=== PATIENT | male | born 1960 | race Caucasian/White ===

== ENCOUNTER 2021-11-28 16:04 | Emergency (ER) | payer OTHER ==
--- NOTE | 2021-11-28 17:36 | RAD REPORT ---
EXAM DESCRIPTION: RAD - Foot Right 3 View - 11/28/2021 5:24 pm CLINICAL HISTORY: Right foot pain status post injury FINDINGS: No fracture or dislocation is seen
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
[2021-11-28 18:17] VITALS: O2SAT 95
[2021-11-28 18:19] VITALS: BP 142/83; TEMP 98.3
== END 2021-11-28 18:12 | disposition home or self-care (01) ==
LOC: ER 16:04
DX: M79.674 Pain in right toe(s) (principal); Z88.8 Allergy status to other drugs, medicaments and biological substances

== ENCOUNTER 2022-02-07 21:06 | Emergency (ER) | payer OTHER ==
--- OUTSIDE RECORDS SUMMARY | 2022-02-07 21:10 | XMS REPORT | Continuity of Care Document ---
:1960 Author Organization [facility] t Address [address] [place] [address] Care Team Providers Name Role Phone Asked, No Pcp Primary Care Physician Unavailable Lux RN, Su Attending Clinician Unavailable Tonia Irby MD Attending Clinician TONIA IRBY Admitting Clinician Unavailable Payers Payer Name Policy Type Policy Number Effective Date Expiration Date S ource Problems Condition Condition Condition Status Onset Resolution Last Treating Co mments Source Name Details Category Date Date Treatment Clinician Date Neuropathy Neuropathy Disease Active 0 [facility] Hosp[facility] 00 l Gastroesop Gastroesop Disease Active M ethodi hageal hageal [address] [facility] reflux reflux 00:00: Hospita disease disease 00 l without without esophagiti esophagiti s s Chest pain Chest pain Disease Active 0 [facility] 00:00: Hospita 00 l PTSD PTSD Disease Active [facility] (post-trau (post-trau 3-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 matic 00:00: Hospita stress stress 00 l disorder) disorder) Allergies, Adverse Reactions, Alerts Allergy Allergy Status Severity Reaction(s) Onset Inactive Treating Comm ents Source Name Type Date Date Clinician Hydromor Propensi Active Anaphylaxis M ethodi phone ty to [address] adverse 00:00: Hospita reaction 00 l s to drug Social History Social Habit Start Date Stop Date Quantity Comments Source Sex Assigned At [birth year] [facility] 00:00:00 00:00:00 Smoking Status Start Date Stop Date Source Tobacco smoking consumption unknown [facility] Medications Ordered Filled Start Stop Current Ordering Indication Dosage Frequency Signature Comments Components Source Medication Medication Date Date Medication? Clinician (SIG) Name Name gabapentin Yes 800mg [id number] Take 800 [facility] (NEURONTIN) 08-08 [id number] mg by s t 800 mg 09:10: 3D mouth 3 Hospita tablet 05 (three) l times a day. omeprazole Yes 20mg Q.5D Take 20 mg M ethodi (PriLOSEC) 08-[address] 20 MG 09:10: (two) Hospita capsule 05 times a l day. FLUoxetine Yes 40mg QD Take 40 mg M ethodi (PROzac) 40 08-[address] MG capsule 09:10: daily. Hospi ta 05 l aspirin Yes 81mg QD Take 81 mg Meth elle (ECOTRIN) 08-[address] 81 MG 09:10: daily. Hospita enteric 05 l coated tablet nitroglycer 2021- No .4mg Place 1 Me thodi in 08-[address] (NITROSTAT) 00:00: 04:59 (0.4 mg Ho spita 0.4 MG SL 00 :00 total) l tablet under the tongue every 5 (five) minutes as needed for chest pain for up to 30 days. ranolazine 2021- No 500mg Q.5D Take 1 Met hodi (RANEXA) 08-[address] 500 MG 12 00:00: 04:59 (500 mg Hosp anshul hr ER 00 :00 total) by l tablet mouth in the morning and 1 tablet (500 mg total) before bedtime. Do all this for 30 days. atorvastati 2021- No 40mg QD Take 1 Met hodi n (Lipitor) 08-06 tablet (40 s t 40 mg 00:00: 04:59 mg total) Hospit a tablet 00 :00 by mouth l in the morning for 30 days. Vital Signs Vital Name Observation Time Observation Value Comments Source Systolic blood 2021-08-07 13:30:31 153 mm[Hg] [facility] Hospital pressure Diastolic blood 2021-08-07 13:30:31 78 mm[Hg] [facility] pressure Heart rate 2021-08-07 13:30:31 60 /min [facility] Body temperature 2021-08-07 13:30:31 36.33 [facility] Respiratory rate 2021-08-07 13:30:31 17 /min [facility] Oxygen saturation in 2021-08-07 13:30:31 96 /min [facility] Arterial blood by Pulse oximetry Body weight 2021-08-07 09:57:07 145.968 kg [facility] BMI 2021-08-07 09:57:07 42.46 kg/m2 [facility] Body height 2021-08-05 15:30:00 185.4 cm [facility] Procedures Procedure Date / Time Performed Performing Clinician Sour e HC COMPLETE BLD COUNT 2021-08-07 11:29:00 [facility] W/AUTO DIFF BASIC METABOLIC PANEL 2021-08-07 11:29:00 [facility] ESTIMATED GFR 2021-08-07 11:29:00 [facility] HC COMPLETE BLD COUNT 2021-08-06 11:33:00 [facility] W/AUTO DIFF BASIC METABOLIC PANEL 2021-08-06 11:33:00 [facility] ESTIMATED GFR 2021-08-06 11:33:00 [facility] NM MYOCARDIAL PERFUSION 2021-08-05 21:36:26 [facility] STRESS REST 1 DAY CV STRESS TEST NUCLEAR 2021-08-05 17:50:49 [facility] CARDIO CV SPECT CA SC TECH ONLY 2021-08-05 16:48:00 [facility] ORDER TTE COMPLETE, W 2021-08-05 16:00:00 [facility] CONTRAST, W DOPPLER ([id number]) TROPONIN T 2021-08-05 15:45:00 [facility] BASIC METABOLIC PANEL 2021-08-05 10:35:00 [facility] LIPID PANEL 2021-08-05 10:35:00 [facility] ESTIMATED GFR 2021-08-05 10:35:00 [facility] HC COMPLETE BLD COUNT 2021-08-05 10:35:00 [facility] W/AUTO DIFF ECG 12-LEAD 2021-08-05 08:44:31 [facility] COVID-19 ANTI-SPIKE IGG 2021-08-05 05:37:00 [facility] ANTIBODY TITER COVID-19 SEROLOGY 2021-08-05 05:37:00 [facility] PATIENT SURVEILLANCE HEMOGLOBIN A1C 2021-08-05 05:37:00 [facility] THYROID STIMULATING 2021-08-05 05:37:00 [facility] HORMONE T4, FREE 2021-08-05 05:37:00 [facility] TROPONIN T 2021-08-05 05:37:00 [facility] Plan of Care Planned Activity Planned Date Details Comments Source Future Scheduled 2022-02-03 HEPATITIS B VACCINES [facility] Test 06:47:48 (1 of 3 - 3-dose series) [code = HEPATITIS B VACCINES (1 of 3 - 3-dose series)] Future Scheduled 2022-02-03 COVID-19 VACCINE (#1) [facility] Test 06:47:48 [code = COVID-19 VACCINE (#1)] Future Scheduled 2022-02-03 Hepatitis C screening [facility] Test 06:47:48 (procedure) [code = 810362040] Future Scheduled 2022-02-[address] [facility] Test 06:47:48 [code = COLONOSCOPY SCREENING] Future Scheduled 2022-02-03 SHINGLES VACCINES (1 [facility] Test 06:47:48 of 2) [code = SHINGLES VACCINES (1 of 2)] Future Scheduled 2022-02-03 INFLUENZA VACCINE Method [facility] Test 06:47:48 [code = INFLUENZA VACCINE] Encounters Start End Encounter Admission Attending Care Care Encounter Source Date/Time Date/Time Type Type Clinicians Facility Department ID 2021-08-09 2021-08-09 [facility], [id number] [facility] 00:00:00 00:00:[place] [id number] [id number] Hospit a .[id number] l .8 2021-08-04 2021-08-07 [facility], 1.2.840.1 [id number] Methodi 21:39:00 09:10:00 Encounter Tonia Martinez [id number] [id number] Hospit [id number] .[id number] l .8 2021-08-04 2021-08-07 [place] [id number] 51 [place] 00:00:00 00:00:[address] TONIA [address] 2021-08-05 2021-08-05 [facility], 1.2.840.1 [id number] Methodi 14:40:10 23:59:00 Encounter Tonia Martinez [id number] [id number] Hospit a .[id number] l .8 2021-08-05 2021-08-05 [facility] 61 [place] 00:00:00 00:00:00 TONIA [address] Results Test Description Test Time Test Comments Results Result Comments Source Cv stress test 2021-08-06 11:09:55 Test Item Value Reference Range Interpretation Comme nts Resting HR (test code = 9919508947) Resting BP (test code = 2311306975) Peak MET Achieved (test code = 4642882765) Protocol Name (test code = 3758222034) REGADENO Time in Exercise Phase (test code = 00:01:00 3059530994) Max Systolic BP (test code = 2907450719) Max Diastolic BP (test code = 9222371481) Max Heart Rate (test code = 5725904049) Max Predicted Heart Rate (test code = 2409088794) Target HR Formula (test code = (220 - Age)*100% 2146837137) Test Indication (test code = chest pain 0699156260) Arrhy During Ex (test code = 9330269973) ECG Interp Before EX (test code = 3813625644) ECG Interp During Ex (test code = 9922686384) Ex Summary Comment (test code = 0217959285) Overall HR Response to Exercise (test code = 7417925046) Overall BP Response To Exercise (test code = 4090646523) Reason for Termination (test code = Protocol Complete 6709671771) Stress Test Impression (test code = Waveform interpreted in report associated 0122523636) with image study. No interpretation is provided as part of this Stress ECG report.--Electronically Signed By Wiley AVALOS, Doug ([id number]), editorial specialist Annie Casiano ([id number]) on 08/06/2021 5:09:51 [facility] [id number] 17:58:43 Test Item Value Reference Range Interpretation Comments Ventricular rate (test code = 253) Atrial rate (test code = 255) WI interval (test code = 266) QRSD interval (test code = 260) QT interval (test code = 264) QTC interval (test code = 265) P axis 1 (test code = 267) QRS axis 1 (test code = 268) T wave axis (test code = 270) EKG impression (test Sinus code = 273) bradycardia-Incomplet e right bundle branch block-Nonspecific T wave abnormality-Abnormal ECG-No previous ECGs available-Electronica lly Signed By Min Dove MD ([id number]) on 08/05/2021 11:58:42 AM [facility]
[2022-02-07 21:41] LABS: Urine Blood Negative (Negative); Urine Glucose Negative (Negative); Urine Protein Trace (Negative); Urine Specific Gravity >=1.030 (1.005-1.030); Urine pH 5.5 (5.0-7.0)
[2022-02-07] MEDS ORDERED: HYDROCODONE/APAP 10/325 TAB ONE (21:43)
[2022-02-07] MEDS ORDERED: KETOROLAC 30 MG/ML INJ ONE (21:43)
--- NOTE | 2022-02-07 22:24 | RAD REPORT ---
EXAM DESCRIPTION: CT - Stone Protocol - 02/07/2022 9:52 pm CLINICAL HISTORY: flank pain COMPARISON: No comparisons TECHNIQUE: Axial 3 mm thick images were obtained without oral or IV contrast. The [id number] span s the entirety of the system including uppermost abdomen and lung bases. All CT scans are performed using dose optimization technique as appropriate and may include automated exposure control or mA/KV adjustment according to patient size. FINDINGS: No hydronephrosis is present and no obstructing ureteral calculi. No nonobstructing calcul i seen. In the lateral mid left kidney there is a 3.3 centimeter round low-attenuation mass with flui d attenuation value. A 4.5 centimeter fluid attenuation mass is present in the lower pole of the left kidney. These are not fully characterized but almost certainly incidental cysts. No suspicious renal masses. Isodense masses and pyelonephritis are not excluded on a stone protocol CT scan. No signific ant adrenal finding. No urinary bladder suspicious finding. Prostate gland is enlarged. Imaged portions of the liver, spleen and pancreas show no suspicious findings on non-contrast imaging . Liver attenuation is borderline fatty infiltrated. Cholecystectomy clips are present. No biliary tr ee dilatation seen. No suspicious bowel findings. Appendix is normal. No mass or bulky lymphadenopathy. 3 centimeter fat only umbilical hernia is present. No free air, sherin e fluid or inflammatory stranding. No significant bony abnormality. L5-S1 degenerative disc disease is present with prominent facet dege nerative change at this level. IMPRESSION: No hydronephrosis, obstructing calculus or other acute finding. Isodense masses and pyelonephritis are not excluded on stone protocol technique.Two round low-density masses of the left kidney is almost certainly incidental cysts.
--- NOTE | 2022-02-07 22:40 | ER ---
Nurse's Notes [facility] Name: Aravind Tyler Age: 61 yrs Sex: Male : 1960 Arrival Date: 02/07/2022 Time: 21:12 Bed 15 Private MD: Diagnosis: Low back pain Presentation: 02/07 21:14 Chief complaint: Patient states: "I either have a kidney stone or threw my back out". as6 Coronavirus screen: At this time, the client does not indicate any symptoms associated with coronavirus-19. Ebola Screen: No symptoms or risks identified at this time. Initial Sepsis Screen: Does the patient meet any 2 criteria? No. Patient's initial sepsis screen is negative. Does the patient have a suspected source of infection? No. Patient's initial sepsis screen is negative. Risk Assessment: Do you want to hurt yourself or someone else? Patient reports no desire to harm self or others. Onset of symptoms was February 03, 2022. 21:14 Method Of Arrival: Wheelchair as6 21:14 Acuity: TED 3 as6 Triage Assessment: 21:25 General: Appears uncomfortable, Behavior is calm, cooperative. Pain: Complains of pain as6 in right flank. Historical: - Allergies: 21:20 Dilaudid; as6 - Home Meds: 21:20 gabapentin 800 mg oral tab 1 tab 3 times per day [Active]; omeprazole 20 mg Oral cpDR 1 as6 cap once daily [Active]; aspirin 81 mg Oral cap 1 cap once daily [Active]; atorvastatin oral [Active]; - PMHx: 21:20 back injury; Kidney stone; Hypertensive disorder; Hypercholesterolemia; as6 - PSHx: 21:20 knee; back; shoulder; Cholecystectomy; hernia; as6 - Immunization history:: Client reports receiving the 2nd dose of the Covid vaccine, moderna . - Social history:: Smoking status: Patient denies any tobacco usage or history of. Screenin:44 Abuse screen: Denies threats or abuse. Nutritional screening: No deficits noted. ja4 Tuberculosis screening: No symptoms or risk factors identified. Fall Risk Ambulatory Aid- None/Bed Rest/Nurse Assist (0 pts). Assessment: 21:44 General: Appears uncomfortable, obese, Behavior is calm, cooperative, appropriate for ja4 age. Pain: Complains of pain in back. : Reports pain. Vital Signs: 21:14 BP 145 / 91; Pulse 76; Resp 18 S; Temp 98.0(O); Pulse Ox 96% on R/A; Weight 136.08 kg as6 (R); Height 6 ft. 1 in. (185.42 cm) (R); Pain 7/10; 22:49 BP 145 / 91; Pulse 76; Resp 16; Pulse Ox 96% on R/A; ja4 21:14 Body Mass Index 39.58 (136.08 kg, 185.42 cm) as6 ED Course: 21:12 Patient arrived in ED. bp1 21:15 [facility] kb 21:15 Hood Batista MD is Attending Physician. kb 21:20 Triage completed. as6 21:25 Arm band placed on. as6 21:35 Slava Mcintosh, RN is Primary Nurse. ja4 21:44 No provider procedures requiring assistance completed. ja4 21:54 Stone Protocol In Process Unspecified. EDMS Administered Medications: 21:40 Drug: Ketorolac 30 mg Route: IM; Site: right deltoid; ja4 21:40 Drug: [place] (HYDROcodone-acetaminophen) 10 mg-325 mg 1 tabs Route: PO; ja4 Medication: 21:44 VIS not applicable for this client. ja4 Outcome: 22:39 Discharge ordered by . kb 22:49 Discharged to home ambulatory. ja4 22:49 Condition: stable 22:49 Discharge instructions given to patient, Instructed on discharge instructions, follow up and referral plans. medication usage, Prescriptions given X 2. 22:50 Patient left the ED. ja4 Signatures: Dispatcher [employer] EDMS Fanny Lara FNP-C FNP-Ckb [place], Brittany bp1 Slawson, Ashby, RN RN as6 Slava Mcintosh, CHAIM RN ja4
--- NOTE | 2022-02-07 22:40 | EDPHYS ---
Physician Documentation [facility] Name: Aravind Tyler Age: 61 yrs Sex: Male : 1960 Arrival Date: 02/07/2022 Time: 21:12 Bed 15 Private MD: ED Physician Hood Batista HPI: 02/07 22:32 This 61 yrs old Male presents to ER via Wheelchair with complaints of Back Pain, kb Possible Kidney Stone. 22:32 The patient presents with pain that is acute, with no known mechanism of injury. The kb symptoms are located in the right mid back and right low back. Onset: The symptoms/episode began/occurred today. The pain radiates to the abdomen and right leg. Associated signs and symptoms: The patient has no apparent associated signs or symptoms. The problem was sustained from unknown cause. Modifying factors: The patient symptoms are alleviated by nothing, the patient symptoms are aggravated by any movement. Severity of symptoms: At their worst the symptoms were moderate, in the emergency department the symptoms are unchanged. The patient has not experienced similar symptoms in the past. The patient has not recently seen a physician. Pt reports right flank/low back pain that radiates around to abd and down leg. States he has chronic back pain that gives him trouble every once in a while and also has a history of kidney stones so he isn't sure which is causing the pain today. Historical: - Allergies: 21:20 Dilaudid; as6 - Home Meds: 21:20 gabapentin 800 mg oral tab 1 tab 3 times per day [Active]; omeprazole 20 mg Oral cpDR 1 as6 cap once daily [Active]; aspirin 81 mg Oral cap 1 cap once daily [Active]; atorvastatin oral [Active]; - PMHx: 21:20 back injury; Kidney stone; Hypertensive disorder; Hypercholesterolemia; as6 - PSHx: 21:20 knee; back; shoulder; Cholecystectomy; hernia; as6 - Immunization history:: Client reports receiving the 2nd dose of the Covid vaccine, moderna . - Social history:: Smoking status: Patient denies any tobacco usage or history of. ROS: 22:30 Constitutional: Negative for fever, chills, and weight loss. kb 22:30 Back: Positive for flank pain, on the right. 22:30 All other systems are negative. Exam: 22:32 Constitutional: This is a well developed, well nourished patient who is awake, alert, kb and in no acute distress. Head/Face: Normocephalic, atraumatic. ENT: Moist Mucous membranes Cardiovascular: Regular rate and rhythm with a normal S1 and S2. No gallops, murmurs, or rubs. No pulse deficits. Respiratory: Respirations even and unlabored. No increased work of breathing. Talking in full sentences Abdomen/GI: Soft, non-tender. No distention Skin: Warm, dry with normal turgor. Normal color. MS/ Extremity: Pulses equal, no cyanosis. Neurovascular intact. Full, normal range of motion. Neuro: Awake and alert, GCS 15, oriented to person, place, time, and situation. Moves all extremities. Normal gait. Psych: Awake, alert, with orientation to person, place and time. Behavior, mood, and affect are within normal limits. 22:32 Back: pain, that is moderate, of the right mid back and right low back, ROM is painful, normal spinal alignment noted, CVA tenderness, that is mild, is noted on the right, vertebral tenderness, is not appreciated. Vital Signs: 21:14 BP 145 / 91; Pulse 76; Resp 18 S; Temp 98.0(O); Pulse Ox 96% on R/A; Weight 136.08 kg as6 (R); Height 6 ft. 1 in. (185.42 cm) (R); Pain 7/10; 22:49 BP 145 / 91; Pulse 76; Resp 16; Pulse Ox 96% on R/A; ja4 21:14 Body Mass Index 39.58 (136.08 kg, 185.42 cm) as6 MDM: 21:19 Patient medically screened. kb 22:30 Data reviewed: vital signs, nurses notes. Data interpreted: Pulse oximetry: on room air kb is 96 %. Interpretation: normal. Counseling: I had a detailed discussion with the patient and/or guardian regarding: the historical points, exam findings, and any diagnostic results supporting the discharge/admit diagnosis, lab results, radiology results, the need for outpatient follow up, a family practitioner, to return to the emergency department if symptoms worsen or persist or if there are any questions or concerns that arise at home. 02/07 21:42 Order name: Urine Dipstick-Ancillary; Complete Time: 21:44 EDMS 02/07 21:20 Order name: CT Stone Protocol kb 02/07 21:20 Order name: Urine Dipstick-Ancillary (obtain specimen); Complete Time: 21:40 kb 02/07 21:24 Order name: Stone Protocol; Complete Time: 22:26 EDMS Administered Medications: 21:40 Drug: Ketorolac 30 mg Route: IM; Site: right deltoid; ja4 21:40 Drug: Maybell (HYDROcodone-acetaminophen) 10 mg-325 mg 1 tabs Route: PO; ja4 Disposition: 02/08 00:02 Co-signature as Attending Physician, Hood Batista MD. rn Disposition Summary: 02/07/22 22:39 Discharge Ordered Location: Home kb Condition: Stable kb Diagnosis - Low back pain kb Followup: kb - With: Emergency Department - When: As needed - Reason: Worsening of condition Followup: kb - With: Private Physician - When: 2 - 3 days - Reason: Recheck today's complaints, Continuance of care, Re-evaluation by your physician Discharge Instructions: - Discharge Summary Sheet kb - Musculoskeletal Pain kb - Chronic Back Pain, [id number] kb Forms: - Medication Reconciliation Form kb - Thank You Letter kb - Antibiotic Education kb - Prescription Opioid Use kb Prescriptions: - Cyclobenzaprine 10 mg Oral Tablet - take 1 tablet by ORAL route every 8 hours As needed; 15 tablet; Refills: 0, kb Product Selection Permitted - Diclofenac Sodium 75 mg Oral tablet,delayed release (DR/EC) - take 1 tablet by ORAL route 2 times per day As needed; 30 tablet; Refills: 0, kb Product Selection Permitted Signatures: Dispatcher [employer] EDAR Fanny Lara, [employer] MANAGEMENT DEVELOPER-Hood Soliz MD MD rn Slawson, Ashby, RN RN as6 Slava Mcintosh RN RN ja4
[2022-02-08 01:35] VITALS: BP 145/91; TEMP 98; O2SAT 96
== END 2022-02-07 22:50 | disposition home or self-care (01) ==
LOC: ER 21:06
DX: M54.50 Low back pain, unspecified (principal); I10 Essential (primary) hypertension; Z87.442 Personal history of urinary calculi; Z79.82 Long term (current) use of aspirin; Z88.8 Allergy status to other drugs, medicaments and biological substances
CPT/HCPCS: 74176; 76377; 81003; 96372; 99283

== ENCOUNTER 2023-03-18 14:12 | Emergency (ER) | payer OTHER ==
--- OUTSIDE RECORDS SUMMARY | 2023-03-18 15:36 | XMS REPORT | Continuity of Care Document ---
:1960 Author Organization [facility] t Address [address] [place] [address] [address] [place] [address] Care Team Providers Name Role Phone Missy Fernandez Primary Care Physician Missy Fernandez Attending Clinician Unavailable Clifford Mckeon Attending Clinician Unavailable Doctor Unassigned, Hyrum Attending Clinician Unavailable MAURICIO MIGUEL Attending Clinician Unavailable Elinor Irby DO Attending Clinician Mauricio Miguel MD Attending Clinician Su Wasserman RN Attending Clinician Unavailable Tonia Irby MD Attending Clinician Missy Fernandez Admitting Clinician Unavailable ELINOR IRBY Admitting Clinician Unavailable TONIA IRBY Admitting Clinician Unavailable Payers Payer Name Policy Type Policy Number Effective Date Expiration Date Amee LUKE [id number] 2022 00:00:00 Problems Condition Condition Condition Status Onset Resolution Last Treating Co mments Source Name Details Category Date Date Treatment Clinician Date Gastroesop Gastroesop Disease Active 2022-0 M ethodi hageal hageal 3-05 st reflux reflux 00:00: Hospita disease disease 00 l without without esophagiti esophagiti s s Chest pain Chest pain Disease Active M ethodi [facility] 00:00: Hospita 00 l PTSD PTSD Disease Active Methodi (post-trau (post-trau 3 st matic matic 00:00: Hospita stress stress 00 l disorder) disorder) Neuropathy Neuropathy Disease Active M ethodi [facility] 00:00: Hospita 00 l [id number] Derangemen Problem C ommon [id number] t of right Spiri t knee - [facility] [id number] [place] [address] osteoarthr Spirit itis of - CHI right knee [facility] [id number] [place], [place] [id number] joint, Spirit knee, - [facility] right [facility] [id number] Other tear Problem Co mmon of medial Spirit meniscus - CHI of right St knee as [facility] current Medical injury, Center initial encounter [id number] Coronary Problem Commo n artery Spirit disease of - [facility] [place] [facility] artery of [facility] [place] Medical heart with Center stable angina pectoris [id number] Gastric Problem Commo n ulcer, Spirit unspecifie - CHI d as acute or [facility] chronic, Medical without Center hemorrhage or perforatio n [id number] Current Problem Common moderate Spirit episode of - CHI major St depressive [facility] disorder Medical without Center prior episode [id number] Pure Problem Common hyperchole Spirit sterolemia - [facility] [id number] Anxiety Problem Common Spirit - [facility] [id number] YEIMI Problem Common (obstructi Spirit ve sleep - CHI apnea) [facility] [id number] Gastroesop Problem Co mmon hageal Spirit reflux - CHI disease St with [facility] esophagiti Medica l s without Center hemorrhage Allergies, Adverse Reactions, Alerts Allergy Allergy Status Severity Reaction(s) Onset Inactive Treating Comm ents Source Name Type Date Date Clinician clindamy DA Active SV Hives 2022-06 [facility] ann 0-16 00:00: 00 hydromor DA Active SV Difficulty 2022-06 [facility] m phone Breathing 0-12 00:00: 00 Hydromor Propensi Active Other - See U nivers phone ty to comments 07-03 ity of (Pf) adverse 00:00: [place] reaction 00 Medical s Branch HYDROMOR DRUG Active Other-Cmnt Univ ers PHONE 07-03 ity of (PF) 00:00: [place] 00 Medical Branch Hydromor Propensi Active Anaphylaxis M ethodi phone ty to 08-04 st adverse 00:00: Hospita reaction 00 l s to drug 13644 Drug Active Unknown Common allergy [facility] hydromor hydromor Active Unknown Commo n phone phone [facility] NO KNOWN Drug Active Univers ALLERGIE Class ity of [facility] Social History Social Habit Start Date Stop Date Quantity Comments Source History of Tobacco Common [facility] Use [facility] Sexual orientation [facility] Exposure to 2022-06-23 2022-07-03 Not sure [facility] SARS-CoV-2 (event) 00:00:00 14:17:00 Medica Branch History of Social 2021-08-06 2021-08-06 [facility] 00:00:00 Sex Ass[birth year] At [birth year] Met [facility] 00:00:00 00:00:00 Smoking Status Start Date Stop Date Source Tobacco smoking consumption [facility] unknown Never Smoker [facility] Medications Ordered Filled Start Stop Current Ordering Indication Dosage Frequency Signature Comments Components Source Medication Medication Date Date Medication? Clinician (SIG) Name Name iopamidol 2022- No [id number] 79mL 79 mL, Univers (ISOVUE 07-03 Intravenou ity o f 370-500 mL) 23:15: 23:15 s, ONCE, 1 [place] injection 00 :00 dose, On Medica l 79 mL 07/03/22 Branch at 1715, Routine ketorolac 2022- No 30mg 30 mg, Unive rs (TORADOL) 07-03 Slow IV ity of injection 23:00: 22:01 Push, [place] 30 mg 00 :00 ONCE, 1 Medical dose, On Branch 07/03/22 at 1700, Routine NaCl 0.9% 2022- No 1000mL at 999 Uni vers (NS) bolus 07-03 mL/hr, ity of infusion 21:45: 01:57 1,000 mL, Dami as 1,000 mL 00 :00 IV Medical Infusion, Branch ONCE, 1 dose, On Fri07/03/22 at 1545, NICK dexamethaso 0 2022- No 10mg 10 mg, Uni vers ne sod phos 07-03 Slow IV ity of PF 21:00: 21:55 Push, [place] injection 00 :00 ONCE, 1 Medical 10 mg dose, On Branch Fri07/03/22 at 1500, 1 mL diphenhydrA 2022- No 50mg 50 mg, Uni vers MINE 07-03 Slow IV ity of (BENADRYL) 21:00: 21:57 Push, [place] injection 00 :00 ONCE, 1 Medical 50 mg dose, On Branch Fri07/03/22 at 1500, STAT metoclopram 0 2022- No 10mg 10 mg, Uni vers gabrielle HCl 07-03 Slow IV ity of (REGLAN) 21:00: 21:52 Push, [place] injection 00 :00 ONCE, 1 Medical 10 mg dose, On Branch Fri07/03/22 at 1500, NICK butalbital- 2022-0 Yes [id number] 1{tbl} Take 1 Univers acetaminoph 2-01 tablet by ity of en-caff 00:00: mouth [place] 50-325-40 00 every 6 Medical mg tablet (six) Branch hours as needed (Headache) . butalbital- 2022-0 Yes [id number] 1{tbl} Take 1 Univers acetaminoph 2-01 tablet by ity of en-caff 00:00: mouth [place] 50-325-40 00 every 6 Medical mg tablet (six) Branch hours as needed (Headache) . Lidocaine Lidocaine 2022-0 No 10mg Com 06-13 Spirit 00:00: - [facility] Kenalog Kenalog 2022-0 No 40mg Common (Triamcinol (Triamcinol 1-12 S pirit one) one) 00:00: - [facility] Lidocaine Lidocaine 2022-0 No 10mg Com 06-13 Spirit 00:00: - [facility] Kenalog Kenalog 2023-0 No 40mg Common (Triamcinol (Triamcinol 1-12 S pirit one) one) 00:00: - CHI 00 [facility] Lidocaine Lidocaine 2022-0 No 10mg Com mon - Spirit 00:00: - CHI 00 [facility] Kenalog Kenalog 2022-0 No 40mg Common (Triamcinol (Triamcinol 1-12 S pirit one) one) 00:00: - CHI 00 [facility] Meloxicam Meloxicam 2022-0 3- No 1{table QD Meloxicam 7.5 MG 7.5 MG 06-13 t} 7.5 MG 00:00: 00:00 00 :00 Meloxicam Meloxicam 2022-0 2022- No 1{table QD Meloxicam 7.5 MG 7.5 MG 06-13 t} 7.5 MG 00:00: 00:00 00 :00 Meloxicam Meloxicam 2022-0 2022- No 1{table QD Meloxicam 7.5 MG 7.5 MG 06-13 t} 7.5 MG 00:00: 00:00 00 :00 gabapentin 2021-0 Yes 800mg Q.[id number] Take 800 Methodi (NEURONTIN) 3-09 [id number] mg by s t 800 mg 09:10: 3D mouth 3 Hospita tablet 05 (three) l times a day. omeprazole 2021-0 Yes 20mg Q.5D Take 20 mg M ethodi (PriLOSEC) 3- by mouth 2 st 20 MG 09:10: (two) Hospita capsule 05 times a l day. FLUoxetine 2021-0 Yes 40mg QD Take 40 mg M ethodi (PROzac) 40 3-[address] MG capsule 09:10: daily. Hospi ta 05 l aspirin 2-0 Yes 81mg QD Take 81 mg Meth elle (ECOTRIN) 3-[address] 81 MG 09:10: daily. Hospita enteric 05 l coated tablet gabapentin 2-0 Yes 800mg Q.28018308 Take 800 Methodi (NEURONTIN) 3-09 [id number] mg by s t 800 mg 09:10: 3D mouth 3 Hospita tablet 05 (three) l times a day. omeprazole 2022-0 Yes 20mg Q.5D Take 20 mg M ethodi (PriLOSEC) 3-[address] 20 MG 09:10: (two) Hospita capsule 05 times a l day. FLUoxetine 2022-0 Yes 40mg QD Take 40 mg M ethodi (PROzac) 40 3-[address] MG capsule 09:10: daily. Hospi ta 05 l aspirin 2022-0 Yes 81mg QD Take 81 mg Meth elle (ECOTRIN) 3-[address] 81 MG 09:10: daily. Hospita enteric 05 l coated tablet gabapentin 2-0 Yes 800mg Q.[id number] Take 800 Methodi (NEURONTIN) - [id number] mg by s t 800 mg 09:10: 3D mouth 3 Hospita tablet 05 (three) l times a day. omeprazole 2-0 Yes 20mg Q.5D Take 20 mg M ethodi (PriLOSEC) 3-[address] 20 MG 09:10: (two) Hospita capsule 05 times a l day. FLUoxetine 2-0 Yes 40mg QD Take 40 mg M ethodi (PROzac) 40 3-[address] MG capsule 09:10: daily. Hospi ta 05 l aspirin 2-0 Yes 81mg QD Take 81 mg Meth elle (ECOTRIN) - by mouth st 81 MG 09:10: daily. Hospita enteric 05 l coated tablet nitroglycer 2021- No .4mg Place 1 Me thodi in 08-[address] (NITROSTAT) 00:00: 04:59 (0.4 mg Ho spita 0.4 MG SL 00 :00 total) l tablet under the tongue every 5 (five) minutes as needed for chest pain for up to 30 days. ranolazine 2021-2021- No 500mg Q.5D Take 1 Met hodi (RANEXA) 08-[address] 500 MG 12 00:00: 04:59 (500 mg Hosp anshul hr ER 00 :00 total) by l tablet mouth in the morning and 1 tablet (500 mg total) before bedtime. Do all this for 30 days. atorvastati 2021-2021- No 40mg QD Take 1 Met hodi n (Lipitor) 08-06 tablet (40 s t 40 mg 00:00: 04:59 mg total) Hospit a tablet 00 :00 by mouth l in the morning for 30 days. Cetirizine Cetirizine No 1{table QD Cetirizine HCl 10 MG HCl 10 MG t} HCl 10 MG Nitroglycer Nitroglycer No Nitroglyce in 0.4 MG in 0.4 MG rin 0.4 MG Fluticasone Fluticasone No 1{spray QD Fluticason Propionate Propionate _in_eac e 50 MCG/ACT 50 MCG/ACT h_nostr Propionate il} 50 MCG/ACT prednisoLON prednisoLON No 1{drop_ BID prednisoLO E Acetate 1 E Acetate 1 into_af NE Acetate % % fected_ 1 % eye} Atorvastati Atorvastati No 1{table QD Atorvastat n Calcium n Calcium t} in Calcium 80 MG 80 MG 80 MG Cetirizine Cetirizine No 1{table QD Cetirizine HCl 10 MG HCl 10 MG t} HCl 10 MG FLUoxetine FLUoxetine No 1{capsu QID FLUoxetine HCl 20 MG HCl 20 MG le} HCl 20 MG Gabapentin Gabapentin No 1{capsu TID Gabapentin 400 MG 400 MG le} 400 MG Ranolazine Ranolazine No 1{table BID Ranolazine ER 500 MG ER 500 MG t} ER 500 MG Omeprazole Omeprazole No QD Omeprazole 20 MG 20 MG 20 MG hydrOXYzine hydrOXYzine No 1{table QD hydrOXYzin HCl 25 MG HCl 25 MG t_at_be e HCl 25 dtime_a MG s_neede d} Aspirin 81 Aspirin 81 No 1{table QD Aspirin 81 MG MG t} MG amLODIPine amLODIPine No 1{table QD amLODIPine Besylate 5 Besylate 5 t} Besylate 5 MG MG MG Aspirin 81 Aspirin 81 No 1{table QD Aspirin 81 MG MG t} MG hydrOXYzine hydrOXYzine No 1{table QD hydrOXYzin HCl 25 MG HCl 25 MG t_at_be e HCl 25 dtime_a MG s_neede d} Ranolazine Ranolazine No 1{table BID Ranolazine ER 500 MG ER 500 MG t} ER 500 MG FLUoxetine FLUoxetine No 1{capsu QID FLUoxetine HCl 20 MG HCl 20 MG le} HCl 20 MG Atorvastati Atorvastati No 1{table QD Atorvastat n Calcium n Calcium t} in Calcium 80 MG 80 MG 80 MG Omeprazole Omeprazole No QD Omeprazole 20 MG 20 MG 20 MG prednisoLON prednisoLON No 1{drop_ BID prednisoLO E Acetate 1 E Acetate 1 into_af NE Acetate % % fected_ 1 % eye} Gabapentin Gabapentin No 1{capsu TID Gabapentin 400 MG 400 MG le} 400 MG Fluticasone Fluticasone No 1{spray QD Fluticason Propionate Propionate _in_eac e 50 MCG/ACT 50 MCG/ACT h_nostr Propionate il} 50 MCG/ACT Nitroglycer Nitroglycer No Nitroglyce in 0.4 MG in 0.4 MG rin 0.4 MG amLODIPine amLODIPine No 1{table QD amLODIPine Besylate 5 Besylate 5 t} Besylate 5 MG MG MG Cetirizine Cetirizine No 1{table QD Cetirizine HCl 10 MG HCl 10 MG t} HCl 10 MG Aspirin 81 Aspirin 81 No 1{table QD Aspirin 81 MG MG t} MG hydrOXYzine hydrOXYzine No 1{table QD hydrOXYzin HCl 25 MG HCl 25 MG t_at_be e HCl 25 dtime_a MG s_neede d} Ranolazine Ranolazine No 1{table BID Ranolazine ER 500 MG ER 500 MG t} ER 500 MG FLUoxetine FLUoxetine No 1{capsu QID FLUoxetine HCl 20 MG HCl 20 MG le} HCl 20 MG Atorvastati Atorvastati No 1{table QD Atorvastat n Calcium n Calcium t} in Calcium 80 MG 80 MG 80 MG Omeprazole Omeprazole No QD Omeprazole 20 MG 20 MG 20 MG prednisoLON prednisoLON No 1{drop_ BID prednisoLO E Acetate 1 E Acetate 1 into_af NE Acetate % % fected_ 1 % eye} Gabapentin Gabapentin No 1{capsu TID Gabapentin 400 MG 400 MG le} 400 MG Fluticasone Fluticasone No 1{spray QD Fluticason Propionate Propionate _in_eac e 50 MCG/ACT 50 MCG/ACT h_nostr Propionate il} 50 MCG/ACT Nitroglycer Nitroglycer No Nitroglyce in 0.4 MG in 0.4 MG rin 0.4 MG amLODIPine amLODIPine No 1{table QD amLODIPine Besylate 5 Besylate 5 t} Besylate 5 MG MG MG Cetirizine Cetirizine No 1{table QD Cetirizine HCl 10 MG HCl 10 MG t} HCl 10 MG Aspirin 81 Aspirin 81 No 1{table QD Aspirin 81 MG MG t} MG hydrOXYzine hydrOXYzine No 1{table QD hydrOXYzin HCl 25 MG HCl 25 MG t_at_be e HCl 25 dtime_a MG s_neede d} Ranolazine Ranolazine No 1{table BID Ranolazine ER 500 MG ER 500 MG t} ER 500 MG FLUoxetine FLUoxetine No 1{capsu QID FLUoxetine HCl 20 MG HCl 20 MG le} HCl 20 MG Atorvastati Atorvastati No 1{table QD Atorvastat n Calcium n Calcium t} in Calcium 80 MG 80 MG 80 MG Omeprazole Omeprazole No QD Omeprazole 20 MG 20 MG 20 MG prednisoLON prednisoLON No 1{drop_ BID prednisoLO E Acetate 1 E Acetate 1 into_af NE Acetate % % fected_ 1 % eye} Gabapentin Gabapentin No 1{capsu TID Gabapentin 400 MG 400 MG le} 400 MG Fluticasone Fluticasone No 1{spray QD Fluticason Propionate Propionate _in_eac e 50 MCG/ACT 50 MCG/ACT h_nostr Propionate il} 50 MCG/ACT Nitroglycer Nitroglycer No Nitroglyce in 0.4 MG in 0.4 MG rin 0.4 MG amLODIPine amLODIPine No 1{table QD amLODIPine Besylate 5 Besylate 5 t} Besylate 5 MG MG MG Vital Signs Vital Name Observation Time Observation Value Comments Source Systolic blood 2022-07-04 00:30:00 147 mm[Hg] [facility] Diastolic blood 2022-07-04 00:30:00 89 mm[Hg] [facility] Heart rate 2022-07-04 00:30:00 54 /min [facility] Respiratory rate 2022-07-04 00:30:00 10 /min [facility] Oxygen saturation in 2022-07-04 00:30:00 95 /min [facility] Arterial blood by [facility] Pulse oximetry Branch Body temperature 2022-07-03 20:19:00 37.28 Chanel [facility] Body height 2022-07-03 20:19:00 185.4 cm [facility] Body weight 2022-07-03 20:19:00 131.543 kg [facility] BMI 2022-07-03 20:19:00 38.26 kg/m2 [facility] height 2022-06-13 09:30:00 70 [in_i] Common [facility] weight 2022-06-13 09:30:00 301 [lb_av] Common [facility] temperature 2022-06-13 09:30:00 97.3 [degF] Common [facility] bmi 2022-06-13 09:30:00 43.18 kg/m2 Common [facility] blood pressure 2022-06-13 09:30:00 137 mm[Hg] Common [facility] - systolic [facility] blood pressure 2022-06-13 09:30:00 89 mm[Hg] Common [facility] - diastolic [facility] height 2022-05-15 09:00:00 70 [in_i] [facility] weight 2022-05-15 09:00:00 301.2 [lb_av] Common [facility] temperature 2022-05-15 09:00:00 97.6 [degF] [facility] bmi 2022-05-15 09:00:00 43.21 kg/m2 [facility] oximetry 2022-05-15 09:00:00 97 % [facility] respiratory rate 2022-05-15 09:00:00 17 /min Comm on Spirit - [facility] blood pressure 2022-05-15 09:00:00 132 mm[Hg] Common [facility] - systolic [facility] blood pressure 2022-05-15 09:00:00 80 mm[Hg] Common [facility] - diastolic [facility] Systolic blood 2021-08-07 13:30:31 153 mm[Hg] [facility] pressure Diastolic blood 2021-08-07 13:30:31 78 mm[Hg] [facility] pressure Heart rate 2021-08-07 13:30:31 60 /min [facility] Body temperature 2021-08-07 13:30:31 36.33 Chanel [facility] Respiratory rate 2021-08-07 13:30:31 17 /min [facility] Oxygen saturation in 2021-08-07 13:30:31 96 /min [facility] Arterial blood by Pulse oximetry Body weight 2021-08-07 09:57:07 145.968 kg [facility] BMI 2021-08-07 09:57:07 42.46 kg/m2 [facility] Body height 2021-08-05 15:30:00 185.4 cm [facility] Procedures Procedure Date / Time Performing Clinician Source Performed AUTHORIZATION FOR 2023-02-04 05:01:00 Doctor Unassigned, No [facility] CT HEAD WO CONTRAST 2022-07-03 22:17:04 Elinor Irby [facility] COMP. METABOLIC PANEL 2022-07-03 21:49:00 Elinor Irby [facility] ([id number]) [facility] CBC WITH DIFF 2022-07-03 21:49:00 Elinor Irby [facility] CONSENT/REFUSAL FOR 2022-07-03 20:11:43 [facility] NOTICE OF PRIVACY 2022-07-03 20:09:24 [facility] 2021-08-07 11:29:00 [facility] W/AUTO DIFF BASIC METABOLIC PANEL 2021-08-07 11:29:00 [facility] ESTIMATED GFR 2021-08-07 11:29:00 [facility] HC COMPLETE BLD COUNT 2021-08-06 11:33:00 [facility] W/AUTO DIFF BASIC METABOLIC PANEL 2021-08-06 11:33:00 [facility] ESTIMATED GFR 2021-08-06 11:33:00 [facility] NM MYOCARDIAL PERFUSION 2021-08-05 21:36:26 Tonia Irby [facility] STRESS REST 1 DAY CV STRESS TEST NUCLEAR 2021-08-05 17:50:49 [place] [facility] CARDIO CV SPECT CA SC TECH ONLY 2021-08-05 16:48:00 [facility] ORDER TTE COMPLETE, W 2021-08-05 16:00:00 [facility] CONTRAST, W DOPPLER ([id number]) TROPONIN T 2021-08-05 15:45:00 [facility] HC COMPLETE BLD COUNT 2021-08-05 10:35:00 [facility] W/AUTO DIFF BASIC METABOLIC PANEL 2021-08-05 10:35:00 [facility] LIPID PANEL 2021-08-05 10:35:00 [facility] ESTIMATED GFR 2021-08-05 10:35:00 [facility] ECG 12-LEAD 2021-08-05 08:44:31 [facility] COVID-19 ANTI-SPIKE IGG 2021-08-05 05:37:00 [facility] ANTIBODY TITER COVID-19 SEROLOGY 2021-08-05 05:37:00 [facility] PATIENT SURVEILLANCE HEMOGLOBIN A1C 2021-08-05 05:37:00 [facility] THYROID STIMULATING 2021-08-05 05:37:00 [facility] HORMONE T4, FREE 2021-08-05 05:37:00 [facility] TROPONIN T 2021-08-05 05:37:00 [facility] Plan of Care Planned Activity Planned Date Details Comments Source Future Scheduled 2023-03-18 Screening for [facility] Test 15:03:08 malignant neoplasm of colon (procedure) [code = 560968596] Future Scheduled 2023-03-18 Screening for [facility] Test 15:03:08 malignant neoplasm of colon (procedure) [code = 815607460] Future Scheduled 2023-03-18 Screening for [facility] Test 15:03:08 malignant neoplasm of colon (procedure) [code = 806844749] Future Scheduled 2023-03-18 COVID[facility] 15:03:08 [code = COVID-19 VACCINE (#1)] Future Scheduled 2023-03-18 [facility] Test 15:03:08 (procedure) [code = 389521018] Future Scheduled 2023-03-18 Scre[facility] for [facility] Test 15:03:08 malignant neoplasm of colon (procedure) [code = 387502797] Future Scheduled 2023-03-18 Scre[facility] for [facility] Test 15:03:08 malignant neoplasm of colon (procedure) [code = 717848087] Future Scheduled 2023-03-18 SHINGLES VACCINES (1 [facility] Test 15:03:08 of 2) [code = SHINGLES VACCINES (1 of 2)] Future Scheduled 2023-03-18 RSV VACCINES > 60 YR [facility] Test 15:03:08 (1 - 1-dose 60+ series) [code = RSV VACCINES > 60 YR (1 - 1-dose 60+ series)] Future Scheduled 2023-03-18 INFLUENZA VACCINE Method t Hospital Test 15:03:08 (#1) [code = INFLUENZA VACCINE (#1)] Future Scheduled 2023-02-07 Scre[facility] for [facility] Test 07:40:14 malignant neoplasm of colon (procedure) [code = 997602578] Future Scheduled 2023-02-07 Scre[facility] for [facility] Test 07:40:14 malignant neoplasm of colon (procedure) [code = 883027341] Future Scheduled 2023-02-07 [facility] Test 07:40:14 malignant neoplasm of colon (procedure) [code = 154840212] Future Scheduled 2023-02-07 COVID-19 VACCINE (#1) [facility] Test 07:40:14 [code = COVID-19 VACCINE (#1)] Future Scheduled 2023-02-07 [facility] Test 07:40:14 (procedure) [code = 146848112] Future Scheduled 2023-02-07 Scre[facility] Test 07:40:14 malignant neoplasm of colon (procedure) [code = 103130167] Future Scheduled 2023-02-07 [facility] Test 07:40:14 malignant neoplasm of colon (procedure) [code = 173148372] Future Scheduled 2023-02-07 SHINGLES VACCINES (1 [facility] Test 07:40:14 of 2) [code = SHINGLES VACCINES (1 of 2)] Future Scheduled 2023-02-07 INFLUENZA VACCINE [facility] Test 07:40:14 (#1) [code = INFLUENZA VACCINE (#1)] Future Scheduled 2022-02-03 HEPATITIS B VACCINES [facility] Test 06:47:48 (1 of 3 - 3-dose series) [code = HEPATITIS B VACCINES (1 of 3 - 3-dose series)] Future Scheduled 2022-02-03 COVID-19 VACCINE (#1) [facility] Test 06:47:48 [code = COVID-19 VACCINE (#1)] Future Scheduled 2022-02-03 Hepatitis C screening [facility] Test 06:47:48 (procedure) [code = 593919172] Future Scheduled 2022-02-03 COLONOSCOPY SCREENING [facility] Test 06:47:48 [code = COLONOSCOPY SCREENING] Future Scheduled 2022-02-03 SHINGLES VACCINES (1 [facility] Test 06:47:48 of 2) [code = SHINGLES VACCINES (1 of 2)] Future Scheduled 2022-02-03 INFLUENZA VACCINE [facility] Test 06:47:48 [code = INFLUENZA VACCINE] Encounters Start End Encounter Admission Attending Care Care Encounter Source Date/Time Date/Time Type Type Clinicians Facility Department ID 2022-07-12 Outpatient [place], [facility] [id number] Common 12:11:00 Missy [id number] [facility] 2022-07-10 Outpatient Wells, [facility] [id number] Common 13:19:02 Missy [id number] [facility] 2022-06-17 Outpatient Wells, [facility] [id number] Common 11:51:01 Missy [id number] [facility] 2022-06-13 Outpatient Wells, [facility] [id number] Common 11:15:03 Missy [id number] [facility] 2022-05-16 Outpatient Wells, [facility] [id number] Common 09:31:04 Missy [id number] [facility] 2022-05-15 Outpatient Rebecca STANDI STLMLC [id number] Common 08:32:04 Missy [id number] [facility] 2023-03-17 2023-03-17 Outpatient Urgent Clifford Mckeon [facility] [id number] [facility] 16:10:00 22:00:00 57 2023-03-17 2023-03-[address] [facility] [id number] [facility] [place] 16:10:00 16:10:00 57 2023-03-13 2023-03-13 Outpatient Urgent Clifford Mckeon [facility] JM0 [id number] [facility] 18:25:00 23:05:00 69 2023-02-04 2023-02-04 Orders Doctor PAULETTE [id number] Univers 00:00:00 00:00:00 Only Unassigned, MICHEAL 350.1.13.10 ity [facility] 4.2.7.2.686 [facility] [id number] [facility] [address] 2022-07-03 2022-07-03 Emergency X LAMONT [facility] ERT [id number] Univers 14:23:00 20:20:00 MAURICIO lehman [facility] 2022-07-03 2022-07-03 Emergency Elinor Irby [facility] 1.2.8 40.114 [id number] Univers 14:23:00 20:20:00 Mauricio Miguel [place] 350.1.13.10 ity [facility] 4.2.7.2.686 [facility] [id number] [facility] [address] 2022-06-13 2022-06-13 OFFICE STLMLC STLMLC [id number] Co mmon 00:00:00 00:00:00 VISIT NEW Spir it PT LEVEL 3 - [facility] 2022-06-13 2022-06-13 (TEL) STLMLC STLMLC [id number] Co mmon 00:00:00 00:00:00 [facility] 2022-05-16 2022-05-16 (TEL) STLMLC STLMLC [id number] Co mmon 00:00:00 00:00:00 Spirit - [facility] 2022-05-15 2022-05-15 OFFICE [facility] [id number] Co mmon 00:00:00 00:00:00 VISIT LINDSEY Fulton PT LEVEL 4 - [facility] 2021-08-09 2021-08-09 Patient Lux, 1.2.840.1 [id number] Methodi 00:00:00 00:00:00 Outreach Su [address]27.1.[address] 3.430.2.7 Hospit a .3.523372 l .8 2021-08-04 2021-08-07 [facility] [place], 1.2.840.1 [id number] Methodi 21:39:00 09:10:00 Encounter Tonia Martinez 13754.1.[address] 3.430.2.7 Hospit a .3.757516 l .8 2021-08-05 2021-08-05 [facility], 1.2.840.1 [id number] Methodi 14:40:10 23:59:00 Encounter Tonia Martinez 36330.1.[address] 3.430.2.7 Hospit a .3.725606 l .8 Results Test Description Test Time Test Comments Results Result Comments Source Glucose Fingerstick 2023-03-17 20:23:00 Test Item Value Reference Range Interpretation Comme nts Glucose Fingerstick (test code = WGLUC) 103 mg/dL 70-115 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 METABOLIC PANEL ([id number])2022-07-03 22:16:20 Test Item Value Reference Range Interpretation Comments NA (test code = 134 mmol/L 135-145 L [id number]) K (test code = 5.0 mmol/L 3.5-5.0 0154656097) CL (test code = 99 mmol/L 98-108 4205492255) CO2 TOTAL (test code = 30 mmol/L 23-31 5502493886) AGAP (test code = 5 2-16 9784420552) BUN (test code = 23 mg/dL 7-23 7513825530) GLUCOSE (test code = 73 mg/dL 70-110 2176463348) CREATININE (test code = 0.97 mg/dL 0.60-1.25 8436551248) TOTAL BILI (test code = 0.8 mg/dL 0.1-1.2 2942542822) CALCIUM (test code = 9.0 mg/dL 8.6-10.6 7635658782) T PROTEIN (test code = 7.6 g/dL 6.3-8.2 5483916615) ALBUMIN (test code = 4.7 g/dL 3.5-5.0 2261567780) ALK PHOS (test code = 110 U/L 34-122 8242764632) ALTv (test code = 37 U/L 5-50 1742-6) AST(SGOT) (test code = 31 U/L 13-40 5688449515) eGFR (test code = 78.7 mL/min/1.73m2 6910957964) BRIJESH (test code = BRIJESH) Association of Glomerular Filtration Rate (GFR) and Staging of Kidney Disease* + --+ --+ ------+| GFR (mL/min/1.73 m2) ?| With Kidney Damage ?| ?Without Kidney Damage+ --------+ --------+ +| ?>90 ?| ?Stage one ?| ? Normal ?+ ---+ ---+ -------+| ?60-89 ?| ?Stage two ?| ? Decreased GFR ? + --+ --+ ------+| ?30-59 ?| ?Stage three ?| ? Stage three ? + --+ --+ ------+| ?15-29 ?| ?Stage four ? | ? Stage four ?+ ---+ ---+ -------+| ?<15 (or dialysis) ? ?| ?Stage five ? | ? Stage five ?+ ---+ ---+ -------+ *Each stage assumes the associated GFR level has been in effect for at least three months. ?Stages 1 to 5, with or without kidney disease, indicate chronic kidney disease. Notes: Determination of stages one and two (with eGFR >59mL/min/1.73 m2) requires estimation of kidney damage for at least three months as defined by structural or functional abnormalities of the kidney, manifested by either:Pathological abnormalities or Markers of kidney damage (including abnormalities in the composition of the blood or urine or abnormalities in imaging tests). Lab Interpretation Abnormal (test code = 96587-5) [facility] WITH [id number] 22:01:02 Test Item Value Reference Range Interpretation Comments WBC (test code = 7.58 See_Comment [Automated message] 9490-2) The system [employer] generated this result transmitted ref erence range: 4.20 - 1 0.70 10*3/?L. The re ference range was not u sed to interpret this result as normal/abnor mal. RBC (test code = 4.85 See_Comment [Automated message] 879-8) The system [employer] generated this result transmitted ref erence range: 4.26 - 5 .52 10*6/?L. The re ference range was not u sed to interpret this result as normal/abnor mal. HGB (test code = 14.9 g/dL 12.2-16.4 718-7) HCT (test code = 43.1 % 38.4-49.3 4544-3) MCV (test code = 88.9 fL 81.7-95.6 787-2) MCH (test code = 30.7 pg 26.1-32.7 785-6) MCHC (test code = 34.6 g/dL 31.2-35.0 786-4) RDW-SD (test code 45.1 fL 38.5-51.6 = 92016-2) RDW-CV (test code 13.9 % 12.1-15.4 = 788-0) PLT (test code = 180 See_Comment [Automated message] 567-3) The system [employer] generated this result transmitted ref erence range: 150 - 32 8 10*3/?L. The re ference range was not u sed to interpret this result as normal/abnor mal. MPV (test code = 9.8 fL 9.8-13.0 97543-8) NRBC/100 WBC (test 0.0 See_Comment [Automat ed message] code = 4812332803) The [employer] which generated this result transmitted ref erence range: 0.0 - 10 .0 /100 WBCs. The refer ence range was not u sed to interpret this result as normal/abnor mal. NRBC x10^3 (test See_Comment [Automated message] code = 9056179179) The syste m which generated this result transmitted ref erence range: 10*3/?L. The reference range was not used to interpr et this result as normal/abnormal . GRAN MAT (NEUT) % 74.1 % (test code = 770-8) IMM GRAN % (test 0.30 % code = 6520405973) LYMPH % (test code 14.6 % = 736-9) MONO % (test code 8.0 % = 5905-5) EOS % (test code = 2.5 % 713-8) BASO % (test code 0.5 % = 706-2) GRAN MAT 5.61 10*3/uL 1.99-6.95 x10^3(ANC) (test code = 9735454615) IMM GRAN x10^3 0.00-0.06 (test code = 1252861118) LYMPH x10^3 (test 1.11 10*3/uL 1.09-3.23 code = 731-0) MONO x10^3 (test 0.61 10*3/uL 0.36-1.02 code = 742-7) EOS x10^3 (test 0.19 10*3/uL 0.06-0.53 code = 711-2) BASO x10^3 (test 0.04 10*3/uL 0.01-0.09 code = 704-7) [id number] 11:09:55 Test Item Value Reference Range Interpretation Comments Resting HR (test code = 9013504650) Resting BP (test code = 1760199883) Peak MET Achieved (test code = 6270556064) Protocol Name (test REGADENO code = 2508274239) Time in Exercise 00:01:00 Phase (test code = 6979125770) Max Systolic BP (test code = 5220019569) Max Diastolic BP (test code = 2404315813) Max Heart Rate (test code = 2298359839) Max Predicted Heart Rate (test code = 8099575457) Target HR Formula (220 - Age)*100% (test code = 4726660632) Test Indication (test chest pain code = 5216782350) Arrhy During Ex (test code = 4419386795) ECG Interp Before EX (test code = 4476963348) ECG Interp During Ex (test code = 4923168284) Ex Summary Comment (test code = 8234230906) Overall HR Response to Exercise (test code = 8491672928) Overall BP Response To Exercise (test code = 9375501296) Reason for Protocol Complete Termination (test code = 7285822828) Stress Test Waveform interpreted in Impression (test code report associated with = 1911459610) image study. No interpretation is provided as part of this Stress ECG report.--Electronically Signed By Wiley AVALOS, Doug ([id number]), associate editor Annie Casiano ([id number]) on 08/06/2021 5:09:[address] [facility] 12 [id number] 17:58:43 Test Item Value Reference Range Interpretation Comments Ventricular rate (test code = 253) Atrial rate (test code = 255) RI interval (test code = 266) QRSD interval [...] Dove MD ([id number]) on 08/05/2021 11:58:42 AM [facility] K[facility] Right Wo Cont"
[2023-03-18 15:44] LABS: Specific Gravity 1.021 (1.005-1.030); Urine Bacteria None Seen /HPF (<20); Urine Bilirubin NEGATIVE (Negative); Urine Blood Negative (Negative); Urine Clarity Clear (Clear); Urine Color Yellow (Yellow); Urine Crystals Unidentified Few /HPF (None Seen); Urine Glucose NEGATIVE (Negative); Urine Mucus Slight /HPF (None Seen); Urine Protein TRACE (Negative); Urine Urobilinogen Normal (Normal); Urine pH 5.5 (5.0-7.0)
[2023-03-18 15:50] LABS: Absolute Lymphocytes (CBC) 0.9 K/uL (0.7-4.9); Hematocrit 38.1 % (39.6-49.0); Lymphocytes % 8.9 % (15.3-44.8); MCV 88.6 fL (80-100); MPV 9.1 fL (7.6-11.3); Platelets 212 thou/uL (152-406)
--- NOTE | 2023-03-18 16:24 | RAD REPORT ---
EXAM DESCRIPTION: CT - Stone Protocol - 03/18/2023 2:51 pm CLINICAL HISTORY: difficulty urinating COMPARISON: Stone Protocol dated 02/07/2022 TECHNIQUE: Thin cut axial CT imaging of the abdomen and pelvis was performed without IV contrast. Mu ltiplanar reformats were generated and reviewed. All CT scans are performed using dose optimization technique as appropriate and may include automated exposure control or mA/KV adjustment according to patient size. FINDINGS: No suspicious findings in the lung bases. The liver, spleen, adrenal glands, and pancreas show no suspicious findings. Gallbladder was surgical ly removed. Stable left renal hypoattenuating cortical lesions, largest at the lower pole measuring 4.3 cm, not w ell characterized, suggestive of cysts. Symmetric renal contour, without other suspicious parenchyma l findings within limits of noncontrast technique. No evidence of radiopaque calculi. No hydrouretero nephrosis, although there is mild fat stranding along the mid segment of the left ureter. No dilated bowel loops or bowel wall thickening. No free air, free fluid or inflammatory stranding. S mall umbilical hernia containing fat. No Mass or bulky lymphadenopathy. The urinary bladder is marked ly distended, without significant finding. Mild prostatomegaly. No suspicious bony findings. IMPRESSION: Mild fat stranding along the mid aspect of the left ureter, nonspecific, and could relat e to a recently passed stone or sequelae of ongoing infection. Markedly distended urinary bladder. No hydroureteronephrosis or radiopaque calculi.
--- NOTE | 2023-03-18 16:51 | ER ---
Nurse's Notes [facility] Name: Aravind Tyler Age: 62 yrs Sex: Male : 1960 Arrival Date: 03/18/2023 Time: 14:12 Bed 17 Private MD: Diagnosis: Retention of urine, unspecified;Rash and other nonspecific skin eruption Presentation: 03/18 14:29 Chief complaint: Patient states: he had recent surgeries on his right hand, and since ap3 the sx he has had difficulty urinating. Coronavirus screen: At this time, the client does not indicate any symptoms associated with coronavirus-19. Ebola Screen: No symptoms or risks identified at this time. Onset: The symptoms/episode began/occurred gradually. Anaphylaxis evaluation, no signs or symptoms of anaphylaxis were noted. Initial Sepsis Screen: Does the patient meet any 2 criteria? No. Patient's initial sepsis screen is negative. Does the patient have a suspected source of infection? No. Patient's initial sepsis screen is negative. Risk Assessment: Do you want to hurt yourself or someone else? Patient reports no desire to harm self or others. Onset of symptoms was March 15, 2023. 14:29 Method Of Arrival: Ambulatory ap3 14:29 Acuity: TED 3 ap3 Triage Assessment: 14:31 General: Appears in no apparent distress. Behavior is calm, cooperative, appropriate ap3 for age. Pain: Complains of pain in suprapubic area and right hand Pain currently is 7 out of 10 on a pain scale. Neuro: Level of Consciousness is awake, alert, obeys commands, Oriented to person, place, time, situation. Respiratory: Airway is patent Respiratory effort is even, unlabored, Respiratory pattern is regular, symmetrical. : Reports inability to void. Derm: Rash noted that is on face. Historical: - Allergies: 14:31 Dilaudid; ap3 - PMHx: 14:31 Back injury; Hypercholesterolemia; Hypertensive disorder; Kidney stone; ap3 - PSHx: 14:31 back; Cholecystectomy; Cholecystectomy; hernia; knee; Shoulder; ap3 - Immunization history:: Client reports receiving the 2nd dose of the Covid vaccine. - Social history:: Smoking status: Patient denies any tobacco usage or history of. Screenin:32 Abuse screen: Denies threats or abuse. Nutritional screening: No deficits noted. ap3 Tuberculosis screening: No symptoms or risk factors identified. 14:45 [facility] ED Fall Risk Assessment (Adult) Score/Fall Risk Level 0 - 2 = Low Risk nj1 Oriented to surroundings, Maintained a safe environment, Hourly rounding (assess needs \T\ fall precautionary measures) done. Assessment: 14:45 Reassessment: See triage assessment. nj1 16:05 Reassessment: Patient appears in no apparent distress at this time. Patient and/or nj1 family updated on plan of care and expected duration. Pain level reassessed. Patient is alert, oriented x 3, equal unlabored respirations, skin warm/dry/pink. Patient states feeling better. Patient states symptoms have improved. Vital Signs: 14:29 Pulse 78; Resp 19; Pulse Ox 97% ; Weight 136.08 kg; Pain 7/10; ap3 14:32 BP 180 / 95; ap3 15:35 BP 147 / 72; Pulse 72; Resp 18; Pulse Ox 96% on R/A; nj1 16:30 BP 145 / 69; Pulse 69; Resp 18; Pulse Ox 100% on R/A; nj1 17:30 BP 148 / 48; Pulse 73; Resp 16; Pulse Ox 100% on R/A; nj1 14:29 Pain Scale: Adult ap3 ED Course: 14:15 Patient arrived in ED. mg5 14:20 Fanny Lara FNP-C is PHCP. kb 14:20 Hood Batista MD is Attending Physician. kb 14:31 Triage completed. ap3 14:33 Arm band placed on left wrist. ap3 14:37 Leora Smith, CHAIM is Primary Nurse. nj1 14:45 Patient has correct armband on for positive identification. Bed in low position. Call nj1 light in reach. Provided Education on: call light, fall precautions. 14:51 CT Stone Protocol In Process Unspecified. EDMS 15:25 Cervantes cath inserted, using sterile technique, 16 Fr., by sc, balloon inflated, to nj1 gravity drainage, urine specimen collected. 15:30 Clamped. nj1 15:34 No provider procedures requiring assistance completed. nj1 16:06 Unclamped, see I\T\O documentation. nj1 18:00 Bag changed to leg bag. nj1 18:00 Patient did not have IV access during this emergency room visit. nj1 Administered Medications: No medications were administered Medication: 16:07 VIS not applicable for this client. nj1 Output: 16:06 Urine: 1100ml (Cervantes); Total: 1100ml. nj1 18:00 Urine: 850ml (Cervantes); Total: 1950ml. nj1 Outcome: 16:50 Discharge ordered by . hortensia 18:00 Discharged to home ambulatory, nj1 18:00 Condition: stable 18:00 Discharge instructions given to patient, Instructed on discharge instructions, follow up and referral plans. medication usage, Demonstrated understanding of instructions, follow-up care, medications, Prescriptions given X 1, 18:13 Patient left the ED. nj1 Signatures: Dispatcher [employer] EDMS Fanny Lara, IRENE SHINP-Mishel Casey RN RN ap3 Leora Smith RN RN nj1 Serena Thorpe 5
--- NOTE | 2023-03-18 16:51 | EDPHYS ---
Physician Documentation [facility] Name: Aravind Tyler Age: 62 yrs Sex: Male : 1960 Arrival Date: 03/18/2023 Time: 14:12 Bed 17 Private MD: ED Physician Hood Batista HPI: 03/18 16:53 This 62 yrs old Male presents to ER via Ambulatory with complaints of Urinary Problem, kb Allergic Reaction. 16:53 The patient presents with urinary symptoms, retention. Onset: The symptoms/episode kb began/occurred 3 day(s) ago, and became worse. Modifying factors: The symptoms are alleviated by nothing, the symptoms are aggravated by nothing. Associated signs and symptoms: The patient has no apparent associated signs or symptoms. Severity of symptoms: At their worst the symptoms were moderate, in the emergency department the symptoms are unchanged. The patient has not experienced similar symptoms in the past. The patient has been recently seen by a physician:. Pt reports he had surgery on and has been having increasing difficulty urinating since then. STates he is only able to get about 5mls out each time he has tried to urinate today. Reports pain and pressure to bladder at this time. Also reports rash to face that he believes is due to one of the antibiotics he is on, but not sure which one. . Historical: - Allergies: 14:31 Dilaudid; ap3 - PMHx: 14:31 Back injury; Hypercholesterolemia; Hypertensive disorder; Kidney stone; ap3 - PSHx: 14:31 back; Cholecystectomy; Cholecystectomy; hernia; knee; Shoulder; ap3 - Immunization history:: Client reports receiving the 2nd dose of the Covid vaccine. - Social history:: Smoking status: Patient denies any tobacco usage or history of. ROS: 16:42 Constitutional: Negative for fever, chills, and weight loss, kb 16:42 : Positive for difficulty urinating, 16:42 Skin: Positive for rash, of the face, 16:42 All other systems are negative, Exam: 16:42 Constitutional: This is a well developed, well nourished patient who is awake, alert, kb and in no acute distress. Head/Face: Normocephalic, atraumatic. ENT: Moist Mucous membranes Cardiovascular: Regular rate Respiratory: Respirations even and unlabored. No increased work of breathing. Talking in full sentences MS/ Extremity: Pulses equal, no cyanosis. Neurovascular intact. Full, normal range of motion. Neuro: Awake and alert, GCS 15, oriented to person, place, time, and situation. Moves all extremities. Normal gait. 16:42 Abdomen/GI: Inspection: abdomen appears normal, Bowel sounds: normal, Palpation: soft, in all quadrants, mild abdominal tenderness, moderate abdominal tenderness, in the suprapubic area, 16:42 Skin: rash a mild rash is noted, rash can be described as erythematous, on the face, Vital Signs: 14:29 Pulse 78; Resp 19; Pulse Ox 97% ; Weight 136.08 kg; Pain 7/10; ap3 14:32 BP 180 / 95; ap3 15:35 BP 147 / 72; Pulse 72; Resp 18; Pulse Ox 96% on R/A; nj1 16:30 BP 145 / 69; Pulse 69; Resp 18; Pulse Ox 100% on R/A; nj1 17:30 BP 148 / 48; Pulse 73; Resp 16; Pulse Ox 100% on R/A; nj1 14:29 Pain Scale: Adult ap3 MDM: 14:20 Patient medically screened. kb 16:41 Differential diagnosis: uti, prostatomegaly, urinary retention, kidney stone. Data kb reviewed: vital signs, nurses notes. Counseling: I had a detailed discussion with the patient and/or guardian regarding the historical points, exam findings, and any diagnostic results supporting the discharge/admit diagnosis, lab results, radiology results, the need for outpatient follow up, a urologist, to return to the emergency department if symptoms worsen or persist or if there are any questions or concerns that arise at home. ED course: Pt is feeling much better. Ready to go home. Educated on home catheter care and need for follow up with urology. Verbal understanding received. Pt is on 2 antibiotics. . 03/18 14:32 Order name: CBC with Diff; Complete Time: 15:53 kb 03/18 14:32 Order name: Basic Metabolic Panel; Complete Time: 15:57 kb 03/18 14:32 Order name: Urinalysis w/ reflexes; Complete Time: 15:44 kb 03/18 14:32 Order name: CT Stone Protocol; Complete Time: 16:26 kb 03/18 14:32 Order name: Cervantes; Complete Time: 15:32 kb Administered Medications: No medications were administered Disposition Summary: 03/18/23 16:50 Discharge Ordered Notes: Location: Home kb Condition: Stable kb Diagnosis - Retention of urine, unspecified kb - Rash and other nonspecific skin eruption kb Followup: kb - With: Emergency Department - When: As needed - Reason: Worsening of condition Followup: kb - With: Private Physician - When: 2 - 3 days - Reason: Recheck today's complaints, Continuance of care, Re-evaluation by your physician Discharge Instructions: - Discharge Summary Sheet kb - Acute Urinary Retention, Male, Ykkl-[id number]-Dlms kb - Rash, Adult, [id number]-vg-[id number] kb - Indwelling Urinary Catheter Insertion at Home, Male kb Forms: - Medication Reconciliation Form kb - Thank You Letter kb - Antibiotic Education kb - Prescription Opioid Use kb - Patient Portal Instructions kb - Leadership Thank You Letter kb Prescriptions: - Pepcid 20 mg Oral Tablet - take 1 tablet ORAL route every 12 hours for 5 days; 10 tablet; Refills: 0, kb Product Selection Permitted Signatures: Dispatcher [employer] Fanny Lewis, Mishel Swanson, RN RN ap3
[2023-03-18 18:47] VITALS: O2SAT 100
[2023-03-18 18:48] VITALS: BP 148/48
== END 2023-03-18 18:13 | disposition home or self-care (01) ==
LOC: ER 14:12
DX: R33.9 Retention of urine, unspecified (principal); R21 Rash and other nonspecific skin eruption; Z88.5 Allergy status to narcotic agent
CPT/HCPCS: 36415; 51702; 74176; 76377; 80048; 81001; 85025; 99284

== ENCOUNTER 2023-03-25 19:09 | Emergency (ER) | payer OTHER ==
--- OUTSIDE RECORDS SUMMARY | 2023-03-25 19:12 | XMS REPORT | Continuity of Care Document ---
:1960 Author Organization [facility] t Address [address] [place] [address] [address] [place] [address] Care Team Providers Name Role Phone Missy Fernandez Primary Care Physician Missy Fernandez Attending Clinician Unavailable Clifford Mckeon Attending Clinician Unavailable Doctor Unassigned, [place] Attending Clinician Unavailable MAURICIO MIGUEL Attending Clinician Unavailable Elinor Irby DO Attending Clinician Mauricio Miguel MD Attending Clinician Su Wasserman RN Attending Clinician Unavailable Tonia Irby MD Attending Clinician Missy Fernandez Admitting Clinician Unavailable ELINOR IRBY Admitting Clinician Unavailable TONIA IRBY Admitting Clinician Unavailable Payers Payer Name Policy Type Policy Number Effective Date Expiration Date Amee LUKE [id number] 2022 00:00:00 Problems Condition Condition Condition Status Onset Resolution Last Treating Co mments Source Name Details Category Date Date Treatment Clinician Date Gastroesop Gastroesop Disease Active 2022-0 M ethodi hageal hageal 3 st reflux reflux 00:00: Hospita disease disease 00 l without without esophagiti esophagiti s s Chest pain Chest pain Disease Active M ethodi [facility] st 00:00: Hospita 00 l PTSD PTSD Disease Active Methodi (post-trau (post-trau 08-04 st matic matic 00:00: Hospita stress stress 00 l disorder) disorder) Neuropathy Neuropathy Disease Active M ethodi [address] st 00:00: Hospita 00 l [id number] Derangemen Problem C ommon [id number] t of right Spiri t knee - [facility] [id number] History of Problem C ommon Helicobact Spirit er - CH[facility] infection [facility] [id number] Body mass Problem Com mon index Spirit [BMI] - CH[facility] 40.0-44.9, [facility] [id number] Morbid Problem Commo n 9104 (severe) Spirit obesity - [facility] due to [facility] Continuous CPAP Problem Commo n positive (continuou Spir it airway s positive - CHI pressure airway St ventilatio pressure) Alexa es n dependence Medica l [facility] [id number] Nausea Problem Common Spirit [facility] [id number] Memory Problem Common changes [facility] [id number] Primary Problem Comm on osteoarthr Spirit itis of - CHI right knee [facility] [id number] [place], [place] [address] joint, Spirit knee, - [facility] right [facility] [id number] Other tear Problem Co mmon of medial Spirit meniscus - CHI of right St knee as [facility] current Medical injury, Center initial encounter [id number] Coronary Problem Commo n artery Spirit disease - [facility] involving [facility] coronary Medical artery of Center [employer] [place] heart without angina pectoris [id number] Gastric Problem Commo n ulcer, Spirit unspecifie - CHI d as acute or [facility] chronic, Medical without Center hemorrhage or perforatio n [id number] Current Problem Common moderate Spirit episode of - CHI major depressive [facility] disorder Medical without Center prior episode [id number] Pure Problem Common hyperchole Spirit sterolemia - [facility] [id number] Anxiety Problem Common Spirit - [facility] [id number] YEIMI Problem Common (obstructi Spirit ve sleep - CHI apnea) [facility] [id number] Gastroesop Problem Co mmon hageal Spirit reflux - CHI disease [facility] esophagiti Medica l s without Center hemorrhage Allergies, Adverse Reactions, Alerts Allergy Allergy Status Severity Reaction(s) Onset Inactive Treating Comm ents Source Name Type Date Date Clinician clindamy DA Active [facility]: 00 hydromor DA Active SV Difficulty 2022-06 [facility] m phone Breathing 0-19 00:00: 00 clindamy DA Active SV Hives 2022-06 [facility] ann 0-16 00:00: 00 hydromor DA Active SV Difficulty 2022-06 [facility] m phone Breathing 0-12 00:00: 00 Hydromor Propensi Active Other - See U nivers phone ty to comments 2- ity of (Pf) adverse 00:00: [place] reaction 00 [facility] HYDROMOR DRUG Active Other-Cmnt Univ ers PHONE 2-01 ity of (PF) 00:00: [place] 00 [facility] Branch Hydromor Propensi Active Anaphylaxis M ethodi phone ty to 3-05 st adverse 00:00: Hospita reaction 00 l s to drug NO KNOWN Drug Active Univers ALLERGIE Class ity of [facility] [address] Drug Active Unknown Common allergy [facility] hydromor hydromor Active Unknown Commo n phone phone [facility] Social History Social Habit Start Date Stop Date Quantity Comments Source History of Tobacco Common Spirit - CHI Use [facility] Sexual orientation Method [facility] Exposure to 2022-06-23 2022-07-03 Not sure [facility] SARS-CoV-2 (event) 00:00:00 14:17:00 Medica l Branch History of Social 2021-08-06 2021-08-[facility] 00:[facility] 00:00:00 Sex Assigned At [address] [facility] 00:00:00 00:00:00 Smoking Status Start Date Stop Date Source Tobacco smoking consumption Meth [facility] unknown Never Smoker Common [facility] Medications Ordered Filled Start Stop Current Ordering Indication Dosage Frequency Signature Comments Components Source Medication Medication Date Date Medication? Clinician (SIG) Name Name iopamidol 2022- No [id number] 79mL 79 mL, Univers (ISOVUE 07-03 Intravenou ity o f 370-500 mL) 23:15: 23:15 s, ONCE, 1 [place] injection 00 :00 dose, On Medica l 79 mL 07/03/22 Branch at 1715, Routine ketorolac 2022- No 30mg 30 mg, Unive rs (TORADOL) 07-03 Slow IV ity of injection 23:00: 22:01 Push, [place] 30 mg 00 :00 ONCE, 1 Medical dose, On Branch Fri07/03/22 at 1700, Routine NaCl 0.9% 2022- No 1000mL at 999 Uni vers (NS) bolus 07-03 mL/hr, ity of infusion 21:45: 01:57 1,000 mL, Dami as 1,000 mL 00 :00 IV Medical Infusion, Branch ONCE, 1 dose, On Fri07/03/22 at 1545, NICK dexamethaso 2022- No 10mg 10 mg, Uni vers ne sod phos 07-03 Slow IV ity of PF 21:00: 21:55 Push, [place] injection 00 :00 ONCE, 1 Medical 10 mg dose, On Branch 07/03/22 at 1500, 1 mL diphenhydrA 2022- No 50mg 50 mg, Uni vers MINE 07-03 Slow IV ity of (BENADRYL) 21:00: 21:57 Push, [place] injection 00 :00 ONCE, 1 Medical 50 mg dose, On Branch Fri07/03/22 at 1500, STAT metoclopram 2022- No 10mg 10 mg, Uni vers gabrielle HCl 07-03 Slow IV ity of (REGLAN) 21:00: 21:52 Push, [place] injection 00 :00 ONCE, 1 Medical 10 mg dose, On Branch Fri07/03/22 at 1500, NICK butalbital- 2022-0 Yes [id number] 1{tbl} Take 1 Univers acetaminoph 07-03 tablet by ity of en-caff 00:00: mouth [place] 50-325-40 00 every 6 Medical mg tablet (six) Branch hours as needed (Headache) . butalbital- 3-0 Yes [id number] 1{tbl} Take 1 Univers acetaminoph 2-01 tablet by ity of en-caff 00:00: mouth [place] 50-325-40 00 every 6 Medical mg tablet (six) Branch hours as needed (Headache) . Lidocaine Lidocaine 3-0 No 10mg Com 06-13 Spirit 00:00: - [facility] Kenalog Kenalog 3-0 No 40mg Common (Triamcinol (Triamcinol 1-12 S pirit one) one) 00:00: - [facility] Lidocaine Lidocaine 3-0 No 10mg Com 06-13 Spirit 00:00: - CHI 00 [facility] Kenalog Kenalog 3-0 No 40mg Common (Triamcinol (Triamcinol 1-12 S pirit one) one) 00:00: - [facility] Lidocaine Lidocaine 3-0 No 10mg Com 06-13 Spirit 00:00: - CHI 00 [facility] Kenalog Kenalog 3-0 No 40mg Common (Triamcinol (Triamcinol 1-12 S pirit one) one) 00:00: - CHI 00 [facility] Lidocaine Lidocaine 3-0 No 10mg Com 06-13 Spirit 00:00: - [facility] Kenalog Kenalog 3-0 No 40mg Common (Triamcinol (Triamcinol 1-12 S pirit one) one) 00:00: - [facility] Lidocaine Lidocaine 3-0 No 10mg Com 06-13 Spirit 00:00: - [facility] Kenalog Kenalog 3-0 No 40mg Common (Triamcinol (Triamcinol 1-12 S pirit one) one) 00:00: - [facility] Meloxicam Meloxicam 2023-0 2023- No 1{table QD Meloxicam 7.5 MG 7.5 MG 06-13 t} 7.5 MG 00:00: 00:00 00 :00 Meloxicam Meloxicam 2023-0 2023- No 1{table QD Meloxicam 7.5 MG 7.5 MG 06-13 t} 7.5 MG 00:00: 00:00 00 :00 Meloxicam Meloxicam 3-0 3- No 1{table QD Meloxicam 7.5 MG 7.5 MG 06-13 t} 7.5 MG 00:00: 00:00 00 :00 gabapentin 2022-0 Yes 800mg Q.[id number] Take 800 Methodi (NEURONTIN) 3-09 [id number] mg by s t 800 mg 09:10: [...] Hospita enteric 05 l coated tablet gabapentin 2022-0 Yes 800mg Q.[id number] Take 800 Methodi (NEURONTIN) 3-09 [id number] mg by s t 800 mg 09:10: [...] Hospita enteric 05 l coated tablet gabapentin 2022-0 Yes 800mg Q.[id number] Take 800 Methodi (NEURONTIN) 3-09 [id number] mg by s t 800 mg 09:10: [...] l coated tablet gabapentin 2-0 Yes 800mg Q.[id number] Take 800 Methodi (NEURONTIN) - [id number] mg by s t 800 mg 09:10: 3D mouth 3 Hospita tablet 05 (three) l times a day. omeprazole 2-0 Yes 20mg Q.5D Take 20 mg M ethodi (PriLOSEC) 3-[address] 20 MG 09:10: (two) Hospita capsule 05 times a l day. FLUoxetine 2-0 Yes 40mg QD Take 40 mg M ethodi (PROzac) 40 -[address] MG capsule 09:10: daily. [...] Acetate % % fected_ 1 % eye} FLUoxetine FLUoxetine No 1{capsu QID FLUoxetine HCl 20 MG HCl 20 MG le} HCl 20 MG Omeprazole Omeprazole No QD Omeprazole 20 MG 20 MG 20 MG Cetirizine Cetirizine No 1{table QD Cetirizine HCl 10 MG HCl 10 MG t} HCl 10 MG amLODIPine amLODIPine No 1{table QD amLODIPine Besylate 5 Besylate 5 t} Besylate 5 MG MG MG Aspirin 81 Aspirin 81 No 1{table QD Aspirin 81 MG MG t} MG lamoTRIgine lamoTRIgine No 1{table lamoTRIgin 25 MG 25 MG t} e 25 MG Gabapentin Gabapentin No 1{capsu TID Gabapentin 400 MG 400 MG le} 400 MG Ranolazine Ranolazine No 1{table BID Ranolazine ER 500 MG ER 500 MG t} ER 500 MG Atorvastati Atorvastati No 1{table QD Atorvastat n Calcium n Calcium t} in Calcium 80 MG 80 MG 80 MG prednisoLON prednisoLON No 1{drop_ BID prednisoLO E Acetate 1 E Acetate 1 into_af NE Acetate % % fected_ 1 % eye} hydrOXYzine hydrOXYzine No 1{table QD hydrOXYzin HCl 25 MG HCl 25 MG t_at_be e HCl 25 dtime_a MG s_neede d} Atorvastati Atorvastati No 1{table QD Atorvastat n Calcium n Calcium t} in Calcium 80 MG 80 MG 80 MG Nitroglycer Nitroglycer No Nitroglyce in 0.4 MG in 0.4 MG rin 0.4 MG Cetirizine Cetirizine No 1{table QD Cetirizine HCl 10 MG HCl 10 MG t} HCl 10 MG FLUoxetine FLUoxetine No 1{capsu QID FLUoxetine HCl 20 MG HCl 20 MG le} HCl 20 MG Omeprazole Omeprazole No QD Omeprazole 20 MG 20 MG 20 MG Cetirizine Cetirizine No 1{table QD Cetirizine HCl 10 MG HCl 10 MG t} HCl 10 MG amLODIPine amLODIPine No 1{table QD amLODIPine Besylate 5 Besylate 5 t} Besylate 5 MG MG MG Aspirin 81 Aspirin 81 No 1{table QD Aspirin 81 MG MG t} MG FLUoxetine FLUoxetine No 1{capsu QID FLUoxetine HCl 20 MG HCl 20 MG le} HCl 20 MG lamoTRIgine lamoTRIgine No 1{table lamoTRIgin 25 MG 25 MG t} e 25 MG Gabapentin Gabapentin No 1{capsu TID Gabapentin 400 MG 400 MG le} 400 MG Ranolazine Ranolazine No 1{table BID Ranolazine ER 500 MG ER 500 MG t} ER 500 MG prednisoLON prednisoLON No 1{drop_ BID prednisoLO E Acetate 1 E Acetate 1 into_af NE Acetate % % fected_ 1 % eye} hydrOXYzine hydrOXYzine No 1{table QD hydrOXYzin HCl 25 MG HCl 25 MG t_at_be e HCl 25 dtime_a MG s_neede d} Atorvastati Atorvastati No 1{table QD Atorvastat n Calcium n Calcium t} in Calcium 80 MG 80 MG 80 MG Nitroglycer Nitroglycer No Nitroglyce in 0.4 MG in 0.4 MG rin 0.4 MG Gabapentin Gabapentin No 1{capsu TID Gabapentin [...] Name Observation Time Observation Value Comments Source height 2022-07-15 08:20:00 70 [in_i] Common [facility] weight 2022-07-15 08:20:00 299.6 [lb_av] Common [facility] temperature 2022-07-15 08:20:00 98.6 [degF] Common [facility] bmi 2022-07-15 08:20:00 42.98 kg/m2 Common S [facility] blood pressure 2022-07-15 08:20:00 138 mm[Hg] Common [facility] - systolic [facility] blood pressure 2022-07-15 08:20:00 84 mm[Hg] Common [facility] - diastolic [facility] height 2022-07-15 08:00:00 70 [in_i] [facility] weight 2022-07-15 08:00:00 299.6 [lb_av] [facility] temperature 2022-07-15 08:00:00 98.6 [degF] [facility] bmi 2022-07-15 08:00:00 42.98 kg/m2 [facility] oximetry 2022-07-15 08:00:00 96 % [facility] respiratory rate 2022-07-15 08:00:00 18 /min Comm on [facility] blood pressure 2022-07-15 08:00:00 138 mm[Hg] [facility] - systolic [facility] blood pressure 2022-07-15 08:00:00 84 mm[Hg] Common [facility] diastolic [facility] Systolic blood 2022-07-04 00:30:00 147 mm[Hg] [facility] Diastolic blood 2022-07-04 00:30:00 89 mm[Hg] Unive [facility] Heart rate 2022-07-04 00:30:00 54 /[facility] Respiratory rate 2022-07-04 00:30:00 10 /min [facility] Oxygen saturation in 2022-07-04 00:30:00 95 /min [facility] Arterial blood by [facility] Pulse oximetry Branch Body temperature 2022-07-03 20:19:00 37.28 Chanel [facility] Body height 2022-07-03 20:19:00 185.4 cm [facility] Body weight 2022-07-03 20:19:00 131.543 kg [facility] BMI 2022-07-03 20:19:00 38.26 kg/m2 [facility] height 2022-06-13 09:30:00 70 [in_i] Common [facility] weight 2022-06-13 09:30:00 301 [lb_av] Common S [facility] temperature 2022-06-13 09:30:00 97.3 [degF] Common [facility] bmi 2022-06-13 09:30:00 43.18 kg/m2 [facility] blood pressure 2022-06-13 09:30:00 137 mm[Hg] Common [facility] - systolic [facility] blood pressure 2022-06-13 09:30:00 89 mm[Hg] Common Spirit - diastolic [facility] height 2022-05-15 09:00:00 70 [in_i] Common [facility] weight 2022-05-15 09:00:00 301.2 [lb_av] [facility] temperature 2022-05-15 09:00:00 97.6 [degF] Common [facility] bmi 2022-05-15 09:00:00 43.21 kg/m2 [facility] oximetry 2022-05-15 09:00:00 97 % [facility] respiratory rate 2022-05-15 09:00:00 17 /min Comm on [facility] blood pressure 2022-05-15 09:00:00 132 mm[Hg] Common Spirit - systolic [facility] blood pressure 2022-05-15 09:00:00 80 mm[Hg] Common [facility] - diastolic [facility] Systolic blood 2021-08-07 13:30:31 153 mm[Hg] [facility] pressure Diastolic blood 2021-08-07 13:30:31 78 mm[Hg] [facility] pressure Heart rate 2021-08-07 13:30:31 60 /min [facility] Body temperature 2021-08-07 13:30:31 36.33 Chanel [facility] Respiratory rate 2021-08-07 13:30:31 17 /min [facility] Oxygen saturation in 2021-08-07 13:30:31 96 /min [facility] Arterial blood by Pulse oximetry Body weight 2021-08-07 09:57:[address] [facility] BMI 2021-08-07 09:57:07 42.46 kg/m2 [facility] Body height 2021-08-05 15:30:[address] [facility] Procedures Procedure Date / Time Performing Clinician Source Performed AUTHORIZATION FOR 2023-02-04 05:01:00 Doctor Unassigned, No [facility] HEAD WO CONTRAST 2022-07-03 22:17:04 Elinor Irby [facility] COMP. METABOLIC PANEL 2022-07-03 21:49:00 Elinor Irby [facility] ([id number]) [facility] CBC WITH DIFF 2022-07-03 21:49:00 Elinor Irby [facility] CONSENT/REFUSAL FOR 2022-07-03 20:11:43 [facility]igned, [facility] NOTICE OF PRIVACY 2022-07-03 20:09:24 [facility] HC COMPLETE BLD COUNT 2021-08-07 11:29:00 [place] [facility] W/AUTO DIFF BASIC METABOLIC PANEL 2021-08-07 11:29:00 [facility] ESTIMATED GFR 2021-08-07 11:29:00 [facility] HC COMPLETE BLD COUNT 2021-08-06 11:33:00 [facility] W/AUTO DIFF BASIC METABOLIC PANEL 2021-08-06 11:33:00 [facility] ESTIMATED GFR 2021-08-06 11:33:00 [facility] NM MYOCARDIAL PERFUSION 2021-08-05 21:36:26 [facility] STRESS REST 1 DAY CV STRESS TEST NUCLEAR 2021-08-05 17:50:[address] [facility] CARDIO CV SPECT CA SC TECH ONLY 2021-08-05 16:48:00 [facility] ORDER TTE COMPLETE, W 2021-08-05 16:00:00 [facility] CONTRAST, W DOPPLER ([id number]) TROPONIN T 2021-08-05 15:45:00 [facility] HC COMPLETE BLD COUNT 2021-08-05 10:35:00 [facility] W/AUTO DIFF BASIC METABOLIC PANEL 2021-08-05 10:35:00 [facility] LIPID PANEL 2021-08-05 10:35:00 [facility] ESTIMATED GFR 2021-08-05 10:35:00 [facility] ECG 12-LEAD 2021-08-05 08:44:31 [facility] COVID-19 ANTI-SPIKE IGG 2021-08-05 05:37:00 [facility] ANTIBODY TITER COVID-19 SEROLOGY 2021-08-05 05:37:00 [facility] PATIENT SURVEILLANCE HEMOGLOBIN A1C 2021-08-05 05:37:00 [facility] THYROID STIMULATING 2021-08-05 05:37:00 [facility] HORMONE T4, FREE 2021-08-05 05:37:00 [facility] TROPONIN T 2021-08-05 05:37:00 [facility] Plan of Care Planned Activity Planned Date Details Comments Source Future Scheduled 2023-03-19 Screening for [facility] Test 14:30:41 malignant neoplasm of colon (procedure) [code = 458131404] Future Scheduled 2023-03-19 Screening for [facility] [place] [facility] Test 14:30:41 malignant neoplasm of colon (procedure) [code = 795883701] Future Scheduled 2023-03-19 Screening for [facility] [place] [facility] Test 14:30:41 malignant neoplasm of colon (procedure) [code = 734394204] Future Scheduled 2023-03-19 COVID-19 VACCINE (#1) [facility] Test 14:30:41 [code = COVID-19 VACCINE (#1)] Future Scheduled 2023-03-19 Hepatitis C screening [facility] Test 14:30:41 (procedure) [code = 744087305] Future Scheduled 2023-03-19 [facility] Test 14:30:41 malignant neoplasm of colon (procedure) [code = 754117173] Future Scheduled 2023-03-19 [facility] Test 14:30:41 malignant neoplasm of colon (procedure) [code = 550954313] Future Scheduled 2023-03-19 SHINGLES VACCINES ([address] [facility] Test 14:30:41 of 2) [code = SHINGLES VACCINES (1 of 2)] Future Scheduled 2023-03-19 RSV VACCINES > [address] [facility] Test 14:30:41 (1 - 1-dose 60+ series) [code = RSV VACCINES > 60 YR (1 - 1-dose 60+ series)] Future Scheduled 2023-03-19 INFLUENZA VACCINE Method t Hospital Test 14:30:41 (#1) [code = INFLUENZA VACCINE (#1)] Future Scheduled 2023-03-18 [facility] Test 15:03:08 malignant neoplasm of colon (procedure) [code = 539110302] Future Scheduled 2023-03-18 [facility] Test 15:03:08 malignant neoplasm of colon (procedure) [code = 450111153] Future Scheduled 2023-03-18 [facility] Test 15:03:08 malignant neoplasm of colon (procedure) [code = 645571294] Future Scheduled 2023-03-18 COVID-19 VACCINE (#1) [facility] Test 15:03:08 [code = COVID-19 VACCINE (#1)] Future Scheduled 2023-03-18 Hepatitis C screening [facility] Test 15:03:08 (procedure) [code = 279103833] Future Scheduled 2023-03-18 [facility] Test 15:03:08 malignant neoplasm of colon (procedure) [code = 655613854] Future Scheduled 2023-03-18 [facility] Test 15:03:08 malignant neoplasm of colon (procedure) [code = 410483207] Future Scheduled 2023-03-18 SHINGLES VACCINES (1 Met [facility] Test 15:03:08 of 2) [code = SHINGLES VACCINES (1 of 2)] Future Scheduled 2023-03-18 RSV VACCINES > 60 YR [facility] Test 15:03:08 (1 - 1-dose 60+ series) [code = RSV VACCINES > 60 YR (1 - 1-dose 60+ series)] Future Scheduled 2023-03-18 INFLUENZA VACCINE Method [facility] Test 15:03:08 (#1) [code = INFLUENZA VACCINE (#1)] Future Scheduled 2023-02-07 Screening for [facility] Test 07:40:14 malignant neoplasm of colon (procedure) [code = 354967144] Future Scheduled 2023-02-07 Screening for [facility] [place] [facility] Test 07:40:14 malignant neoplasm of colon (procedure) [code = 973475488] Future Scheduled 2023-02-07 Screening for [facility] Test 07:40:14 malignant neoplasm of colon (procedure) [code = 383506360] Future Scheduled 2023-02-07 COVID-19 VACCINE (#1) [facility] Hospital Test 07:40:14 [code = COVID-19 VACCINE (#1)] Future Scheduled 2023-02-07 Hepatitis C screening [facility] Test 07:40:14 (procedure) [code = 531441647] Future Scheduled 2023-02-07 Screening for [facility] [place] [facility] Test 07:40:14 malignant neoplasm of colon (procedure) [code = 115790839] Future Scheduled 2023-02-07 Screening for [facility] Test 07:40:14 malignant neoplasm of colon (procedure) [code = 210647286] Future Scheduled 2023-02-07 SHINGLES VACCINES ([address] [facility] Test 07:40:14 of 2) [code = SHINGLES VACCINES (1 of 2)] Future Scheduled 2023-02-07 INFLUENZA VACCINE Method [facility] Test 07:40:14 (#1) [code = INFLUENZA VACCINE (#1)] Future Scheduled 2022-02-03 HEPATITIS B VACCINES [facility] Test 06:47:48 (1 of 3 - 3-dose series) [code = HEPATITIS B VACCINES (1 of 3 - 3-dose series)] Future Scheduled 2022-02-03 COVID-19 VACCINE (#1) [facility] Test 06:47:48 [code = COVID-19 VACCINE (#1)] Future Scheduled 2022-02-03 Hepatitis C screening [facility] Test 06:47:48 (procedure) [code = 501160747] Future Scheduled 2022-02-03 COLONOSCOPY SCREENING [facility] Test 06:47:48 [code = COLONOSCOPY SCREENING] Future Scheduled 2022-02-03 SHINGLES VACCINES ([address] [facility] Test 06:47:48 of 2) [code = SHINGLES VACCINES (1 of 2)] Future Scheduled 2022-02-03 INFLUENZA VACCINE Method is Hospital Test 06:47:48 [code = INFLUENZA VACCINE] Encounters Start End Encounter Admission Attending Care Care Encounter Source Date/Time Date/Time Type Type Clinicians Facility Department ID 2023-03-19 Outpatient [place], [facility] [id number] Common 14:19:00 Missy [id number] [facility] 2022-07-12 Outpatient [place], [facility] [id number] Common 12:11:00 Missy [id number] [facility] 2022-07-10 Outpatient [place], [facility] [id number] Common 13:19:02 Missy [id number] [facility] 2022-06-17 Outpatient [place], [facility] [id number] Common 11:51:01 Missy [id number] [facility] 2022-06-13 Outpatient [place], [facility] [id number] Common 11:15:03 Missy [id number] [facility] 2022-05-16 Out[place], [facility] [id number] Common 09:31:04 Missy [facility] 2022-05-15 Outpatient [place], [facility] [id number] Common 08:32:04 Missy [id number] [facility] 2023-03-20 2023-03-20 Outpatient Elective Clifford Mckeon [facility] [id number] [facility] 14:57:00 20:30:00 53 2023-03-20 2023-03-20 Outpatient [facility] [id number] [facility] 14:57:00 14:57:00 53 2023-03-17 2023-03-17 Outpatient Urgent Clifford Mckeon [facility] JM0 [id number] [facility] 16:10:00 22:00:00 57 2023-03-17 2023-03-17 Outpatient [facility] [id number] [facility] 16:10:00 16:10:00 57 2023-03-13 2023-03-13 Outpatient Urgent Clifford Mckeon [facility] JM0 [id number] [facility] 18:25:00 23:05:00 69 2023-02-04 2023-02-04 Orders Doctor PAULETTE [id number] Univers 00:00:00 00:00:00 Only Unassigned, MICHEAL 350.1.13.10 ity of [facility] 4.2.7.2.686 [facility] [id number] [facility] [address] 2022-07-15 2022-07-15 OFFICE STLMLC STLMLC [id number] Co mmon 00:00:00 00:00:00 VISIT Spirit ESTAB PT - CHI LEVEL 4 [facility] 2022-07-15 2022-07-15 SUB ANNUAL [facility] [id number] Common 00:00:00 00:00:00 MCR Spirit WELLNESS - CHI VISIT [facility] 2022-07-03 2022-07-03 Emergency X LAMONT WYQUYNH ERT [id number] Univers 14:23:00 20:20:00 MAURICIO lehman of [facility] 2022-07-03 2022-07-03 Emergency Elinor Irby [facility] 1.2.8 40.114 [id number] Univers 14:23:00 20:20:00 Mauricio Miguel [address]1.13.[address] [facility] 4.2.7.2.686 [facility] [id number] [facility] [address] 2022-06-13 2022-06-13 OFFICE STLMLC STLMLC [id number] Co mmon 00:00:00 00:00:00 VISIT NEW Spir it PT LEVEL 3 - [facility] 2022-06-13 2022-06-13 (TEL) STLMLC STLMLC [id number] Co mmon 00:00:00 00:00:00 [facility] 2022-05-16 2022-05-16 (TEL) STLMLC STLMLC [id number] Co mmon 00:00:00 00:00:00 [facility] 2022-05-15 2022-05-15 OFFICE STLMLC STLMLC [id number] Co mmon 00:00:00 00:00:00 VISIT NEW Spir it PT LEVEL 4 - [facility] 2021-08-09 2021-08-09 Patient Lux, 1.2.840.1 [id number] Methodi 00:00:00 00:00:00 [place]reach [place] [id number] 3.430.2.7 Hospit a .[id number] l .8 2021-08-04 2021-08-07 [facility] 1.2.840.1 [id number] Methodi 21:39:00 09:10:00 Encounter Tonia Martinez [id number] 3.430.2.7 Hospit a .[id number] l .8 2021-08-05 2021-08-05 [facility] 1.2.840.1 [id number] Methodi 14:40:10 23:59:00 Encounter Tonia Martinez [id number] 3.430.2.7 Hospit a .[id number] l .8 Results Test Description Test Time Test Comments Results Result Comments Source OR MICRO Specimen 2023-03-20 17:35:00 Test Item Value Reference Range Interpretation Comme nts Gram Stain Result (test code = Gram Rare WBC'S seen Stain Result) Gram Stain Result (test code = Gram No organisms seen Stain Result1.1.2) OR CONI Spec Culture (test code = 03/22/23 NO GROWTH AFTER 24 HOURS ORMICCULT) Anaerobic Culture (test code = ANC) 03/22/23 No anaerobes isolated to date. Anaerobic Culture (test code = ANC3.1) 03/25/23 No anaerobes isolat ed. OR CONI Spec Culture (test code = Noris parapsilosis ORMICCULT2.2) Quantity of Growth: (test code = Rare growth Quantity of Growth:) OR CONI Spec Culture (test code = Staphylococcus sp coag neg ORMICCULT2.3) OR CONI Spec Culture (test code = for susceptibility testing. ORMICCULT2.1) Gram Positive [id number] 17:35:00 Test Item Value Reference Range Interpretation Comments Ciprofloxacin (test code = CIP) <=0.5 S Ciprofloxacin (test code = CIP) <=0.5 S Clindamycin (test code = CC) 0.25 S Doxycycline (test code = DX) 2 S Erythromycin (test code = E) >=8 R Gentamicin (test code = GM) <=0.5 S Levofloxacin (test code = LEV) <=0.12 S Linezolid (test code = LNZ) 1 S Moxifloxacin (test code = MFX) <=0.25 S Oxacillin Coni (test code = OX) >=4 R Tetracycline (test code = TET) >=16 R Trimethoprim/Sulfamethoxazole (test 160 R code = SXT) Vancomycin (test code = VA) 1 S Cefoxitin Screen (test code = OXS) Oxacillin Coni (test code = OX) >=4 R Tetracycline (test code = TET) >=16 R Trimethoprim/Sulfamethoxazole (test 160 R code = SXT) Vancomycin (test code = VA) 1 S Glucose [id number] 20:23:00 Test Item Value Reference Range Interpretation Comments Glucose Fingerstick 103 mg/dL 70-115 SHIPPING SUPERVISOR Zenaida (test code = WGLUC) Nilda COMP. METABOLIC PANEL ([id number])2022-07-03 22:16:20 Test Item Value Reference Range Interpretation Comments NA (test code = 134 mmol/L 135-145 L 4938689453) K (test code = 5.0 mmol/L 3.5-5.0 5789849480) CL (test code = 99 mmol/L 98-108 2397017867) CO2 TOTAL (test code = 30 mmol/L 23-31 8411586485) AGAP (test code = 5 2-16 6827068818) BUN (test code = 23 mg/dL 7-23 2599956480) GLUCOSE (test code = 73 mg/dL 70-110 8068058032) CREATININE (test code = 0.97 mg/dL 0.60-1.25 3827425281) TOTAL BILI (test code = 0.8 mg/dL 0.1-1.4 2742479353) CALCIUM (test code = 9.0 mg/dL 8.6-10.6 8309801884) T PROTEIN (test code = 7.6 g/dL 6.3-8.2 9995293977) ALBUMIN (test code = 4.7 g/dL 3.5-5.0 0422947786) ALK PHOS (test code = 110 U/L 34-122 7388052651) ALTv (test code = 37 U/L 5-50 1741-6) AST(SGOT) (test code = 31 U/L 13-40 9279504604) eGFR (test code = 78.7 mL/min/1.73m2 5075933780) BRIJESH (test code = BRIJESH) Association of [...] tests). Lab Interpretation Abnormal (test code = 21158-3) [facility] WITH [id number] 22:01:02 Test Item Value Reference Range Interpretation Comments WBC (test code = 7.58 See_Comment [Automated message] 3490-2) The system [employer] generated this result transmitted ref erence range: 4.20 - 1 0.70 10*3/?L. The re ference range was not u sed to interpret this result as normal/abnor mal. RBC (test code = 4.85 See_Comment [Automated message] 039-8) The system [employer] generated this result transmitted ref erence range: [...] RDW-SD (test code 45.1 fL 38.5-51.6 = 40057-1) RDW-CV (test code 13.9 % 12.1-15.4 = 788-0) PLT (test code = 180 See_Comment [Automated message] 497-3) The system [employer] generated this result transmitted ref erence range: 150 - 32 8 10*3/?L. The re ference range was not u sed to interpret this result as normal/abnor mal. MPV (test code = 9.8 fL 9.8-13.0 48212-1) NRBC/100 WBC (test 0.0 See_Comment [Automat ed message] code = 0585216956) The syste m which generated this result transmitted ref erence range: 0.0 - 10 .0 /100 WBCs. The refer ence range was not u sed to interpret this result as normal/abnor mal. NRBC x10^3 (test See_Comment [Automated message] code = 3729886059) The syste m which generated this result transmitted ref erence range: 10*3/?L. The reference range was not used to interpr et this result as normal/abnormal . GRAN MAT (NEUT) % 74.1 % (test code = 770-8) IMM GRAN % (test 0.30 % code = 8482259418) LYMPH % (test code 14.6 % = 736-9) MONO % (test code 8.0 % = 5905-5) EOS % (test code = 2.5 % 713-8) BASO % (test code 0.5 % = 706-2) GRAN MAT 5.61 10*3/uL 1.99-6.95 x10^3(ANC) (test code = 3168122812) IMM GRAN x10^3 0.00-0.06 (test code = 2251297943) LYMPH x10^3 (test 1.11 10*3/uL 1.09-3.23 code = 731-0) MONO x10^3 (test 0.61 10*3/uL 0.36-1.02 code = 742-7) EOS x10^3 (test 0.19 10*3/uL 0.06-0.53 code = 711-2) BASO x10^3 (test 0.04 10*3/uL 0.01-0.09 code = 704-7) [facility] [id number] 11:09:55 Test Item Value Reference Range Interpretation Comments Resting HR (test code = 0390823537) Resting BP (test code = 4115522353) Peak MET Achieved (test code = 5146995541) Protocol Name (test REGADENO code = 4834197178) Time in Exercise 00:01:00 Phase (test code = 5970090879) Max Systolic BP (test code = 4852801091) Max Diastolic BP (test code = 2237922952) Max Heart Rate (test code = 4703201290) Max Predicted Heart Rate (test code = 3319544164) Target HR Formula (220 - Age)*100% (test code = 1532395716) Test Indication (test chest pain code = 4934369693) Arrhy During Ex (test code = 8470891701) ECG Interp Before EX (test code = 1879434984) ECG Interp During Ex (test code = 7640666531) Ex Summary Comment (test code = 1272084720) Overall HR Response to Exercise (test code = 8411312049) Overall BP Response To Exercise (test code = 1909261626) Reason for Protocol Complete Termination (test code = 0745520361) Stress Test Waveform interpreted in Impression (test code report associated with = 6595395454) image study. No interpretation is provided as part of this Stress ECG report.--Electronically Signed By Doug Jama MD ([id number]), medical transcription editor Annie Casiano ([id number]) on 08/06/2021 5:09:51 AM [facility] 12 [id number] 17:58:43 Test Item Value Reference Range Interpretation Comments Ventricular rate (test code = 253) Atrial rate (test code = 255) CA interval (test code = 266) QRSD interval [...] available-Electronica lly Signed By Min Dove MD ([id number]) on 08/05/2021 11:58:42 AM [facility] ContMRI Knee Right Wo Cont"
[2023-03-25 20:07] LABS: Specific Gravity 1.015 (1.005-1.030); Urine Bacteria None Seen /HPF (<20); Urine Bilirubin NEGATIVE (Negative); Urine Blood 3+ (OVER) (Negative); Urine Clarity Extremely Turbid (Clear); Urine Color Colorless (Yellow); Urine Crystals Unidentified Few /HPF (None Seen); Urine Glucose NEGATIVE (Negative); Urine Mucus Slight /HPF (None Seen); Urine Protein 1+ (Negative); Urine RBC >50 /HPF (None Seen); Urine Urobilinogen Normal (Normal); Urine pH 5.5 (5.0-7.0)
[2023-03-25 20:22] LABS: Absolute Lymphocytes (CBC) 1.7 K/uL (0.7-4.9); Hematocrit 38.3 % (39.6-49.0); Lymphocytes % 15.9 % (15.3-44.8); MPV 7.5 fL (7.6-11.3); Platelets 278 thou/uL (152-406); RBC Red Blood Cell Count 4.35 M/uL (4.33-5.43)
[2023-03-25 21:01] LABS: Potassium 4.4 mEq/L (3.5-5.1)
--- NOTE | 2023-03-25 21:03 | ER ---
Nurse's Notes [facility] Name: Aravind Tyler Age: 62 yrs Sex: Male : 1960 Arrival Date: 03/25/2023 Time: 19:09 Bed 13 Private MD: Diagnosis: Hematuria, unspecified Presentation: 03/25 19:14 Chief complaint: Patient states: "I had a catheter put in last Friday here and now my cm10 family thinks there is blood in it. It's draining like normal and have no problems with it but they told me to get it checked out". Coronavirus screen: At this time, the client does not indicate any symptoms associated with coronavirus-19. Ebola Screen: No symptoms or risks identified at this time. Initial Sepsis Screen: Does the patient meet any 2 criteria? No. Patient's initial sepsis screen is negative. Does the patient have a suspected source of infection? No. Patient's initial sepsis screen is negative. Risk Assessment: Do you want to hurt yourself or someone else? Patient reports no desire to harm self or others. Onset of symptoms was March 25, 2023. 19:14 Method Of Arrival: Ambulatory 10 19:14 Acuity: TED 3 mb9 Triage Assessment: 19:16 General: Appears in no apparent distress. Behavior is calm, cooperative. Pain: Denies cm10 pain. Neuro: Ortiz Agitation-Sedation Scale (RASS): 0 - Alert and Calm Level of Consciousness is awake, alert, obeys commands, Oriented to person, place, time, situation, Appropriate for age. Cardiovascular: Patient's skin is warm and dry. Respiratory: Airway is patent Respiratory effort is even, unlabored, Respiratory pattern is regular, symmetrical. GI: No signs and/or symptoms were reported involving the gastrointestinal system. : Cervantes in place Urine is blood tinged, Denies burning with urination. Derm: Skin is pink, warm \\T\\ dry. Historical: - Allergies: 19:16 Dilaudid; cm10 19:16 Amoxicillin; cm10 - PMHx: 19:16 Back injury; Hypercholesterolemia; Hypertensive disorder; Kidney stone; cm10 - PSHx: 19:16 back; Cholecystectomy; hernia; knee; Shoulder; cm10 - Immunization history:: Adult Immunizations up to date. - Social history:: Smoking status: Patient denies any tobacco usage or history of. Screenin:50 [facility] ED Fall Risk Assessment (Adult) History of falling in the last 3 months, jw7 including since admission No falls in past 3 months (0 pts) Score/Fall Risk Level 0 - 2 = Low Risk. Abuse screen: Denies threats or abuse. Denies injuries from another. Nutritional screening: No deficits noted. Tuberculosis screening: No symptoms or risk factors identified. Assessment: 19:20 General: see triage assessment. jw7 20:16 Reassessment: Patient appears in no apparent distress at this time. No changes from [facility] previously documented assessment. Patient and/or family updated on plan of care and expected duration. Pain level reassessed. Patient is alert, oriented x 3, equal unlabored respirations, skin warm/dry/pink. 21:00 Reassessment: Patient appears in no apparent distress at this time. No changes from [facility] previously documented assessment. Patient and/or family updated on plan of care and expected duration. Pain level reassessed. Patient is alert, oriented x 3, equal unlabored respirations, skin warm/dry/pink. Vital Signs: 19:14 BP 164 / 87; Pulse 88; Resp 18; Temp 98.5; Pulse Ox 98% on R/A; Weight 133.81 kg; mb9 Height 6 ft. 2 in. ; Pain 0/10; 20:00 BP 140 / 82; Pulse 80; Resp 18 S; Pulse Ox 96% on R/A; jw7 21:00 BP 125 / 63; Pulse 76; Resp 16 S; Pulse Ox 97% on R/A; jw7 19:14 Body Mass Index 37.88 (133.81 kg, 187.96 cm) mb9 19:14 Pain Scale: Adult mb9 ED Course: 19:10 Patient arrived in ED. jj6 19:16 Triage completed. cm10 19:16 Maurilio Garcia MD is Attending Physician. ec2 19:16 Arm band placed on. cm10 19:49 Frances Huitron RN is Primary Nurse. jw7 19:50 Patient has correct armband on for positive identification. Bed in low position. Call [facility] light in reach. 20:05 Urinalysis w/ reflexes Sent. oe 20:14 Initial lab(s) drawn, by me, sent to lab. Inserted saline lock: 22 gauge in left jw7 forearm, using aseptic technique. Blood collected. 20:15 BMP Sent. jw7 20:15 CBC with Diff Sent. jw7 21:16 Provided Education on: discharge instructions. jw7 21:16 No provider procedures requiring assistance completed. IV discontinued, intact, jw7 bleeding controlled, No redness/swelling at site. Pressure dressing applied. Administered Medications: No medications were administered Medication: 19:20 VIS not applicable for this client. mb9 Outcome: 21:03 Discharge ordered by . ec2 21:16 Discharged to home ambulatory, jw7 21:16 Condition: stable 21:16 Discharge instructions given to patient, Instructed on discharge instructions, follow up and referral plans. Demonstrated understanding of instructions, follow-up care, 21:16 Patient left the ED. jw7 Signatures: Les Swain Jennifer jj6 Frances Huitron, RN RN jw7 Senait Edmond RN RN mb9 Camille Charles RN RN cm10 Maurilio Garcia MD MD ec2 Corrections: (The following items were deleted from the chart) 19:20 19:14 BP 164 / 87; Pulse 90bpm; Resp 18bpm; Pulse Ox 98% RA; Temp 98.5F; 133.81 kg; mb9 Height 6 ft. 2 in.; BMI: 37.8; Pain 0/10, Adult; cm10 19:21 19:14 Acuity: TED 4 cm10 mb9 20:16 20:15 General: see triage assessment. jw7 jw7
--- NOTE | 2023-03-25 21:03 | EDPHYS ---
Physician Documentation [facility] Name: Aravind Tyler Age: 62 yrs Sex: Male : 1960 Arrival Date: 03/25/2023 Time: 19:09 Bed 13 Private MD: ED Physician Maurilio Garcia HPI: 03/25 19:23 This 62 yrs old Male presents to ER via Ambulatory with complaints of Problem ec2 With Urinary Catheter, Hematuria. 19:23 Patient arrives today due to concern for dark appearing urine. Patient reports that he ec2 has an indwelling Cervantes catheter, states that he has no fevers or chills, no nausea or vomiting. States that he has not had any penile or urethral trauma, has not felt that the catheter has moved. Patient reports that it is flowing appropriately.. Historical: - Allergies: 19:16 Dilaudid; cm10 19:16 Amoxicillin; cm10 - PMHx: 19:16 Back injury; Hypercholesterolemia; Hypertensive disorder; Kidney stone; cm10 - PSHx: 19:16 back; Cholecystectomy; hernia; knee; Shoulder; cm10 - Immunization history:: Adult Immunizations up to date. - Social history:: Smoking status: Patient denies any tobacco usage or history of. ROS: 19:23 Constitutional: as per hpi ec2 Exam: 19:23 Constitutional: GEN: NAD Head: atraumatic Eyes: EOMI Ears: External ears are ec2 normal. CV: regular rate LUNGS: no respiratory distress ABD: non-distended, soft, nontender, no guarding, not rigid : Indwelling Cervantes catheter with cola colored appearing urine. SKIN: no evidence of rashes MSK: no evidence of trauma NEURO: moves all extremities equally Vital Signs: 19:14 BP 164 / 87; Pulse 88; Resp 18; Temp 98.5; Pulse Ox 98% on R/A; Weight 133.81 kg; mb9 Height 6 ft. 2 in. ; Pain 0/10; 20:00 BP 140 / 82; Pulse 80; Resp 18 S; Pulse Ox 96% on R/A; jw7 21:00 BP 125 / 63; Pulse 76; Resp 16 S; Pulse Ox 97% on R/A; jw7 19:14 Body Mass Index 37.88 (133.81 kg, 187.96 cm) mb9 19:14 Pain Scale: Adult mb9 MDM: 19:17 Patient medically screened. ec2 19:23 ED course: Patient arrives today due to concern for dark-colored appearing urine. ec2 Examination remarkable for well-appearing nontoxic dividual otherwise in no acute distress. Will obtain blood work and urinalysis and ensure patency of the catheter. Currently considering UTI, urinary obstruction, renal dysfunction.. 20:14 ED course: Urine with blood present, Cervantes continues to drain appropriately, no ec2 evidence of urinary tract infection on urinalysis.. 21:02 Data reviewed: vital signs. ED course: Metabolic profile with appropriate electrolytes, ec2 minimal renal dysfunction with a GFR 54. On reassessment patient remains well-appearing in no acute distress, will discharge home, return precautions given. Patient has urology appointment in 1 week . 03/25 19:25 Order name: CBC with Diff; Complete Time: 20:34 ec2 03/25 19:25 Order name: BMP; Complete Time: 21:02 ec2 03/25 19:25 Order name: Urinalysis w/ reflexes; Complete Time: 20:14 ec2 03/25 19:30 Order name: IV Saline Lock; Complete Time: 20:15 eh3 Administered Medications: No medications were administered Disposition Summary: 03/25/23 21:03 Discharge Ordered Notes: Location: Home ec2 Condition: Stable ec2 Diagnosis - Hematuria, unspecified ec2 Discharge Instructions: - Discharge Summary Sheet ec2 - Hematuria, Adult ec2 Forms: - Medication Reconciliation Form ec2 - Thank You Letter ec2 - Antibiotic Education ec2 - Prescription Opioid Use ec2 - Patient Portal Instructions ec2 - Leadership Thank You Letter ec2 Signatures: Dispatcher [employer] Lu Greco RN RN 3 Camille Charles RN RN cm10 Maurilio Garcia MD MD ec2
[2023-03-27 15:20] VITALS: BP 125/63; TEMP 98.5; O2SAT 97
== END 2023-03-25 21:16 | disposition home or self-care (01) ==
LOC: ER 19:09
DX: R31.9 Hematuria, unspecified (principal); I10 Essential (primary) hypertension; Z88.1 Allergy status to other antibiotic agents; Z88.6 Allergy status to analgesic agent; Z87.442 Personal history of urinary calculi
CPT/HCPCS: 36415; 80048; 81001; 85025; 99284

== ENCOUNTER 2023-06-18 13:01 | Observation (INO) | payer OTHER ==
[2023-06-18 13:41] LABS: Absolute Lymphocytes (CBC) 0.7 K/uL (0.7-4.9); Hematocrit 36.7 % (39.6-49.0); Lymphocytes % 13.6 % (15.3-44.8); MCV 87.2 fL (80-100); MPV 8.1 fL (7.6-11.3); Platelets 166 thou/uL (152-406)
[2023-06-18 13:50] LABS: Protime INR 1.09
[2023-06-18 14:05] LABS: Albumin 3.6 g/dL (3.4-5.0); Bilirubin Direct 0.1 mg/dL (0-0.2); Bilirubin Indirect, Calculated 0.5 mg/dL (0.2-0.8); Bilirubin Total 0.6 mg/dL (0.2-1.0); Magnesium 1.9 mg/dL (1.6-2.4); Potassium 3.8 mEq/L (3.5-5.1); Protein, Total 6.9 g/dL (6.4-8.2); Troponin High Sensitivity 6.7 pg/mL (<58.9)
--- NOTE | 2023-06-18 14:17 | RAD REPORT ---
EXAM DESCRIPTION: RAD - Chest Single View - 06/18/2023 2:05 pm CLINICAL HISTORY: DYSPNEA Chest pain. COMPARISON: <Comparisons> FINDINGS: Portable technique limits examination quality. The lungs are grossly clear. The heart is normal in size. No displaced fractures. IMPRESSION: No acute intrathoracic process suspected.
--- NOTE | 2023-06-18 16:50 | ER ---
Nurse's Notes [facility] Name: Aravind Tyler Age: 62 yrs Sex: Male : 1960 Arrival Date: 06/18/2023 Time: 13:01 Bed 8 Private MD: Diagnosis: Dizziness and giddiness;Syncope;Weakness Presentation: 06/18 13:10 Chief complaint: EMS states: he started feeling dizzy this morning at approx 11am, when ap3 he checked his sugar it was in the 40's so he ate a reeses peanut butter cup. EMS states the patients BGL was 73 when they arrived. EMS started a 20g IV in the left hand and started NS. EMS also reports they assessed the patients orthostatic blood pressures, which were positive during their assessment. Patient states that he currently "feels drunk". Coronavirus screen: At this time, the client does not indicate any symptoms associated with coronavirus-19. Ebola Screen: No symptoms or risks identified at this time. Initial Sepsis Screen: Does the patient meet any 2 criteria? No. Patient's initial sepsis screen is negative. Does the patient have a suspected source of infection? No. Patient's initial sepsis screen is negative. Risk Assessment: Do you want to hurt yourself or someone else? Patient reports no desire to harm self or others. Onset of symptoms was June 18, 2023 at 11:00. 13:10 Method Of Arrival: EMS: [facility] ap3 13:10 Acuity: TED 3 ap3 13:19 Care prior to arrival: Medication(s) given: Normal saline infusion, 500 mL, IV ap3 initiated. 20 GA, in the right hand. Triage Assessment: 13:14 General: Appears in no apparent distress. Behavior is calm, cooperative, appropriate ap3 for age. Pain:. Neuro: Level of Consciousness is awake, alert, obeys commands, Oriented to person, place, time, situation, Speech is normal. Neuro: Reports weakness. Cardiovascular: Patient's skin is warm and dry. Respiratory: Airway is patent Respiratory effort is even, unlabored, Respiratory pattern is regular, symmetrical. Historical: - Allergies: 13:14 Amoxicillin; ap3 13:14 Dilaudid; ap3 - PMHx: 13:14 Back injury; coronary atherosclerosis; Hypercholesterolemia; Hypertensive disorder; ap3 Kidney stone; - PSHx: 13:14 back; Cholecystectomy; hernia; knee; Shoulder; ap3 - Immunization history:: Client reports receiving the 2nd dose of the Covid vaccine, Flu vaccine is up to date. - Social history:: Smoking status: Patient denies any tobacco usage or history of. Screenin:15 Abuse screen: Denies threats or abuse. Nutritional screening: No deficits noted. ap3 Tuberculosis screening: No symptoms or risk factors identified. Assessment: 16:23 General: Appears in no apparent distress. Neuro: Level of Consciousness is awake, ap3 alert, obeys commands, Oriented to person, place, time, situation, Appropriate for age. Cardiovascular: Patient's skin is warm and dry. Respiratory: Airway is patent Respiratory effort is even, unlabored, Respiratory pattern is regular, symmetrical. 19:58 General: attempted to call report. nurse not avaliable. lg3 Vital Signs: 13:10 BP 120 / 70; Pulse 68; Resp 17; Temp 97.9; Pulse Ox 94% ; Weight 136.08 kg; Height 6 ap3 ft. 2 in. ; 15:48 BP 147 / 79; Pulse 60; Pulse Ox 95% on R/A; ap3 16:31 BP 129 / 70; Pulse 62; ap3 19:55 BP 144 / 76; Pulse 56; Resp 16 S; Pulse Ox 96% on R/A; lg3 13:10 Body Mass Index 38.52 (136.08 kg, 187.96 cm) ap3 ED Course: 13:10 Patient arrived in ED. ap3 13:11 Fanny Lara FNP-C is [facility]. kb 13:11 Hood Batista MD is Attending Physician. kb 13:14 Triage completed. ap3 13:15 Patient has correct armband on for positive identification. Placed in gown. Bed in low ap3 position. Call light in reach. Side rails up X 1. child monitor on. Pulse ox on. NIBP on. 13:19 Maintain EMS IV. Site clean \\T\\ dry. Gauge \\T\\ site: 20g right hand. ap 3 13:34 Mishel Sherman RN is Primary Nurse. ap3 13:34 Basic Metabolic Panel Sent. ap3 13:34 CBC with Diff Sent. ap3 13:34 Hepatic Function Sent. ap3 13:34 Magnesium Sent. ap3 13:34 Protime (+inr) Sent. ap3 13:34 Ptt, Activated Sent. ap3 14:07 Chest Single View XRAY In Process Unspecified. EDMS 16:49 Jhonatan Batista MD is Hospitalizing Provider. kb 21:25 No provider procedures requiring assistance completed. Patient admitted, IV remains in lg3 place. No redness/swelling at site. Administered Medications: No medications were administered Medication: 21:25 VIS not applicable for this client. lg3 Outcome: 16:49 Decision to Hospitalize by Provider. kb 21:25 Admitted to Med/surg accompanied by tech, via wheelchair, Report called to Veronique lg3 21:25 Condition: stable 21:25 Instructed on the need for admit, Demonstrated understanding of instructions, 21:25 Patient left the ED. lg3 Signatures: Dispatcher [employer] Fanny Lewis, [employer]-C [employer]-Mishel Casey, RN RN ap3 Reyna Velasco RN RN lg3
--- NOTE | 2023-06-18 16:50 | EDPHYS ---
Physician Documentation [facility] Name: Aravind Tyler Age: 62 yrs Sex: Male : 1960 Arrival Date: 06/18/2023 Time: 13:01 Bed 8 Private MD: ED Physician Hood Batista HPI: 06/18 13:45 This 62 yrs old Male presents to ER via EMS with complaints of Dizziness. kb 13:45 Patient is a 62-year-old male who presents for dizziness which led to the syncopal kb episode just prior to arrival. States he was cleaning a kitchen when he became dizzy and lightheaded. States he checked his blood sugar and it was in the 40s so he drank some orange juice and called the PA. He was told to eat some chocolate so he ate 1 reeses, started walking to the living room when he became more dizzy so he sat down and reports that he passed out for a couple of minutes. States he woke up, ate another reeses and called EMS. States he had similar episodes of dizziness when his sugar has dropped in the past. Denies any chest pain or palpitations. States the dizziness is worse whenever he stands up. States he feels weak. Historical: - Allergies: 13:14 Amoxicillin; ap3 13:14 Dilaudid; ap3 - PMHx: 13:14 Back injury; coronary atherosclerosis; Hypercholesterolemia; Hypertensive disorder; ap3 Kidney stone; - PSHx: 13:14 back; Cholecystectomy; hernia; knee; Shoulder; ap3 - Immunization history:: Client reports receiving the 2nd dose of the Covid vaccine, Flu vaccine is up to date. - Social history:: Smoking status: Patient denies any tobacco usage or history of. ROS: 13:45 Constitutional: Negative for fever, chills, and weight loss, kb 13:45 Neuro: Positive for dizziness, syncope, weakness, 13:45 All other systems are negative, Exam: 13:45 Constitutional: This is a well developed, well nourished patient who is awake, alert, kb and in no acute distress. Head/Face: Normocephalic, atraumatic. Eyes: Pupils equal round and reactive to light, extra-ocular motions intact. Lids and lashes normal. Conjunctiva and sclera are non-icteric and not injected. Cornea within normal limits. Periorbital areas with no swelling, redness, or edema. ENT: Moist Mucous membranes Cardiovascular: Regular rate Respiratory: Respirations even and unlabored. No increased work of breathing. Talking in full sentences Abdomen/GI: Soft, non-tender. No distention Skin: Warm, dry with normal turgor. Normal color. MS/ Extremity: Pulses equal, no cyanosis. Neurovascular intact. Full, normal range of motion. Neuro: Awake and alert, GCS 15, oriented to person, place, time, and situation. Moves all extremities. Normal gait. 16:02 ECG was reviewed by the Attending Physician. kb Vital Signs: 13:10 BP 120 / 70; Pulse 68; Resp 17; Temp 97.9; Pulse Ox 94% ; Weight 136.08 kg; Height 6 ap3 ft. 2 in. ; 15:48 BP 147 / 79; Pulse 60; Pulse Ox 95% on R/A; ap3 16:31 BP 129 / 70; Pulse 62; ap3 19:55 BP 144 / 76; Pulse 56; Resp 16 S; Pulse Ox 96% on R/A; lg3 13:10 Body Mass Index 38.52 (136.08 kg, 187.96 cm) ap3 MDM: 13:11 Patient medically screened. kb 13:48 Differential diagnosis: cardiac arrhythmia, generalized weakness, hypovolemia, kb idiopathic dizziness, syncope, Hypoglycemia. Data reviewed: vital signs, nurses notes. 13:48 Historians other than the Patient: EMS: [facility]. kb 15:59 ED course: Patient sitting up in bed, just ate a sandwich and a bag of chips. Will wait kb for fluids to finish, recheck sugar and ambulate patient to see if symptoms have resolved. Patient reports improvement of symptoms since arrival at this time. Patient states he is not diabetic and does not take anything for diabetes but has these hypoglycemic episodes at times. States they have been coming on more frequently recently, last episode was 4 days ago. Will reevaluate after completion of treatment.. 16:47 Consideration of Admission/Observation Patient was admitted/placed on observation. kb Escalation of care including admission/observation considered. Management of patient was discussed with the following: Hospitalist: Hospitalist team, pt accepted for admission under Dr Batista. Counseling: I had a detailed discussion with the patient and/or guardian regarding the historical points, exam findings, and any diagnostic results supporting the discharge/admit diagnosis, lab results, radiology results, the need for further work-up and treatment in the hospital. ED course: Pt states his symptoms have started increasing again. Reports dizziness and lightheadedness. Will admit pt . 06/18 13:17 Order name: Basic Metabolic Panel; Complete Time: 14:06 kb 06/18 13:17 Order name: CBC with Diff; Complete Time: 13:44 kb 06/18 13:17 Order name: Hepatic Function; Complete Time: 14:06 kb 06/18 13:17 Order name: Magnesium; Complete Time: 14:06 kb 06/18 13:17 Order name: Protime (+inr); Complete Time: 14:00 kb 06/18 13:17 Order name: Ptt, Activated; Complete Time: 14:00 kb 06/18 13:17 Order name: Troponin High Sensitivity; Complete Time: 14:06 kb 06/18 13:17 Order name: Urinalysis w/ reflexes kb 06/18 13:30 Order name: Glucose, Ancillary Testing; Complete Time: 13:33 EDMS 06/18 14:49 Order name: Glucose, Ancillary Testing; Complete Time: 14:55 EDMS 06/18 18:26 Order name: Glucose, Ancillary Testing; Complete Time: 18:35 EDMS 06/18 20:32 Order name: Glucose, Ancillary Testing; Complete Time: 20:32 EDMS 06/18 13:17 Order name: Chest Single View XRAY; Complete Time: 14:18 kb 06/18 17:37 Order name: Head Brain Wo Cont CT la1 06/18 18:37 Order name: CT; Complete Time: 18:37 EDMS 06/18 13:17 Order name: EKG; Complete Time: 13:18 kb 06/18 13:17 Order name: Cardiac monitoring; Complete Time: 13:19 kb 06/18 13:17 Order name: EKG - Nurse/Tech; Complete Time: 13:45 kb 06/18 13:17 Order name: IV Saline Lock; Complete Time: 13:19 kb 06/18 13:17 Order name: Labs collected and sent; Complete Time: 13:19 kb 06/18 13:17 Order name: NPO; Complete Time: 13:19 kb 06/18 13:17 Order name: O2 Per Protocol; Complete Time: 13:19 kb 06/18 13:17 Order name: O2 Sat Monitoring; Complete Time: 13:19 kb EC:02 Rate is 55 beats/min. Rhythm is regular. QRS [place] is Normal. MS interval is normal at kb 198 msec. QRS interval is normal at 116 msec. QT interval is normal at 417 msec. Administered Medications: No medications were administered Disposition Summary: 06/18/23 16:49 Hospitalization Ordered Notes: Hospitalization Status: Observation kb Provider: Jhonatan Batista Location: Telemetry/MedSurg (observation) kb Condition: Stable kb Problem: new kb Symptoms: are unchanged kb Bed/Room Type: Standard Room Assignment: 208(06/18/23 18:26) mv Diagnosis - Dizziness and giddiness kb - Syncope kb - Weakness kb Forms: - Medication Reconciliation Form kb - SBAR form kb - Leadership Thank You Letter kb Addendum: 06/20/2023 08:45 Co-signature as Attending Physician, Hood Batista MD I reviewed the patient's care r n provided by the Advanced Practice Provider and agree with the diagnosis and treatment plan. Signatures: Dispatcher [employer] Fanny Lewis, CORPORATE COUNSEL-C CORPORATE COUNSEL-Ckb Hood Batista MD MD rn Prokisch, Amanda, RN RN ap3 Nora Cleveland Corrections: (The following items were deleted from the chart) 06/18 18:26 16:49 kb mv
--- NOTE | 2023-06-18 17:41 | P.HP ---
Certification for Inpatient Patient admitted to: Observation With expected LOS: <2 Midnights Patient will require the following post-hospital care: None Practitioner: I am a practitioner with admitting privileges, knowledge of patient current condition, hospital course, and medical plan of care. Services: Services provided to patient in accordance with Admission requirements found in Title 42 Section 412.3 of the Code of Federal Regulations Patient History Date of Service: 06/18/23 Reason for admission: Hypoglycemia, syncope History of Present Illness: 62-year-old male with history of CAD, hypertension, hyperlipidemia, hypoglycemia presents to the emergency department chief complaint of syncope, hypoglycemia. He reports she has had intermittent episodes of hypoglycemia since the , he does not take any antidiabetic agents, has been having 2-3 episodes per month for the past few months but typically does not have a syncopal episode. Today he made breakfast eating pancakes around 7 AM and sometime between 9 and 10 AM he felt dizzy, lightheaded like his blood sugar was low, he drank some orange juice and then had a syncopal event. Upon waking up from his syncopal event he checked his blood glucose level and found to be 48, subsequently increased to the 50s. He called the [place] nurses hotline who recommended calling EMS who came out and transported to the hospital for further evaluation. He was evaluated in the emergency department, his blood sugars after eating maintained 80s to 90s although patient was still feeling dizzy/lightheaded. NIH score is 0, no other focal neurological deficits were noted. Given he still feeling unwell ED provider wishes to admit under observation for syncope, hypoglycemia. Allergies amoxicillin Allergy (Verified 05/15/23 20:37) Itching hydromorphone [From Dilaudid] Allergy (Verified 05/15/23 20:37) Itching Home Medications: Finasteride 5 mg PO DAILY 05/15/23 Gabapentin [Neurontin] 800 mg PO TID 05/15/23 Nitrofurantoin Monohyd/M-Cryst [Nitrofurantoin Mccone-Mcr 100 mg] 100 mg PO DAILY 05/15/23 Tamsulosin [Flomax] 0.4 mg PO DAILY 05/15/23 - Past Medical/Surgical History Diabetic: No -: Hypertension -: Hyperlipidemia -: CAD -: Hypoglycemia -: Cholecystectomy -: Hernia repair -: Knee surgery, shoulder surgery Psychosocial/ Personal History: Lives at home with family - Family History Mother -: Heart disease - Social History Alcohol use: No CD- Drugs: No Place of Residence: Home Review of Systems 10-point ROS is otherwise unremarkable Neurological: Other (Dizziness, syncope) Physical Examination - Physical Exam General: Alert, In no apparent distress, Oriented x3 HEENT: Atraumatic, PERRLA, EOMI Neck: Supple, 2+ carotid pulse no bruit, No LAD Respiratory: Clear to auscultation bilaterally, Normal air movement Cardiovascular: Regular rate/rhythm, Normal S1 S2 Gastrointestinal: Normal bowel sounds Musculoskeletal: No tenderness Integumentary: No rashes Neurological: Normal speech, Normal strength at 5/5 x4 extr, Normal affect - Studies Laboratory Data (last 24 hrs) 06/18/23 06/18/23 06/18/23 13:31 13:31 13:31 WBC 5.30 Hgb 12.8 L Hct 36.7 L Plt Count 166 PT 12.0 INR 1.09 APTT 26.6 Sodium 136 Potassium 3.8 BUN 21 H Creatinine 1.02 Glucose 86 Magnesium 1.9 Total Bilirubin 0.6 AST 35 ALT 61 Alkaline Phosphatase 116 Assessment and Plan - Plan Assessment: Hypoglycemia Syncope history of CAD Hypertension Hyperlipidemia Plan: Hypoglycemia Syncope Monitor blood sugars closely, patient was able to tolerate diet in ED Reports history of hypoglycemia dating back to 1994, 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 as well as had an insulinoma ruled out in the distant past He had eaten pancakes about 2 hours before the episode Blood sugar stable to far Still having some dizziness, feeling unwell Observe overnight, if symptoms improve may discharge in the morning If symptoms still present or worsening will consider further evaluation including possible MRI history of CAD Monitor on telemetry given syncope, trend troponins Hypertension Hyperlipidemia Continue medications DVT PPX: Lovenox Code status: full Discharge Plan: Home Plan to discharge in: 24 Hours - Advance Directives Does patient have a Living Will: No Does patient have a Durable POA for Healthcare: No - Code Status/Comfort Care Code Status Assessed: Yes (Full code) Critical Care: No Time Spent Managing Pts Care (In Minutes): 70
--- NOTE | 2023-06-18 18:36 | RAD REPORT ---
EXAM DESCRIPTION: CT - Head Brain Wo Cont - 06/18/2023 6:26 pm CLINICAL HISTORY: dizzy, hx aneurysm Headache, drowsiness COMPARISON: <Comparisons> TECHNIQUE: All CT scans are performed using dose optimization technique as appropriate and may inclu de automated exposure control or mA/KV adjustment according to patient size. FINDINGS: No intracranial hemorrhage, hydrocephalus or extra-axial fluid collection.Mild brain atrop hy is present.No areas of brain edema or evidence of midline shift. The paranasal sinuses and mastoids are clear. The calvarium is intact. IMPRESSION: No acute intracranial abnormality.
[2023-06-18] MEDS: NA CHLORIDE 0.9% 1,000 ML IV SCH (22:30)
[2023-06-18 22:36] VITALS: O2SAT 98; BMI 39.9
[2023-06-19 05:57] LABS: Hematocrit 37.5 % (39.6-49.0); MCV 87.3 fL (80-100); Platelets 176 thou/uL (152-406)
[2023-06-19 06:06] LABS: Magnesium 2.1 mg/dL (1.6-2.4); Thyroid Stimulating Hormone 1.77 uIU/mL (0.358-3.740)
[2023-06-19] MEDS: NA CHLORIDE 0.9% 1,000 ML IV SCH (07:52)
[2023-06-19] MEDS ORDERED: ENOXAPARIN 40 MG/0.4 ML SQ SCH (09:00)
--- NOTE | 2023-06-19 11:31 | P.DS ---
Admission Date: 06/18/23 Discharge Date: 06/19/23 Disposition: ROUTINE DISCHARGE Discharge Condition: GOOD Reason for Admission: Hypoglycemia, syncope Brief History of Present Illness: 62-year-old male with history of CAD, hypertension, hyperlipidemia, hypoglycemia presents to the emergency department chief complaint of syncope, hypoglycemia. He reports she has had intermittent episodes of hypoglycemia since the , he does not take any antidiabetic agents, has been having 2-3 episodes per month for the past few months but typically does not have a syncopal episode. Today he made breakfast eating pancakes around 7 AM and sometime between 9 and 10 AM he felt dizzy, lightheaded like his blood sugar was low, he drank some orange juice and then had a syncopal event. Upon waking up from his syncopal event he checked his blood glucose level and found to be 48, subsequently increased to the 50s. He called the [place] nurses hotline who recommended calling EMS who came out and transported to the hospital for further evaluation. He was evaluated in the emergency department, his blood sugars after eating maintained 80s to 90s although patient was still feeling dizzy/lightheaded. NIH score is 0, no other focal neurological deficits were noted. Given he still feeling unwell ED provider wishes to admit under observation for syncope, hypoglycemia. Hospital Course: Assessment: Hypoglycemia Syncope history of CAD Hypertension Hyperlipidemia Patient was admitted to the hospital for single episode secondary to hypoglycemia. His blood sugar remained within normal limits of the evening and this morning, he was tolerating his diet. He does not have a known history of diabetes mellitus nor does he take any antidiabetic agents, he has been dealing with episodes of hypoglycemia since the . He did report previous evaluation for insulinoma and evaluation from endocrinology recommended carb consistent diet to limit insulin spikes postprandially. Discussed obtaining a continuous glucose monitoring device to help limit frequency/severity of episodes. Recommend follow-up with your primary care doctor in 1 to 2 weeks Vital Signs/Physical Exam: Temp Pulse Resp BP Pulse Ox 98.0 F 67 16 149/80 H 97 06/19/23 08:00 06/19/23 08:00 06/19/23 08:00 06/19/23 08:00 06/19/23 08:00 General: Alert, In no apparent distress, Oriented x3 HEENT: Atraumatic, PERRLA Neck: Supple, JVD not distended Respiratory: Clear to auscultation bilaterally, Normal air movement Cardiovascular: Regular rate/rhythm, Normal S1 S2 Gastrointestinal: Normal bowel sounds Musculoskeletal: No tenderness Integumentary: No rashes Neurological: Normal speech, Normal tone Laboratory Data at Discharge: WBC 6.10 thou/uL (4.3-10.9) 06/19/23 04:57 Hgb 13.2 g/dL (13.6-17.9) L 06/19/23 04:57 Hct 37.5 % (39.6-49.0) L 06/19/23 04:57 Plt Count 176 thou/uL (152-406) 06/19/23 04:57 PT 12.0 SECONDS (9.5-12.5) 06/18/23 13:31 INR 1.09 06/18/23 13:31 APTT 26.6 SECONDS (24.3-36.9) 06/18/23 13:31 Sodium 137 mEq/L (136-145) 06/19/23 04:57 Potassium 4.0 mEq/L (3.5-5.1) 06/19/23 04:57 BUN 17 mg/dL (7-18) 06/19/23 04:57 Creatinine 0.85 mg/dL (0.70-1.30) 06/19/23 04:57 Glucose 114 mg/dL (74-106) H 06/19/23 04:57 Magnesium 2.1 mg/dL (1.6-2.4) 06/19/23 04:57 Total Bilirubin 0.6 mg/dL (0.2-1.0) 06/18/23 13:31 AST 35 U/L (15-37) 06/18/23 13:31 ALT 61 U/L (16-61) 06/18/23 13:31 Alkaline Phosphatase 116 U/L (45-117) 06/18/23 13:31 Home Medications: Finasteride 5 mg PO BID 05/15/23 Gabapentin [Neurontin*] 800 mg PO TID 05/15/23 Tamsulosin [Flomax*] 0.4 mg PO DAILY 05/15/23 Amlodipine [Norvasc*] 5 mg PO DAILY 06/18/23 Aspirin [Aspirin EC] 81 mg PO DAILY 06/18/23 Fluoxetine HCl [Prozac] 80 mg PO DAILY 06/18/23 Omeprazole 20 mg PO DAILY 06/18/23 Prednisolone Acetate/Pf [Prednisolone Acet 1% Eye Drop] 1 drop EACH EYE DAILY 06/18/23 Ranolazine [Ranolazine ER] 500 mg PO BID 06/18/23 lamoTRIgine [Subvenite] 25 mg PO SEECOM 06/18/23 lamoTRIgine [Subvenite] 50 mg PO DAILY 06/18/23 Physician Discharge Instructions: Patient was admitted to the hospital for single episode secondary to hypoglycemia. His blood sugar remained within normal limits of the evening and this morning, he was tolerating his diet. He does not have a known history of diabetes mellitus nor does he take any antidiabetic agents, he has been dealing with episodes of hypoglycemia since the . He did report previous evaluation for insulinoma and evaluation from endocrinology recommended carb consistent diet to limit insulin spikes postprandially. Discussed obtaining a continuous glucose monitoring device to help limit frequency/severity of episodes. Recommend follow-up with your primary care doctor in 1 to 2 weeks Diet: ADA Followup: Missy Fernandez NP [Primary Care Provider] - 1-2 Weeks Time spent managing pt's care (in minutes): 30
[2023-06-19 13:34] VITALS: BP 133/79; TEMP 98.7
== END 2023-06-19 12:28 | disposition home or self-care (01) ==
LOC: ER 13:01 → ERHOLD 17:29 → 2ND 19:37
PROVIDERS: ADMIT Hospitalist; ATTEND Hospitalist
DX: E16.2 Hypoglycemia, unspecified (principal); I25.10 Atherosclerotic heart disease of native coronary artery without angina pectoris; I10 Essential (primary) hypertension; E78.5 Hyperlipidemia, unspecified
CPT/HCPCS: 36415; 70450; 71045; 80048; 80076; 82947; 83735; 84439; 84443; 84484; 85025; 85610; 85730; 93005; G0378; J1650; J7030

== ENCOUNTER → 2023-08-23 | Emergency (ER) | payer OTHER ==
[~2023-08-23] MED LIST: HYDROCODONE/CHLORPHEN 5 ML/OSYR ONE; IPRATROPIUM BROM 0.5MG/2.5ML ONE; LEVALBUTEROL 1.25 MG/3 ML NEB ONE; Levofloxacin500mg IV 500 MG/100 ML BAG IV ONE; METHYLPREDNISOLONE 125 MG INJ ONE; MUPIROCIN 2% OINT 22GM TUBE TOP ONE; Magnesium Sulfate 2gm IVPB 2 G/50 ML BAG IV ONE; NA CHLORIDE 0.9% 1,000 ML ONE; predniSONE 20 MG TAB ONE
--- NOTE | 2023-08-23 17:37 | RAD REPORT ---
EXAM DESCRIPTION: RAD - Chest Single View - 08/23/2023 5:28 pm CLINICAL HISTORY: UPPER RES;Cough COMPARISON: Chest Single View dated 06/18/2023; Chest Single View dated 05/15/2023 FINDINGS: Lines: None. Lungs: No evidence of edema or pneumonia. Pleural: No significant pleural effusions or pneumothorax. Cardiac: The heart size is within normal limits. Mediastinum: Within normal limits. Bones: No acute fractures. Other: None IMPRESSION: No acute cardiopulmonary disease.
[2023-08-23 17:44] LABS: Absolute Eosinophils 0.1 K/uL (0-0.5); Absolute Lymphocytes (CBC) 0.7 K/uL (0.7-4.9); Absolute Monocytes 0.6 K/uL (0.1-1.3); Absolute Neutrophil 9.8 K/uL (1.8-8.0); Basophils % 0.3 % (0-1.3); Eosinophils % 0.6 % (0-4.4); Hematocrit 38.2 % (39.6-49.0); Hemoglobin 13.5 g/dL (13.6-17.9); MCH 30.8 pg (27.0-35.0); MCHC 35.4 g/dL (32.0-36.0); MPV 8.1 fL (7.6-11.3); Monocytes % 5.4 % (3.3-12.3); Neutrophils % 87.7 % (41.7-73.7); Nucleated Red Blood Cells % 0.1 % (0-0); Platelets 258 thou/uL (152-406); RBC Red Blood Cell Count 4.39 M/uL (4.33-5.43); Red Cell Distribution Width 15.2 % (12.1-15.2)
[2023-08-23 17:51] LABS: PT Prothrombin Time 12.6 SECONDS (9.5-12.5); Protime INR 1.15
[2023-08-23 18:04] LABS: Albumin 4.1 g/dL (3.4-5.0); Anion Gap 9.8 mEq/L (5.0-15.0); Bilirubin Direct 0.2 mg/dL (0-0.2); Bilirubin Indirect, Calculated 0.6 mg/dL (0.2-0.8); Bilirubin Total 0.8 mg/dL (0.2-1.0); Magnesium 2.1 mg/dL (1.6-2.4); Potassium 3.8 mEq/L (3.5-5.1); Protein, Total 8.1 g/dL (6.4-8.2); Troponin High Sensitivity 4.3 pg/mL (<58.9)
--- NOTE | 2023-08-23 19:25 | RAD REPORT ---
EXAM DESCRIPTION: CT - Chest For Pe Angio - 08/23/2023 7:16 pm CLINICAL HISTORY: Cough;Dyspnea COMPARISON: No comparisons TECHNIQUE: Dynamically enhanced axial 3 mm thick images of the chest were obtained during administra tion of <100> mL Isovue 370 IV contrast. Coronal and oblique reconstruction images were generated and reviewed. Exam utilizes a protocol for optimal evaluation of pulmonary arterial tree. Maximum intensity projections 3D imaging was utilized All CT scans are performed using dose optimization technique as appropriate and may include automated exposure control or mA/KV adjustment according to patient size. FINDINGS: Chest Wall: No suspicious thyroid nodules or pathologic lymphadenopathy. Lungs: Mild nodularity in the medial right lower lobe as well some bronchial wall thickening. Pleura: No significant effusions or pneumothorax. Mediastinum/gerber: No pathologic lymphadenopathy. Pulmonary arteries/Aorta: No filling defect identified. No aortic aneurysm. Heart: No significant pericardial effusion. Normal heart size. Upper abdomen: No acute abnormality.Hepatic steatosis Bones: No acute abnormality. IMPRESSION: Negative for pulmonary embolism. Mild bronchial wall thickening and nodularity in the me dial right lower lobe could reflect pneumonia or pneumonitis, possibly secondary to aspiration.
--- NOTE | 2023-08-23 19:33 | EDPHYS ---
Physician Documentation [facility] Name: Aravind [facility] Age: 62 yrs Sex: Male : 1960 Arrival Date: 08/23/2023 Time: 16:25 Bed 4 Private MD: Missy Fernandez ED Physician Nik Vega HPI: 08/22 17:58 This 62 yrs old Male presents to ER via Ambulatory with complaints of Cough, que Breathing Difficulty, Congestion. 17:58 The patient or guardian reports airway noise, cough, difficulty breathing, flu que symptoms, arthralgias, low-grade fever, myalgias. Onset: The symptoms/episode began/occurred 2 week(s) ago. Severity of symptoms: At their worst the symptoms were moderate, in the emergency department the symptoms are unchanged. Associated signs and symptoms: The patient has no apparent associated signs or symptoms. The patient has not experienced similar symptoms in the past. Historical: - Allergies: 16:51 Amoxicillin; ko1 16:51 Dilaudid; ko1 - PMHx: 16:51 Back injury; coronary atherosclerosis; Hypercholesterolemia; Hypertensive disorder; ko1 Kidney stone; - PSHx: 16:51 back; Cholecystectomy; knee; hernia; Shoulder; ko1 - Immunization history:: Adult Immunizations up to date. - Social history:: Smoking status: Patient denies any tobacco usage or history of. ROS: 17:59 Constitutional: Negative for fever, chills, and weight loss, Eyes: Negative for injury, que pain, redness, and discharge, ENT: Negative for injury, pain, and discharge, Neck: Negative for injury, pain, and swelling, Cardiovascular: Negative for chest pain, palpitations, and edema, Abdomen/GI: Negative for abdominal pain, nausea, vomiting, diarrhea, and constipation, Back: Negative for injury and pain, : Negative for injury, bleeding, discharge, and swelling, MS/Extremity: Negative for injury and deformity, Skin: Negative for injury, rash, and discoloration, Neuro: Negative for headache, weakness, numbness, tingling, and seizure, Psych: Negative for depression, anxiety, suicide ideation, homicidal ideation, and hallucinations, Allergy/Immunology: Negative for hives, rash, and allergies, Endocrine: Negative for neck swelling, polydipsia, polyuria, polyphagia, and marked weight changes, Hematologic/Lymphatic: Negative for swollen nodes, abnormal bleeding, and unusual bruising, 17:59 Respiratory: Positive for cough, shortness of breath, wheezing, expiratory, 17:59 MS/extremity: Negative for acute changes, Exam: 17:59 Constitutional: This is a well developed, well nourished patient who is awake, alert, que and in no acute distress. Head/Face: Normocephalic, atraumatic. Eyes: Pupils equal round and reactive to light, extra-ocular motions intact. Lids and lashes normal. Conjunctiva and sclera are non-icteric and not injected. Cornea within normal limits. Periorbital areas with no swelling, redness, or edema. ENT: Nares patent. No nasal discharge, no septal abnormalities noted. Tympanic membranes are normal and external auditory canals are clear. Oropharynx with no redness, swelling, or masses, exudates, or evidence of obstruction, uvula midline. Mucous membranes moist. Neck: Trachea midline, no thyromegaly or masses palpated, and no cervical lymphadenopathy. Supple, full range of motion without nuchal rigidity, or vertebral point tenderness. No Meningismus. Chest/axilla: Normal chest wall appearance and motion. Nontender with no deformity. No lesions are appreciated. Cardiovascular: Regular rate and rhythm with a normal S1 and S2. No gallops, murmurs, or rubs. Normal PMI, no JVD. No pulse deficits. Abdomen/GI: Soft, non-tender, with normal bowel sounds. No distension or tympany. No guarding or rebound. No evidence of tenderness throughout. Back: No spinal tenderness. No costovertebral tenderness. Full range of motion. Male : Normal genitalia with no discharge or lesions. Skin: Warm, dry with normal turgor. Normal color with no rashes, no lesions, and no evidence of cellulitis. MS/ Extremity: Pulses equal, no cyanosis. Neurovascular intact. Full, normal range of motion. Neuro: Awake and alert, GCS 15, oriented to person, place, time, and situation. Cranial nerves II-XII grossly intact. Motor strength 5/5 in all extremities. Sensory grossly intact. Cerebellar exam normal. Normal gait. Psych: Awake, alert, with orientation to person, place and time. Behavior, mood, and affect are within normal limits. 17:59 ECG was reviewed by the Attending Physician. 19:09 Musculoskeletal/extremity: ROM: intact in all extremities, full active range of motion, que full passive range of motion, Circulation is intact in all extremities. Sensation intact. Compartment Syndrome exam of affected extremity: is normal. DVT Exam: No signs of deep vein thrombosis. no pain, no swelling, no tenderness, negative Homans' sign noted on exam, no appreciated bluish discoloration, no erythema, no increased warmth, Vital Signs: 16:50 BP 146 / 78; Pulse 73; Resp 20; Temp 97.3; Pulse Ox 97% on R/A; ko1 19:24 BP 139 / 65; Pulse 78; Resp 19; Pulse Ox 97% on R/A; iw 20:16 BP 136 / 60; Pulse 88; Resp 16; Pulse Ox 100% on R/A; jb4 MDM: 16:57 Patient medically screened. que 18:02 Differential diagnosis: Anxiety Reaction asthma, Bronchitis CHF exacerbation, Chronic que Obstructive Pulmonary Disease acute asthma, exercise-induced asthma, reactive airway, CHF, URI, Myocardial Infarction pneumonia, Pneumothorax pulmonary edema, Pulmonary Embolism reactive airway disease. Antibiotic administration: The patient is discharged and will get outpatient antibiotics, Levaquin. Differential Diagnosis: Obstructed Airway Bronchitis Influenza Upper Respiratory Infection Sinusitis Pharyngitis Asthma Exacerbation Viral Syndrome Pneumonia. Immunization status: Influenza vaccine: within last 5 years. Data reviewed: vital signs, nurses notes, lab test result(s), EKG, radiologic studies, plain films. Consideration of Admission/Observation Escalation of care including admission/observation considered. I considered the following discharge prescriptions or medication management in the emergency department Medications were administered in the Emergency Department. See MAR. Test considered but Not performed: Ultrasound NO 2 D ECHO. 08/22 17:02 Order name: Basic Metabolic Panel; Complete Time: 18:11 [facility] 08/22 17:02 Order name: CBC with Diff; Complete Time: 18:11 [facility] 08/22 17:02 Order name: LFT's; Complete Time: 18:11 [facility] 08/22 17:02 Order name: Magnesium; Complete Time: 18:11 [facility] 08/22 17:02 Order name: NT PRO-BNP; Complete Time: 18:11 [facility] 08/22 17:02 Order name: PT-INR; Complete Time: 18:11 [facility] 08/22 17:02 Order name: Troponin HS; Complete Time: 18:11 [facility] 08/22 17:02 Order name: Blood Culture Adult (2) 08/22 17:02 Order name: Lactate w/ 2H reflex if indic.; Complete Time: 18:11 [facility] 08/22 17:02 Order name: XRAY Chest (1 view); Complete Time: 18:11 [facility] 08/22 17:58 Order name: CT Chest For PE Angio; Complete Time: 19:32 [facility] 08/22 19:21 Order name: INCENTIVE SPIROMETRY 08/22 17:02 Order name: EKG; Complete Time: 17:02 [facility] 08/22 17:02 Order name: Cardiac monitoring; Complete Time: 17:38 [facility] 08/22 17:02 Order name: EKG - Nurse/Tech; Complete Time: 18:01 [facility] 08/22 17:02 Order name: IV Saline Lock; Complete Time: 17:38 [facility] 08/22 17:02 Order name: Labs collected and sent; Complete Time: 17:38 [facility] 08/22 17:02 Order name: O2 Per Protocol; Complete Time: 17:38 [facility] 08/22 17:02 Order name: O2 Sat Monitoring; Complete Time: 17:38 [facility] EC:59 Rate is 59 beats/min. Rhythm is regular. QRS Stanford is Normal. WA interval is normal. QRS que interval is normal. QT interval is normal. No Q waves. T waves are Normal. No ST changes noted. Clinical impression: Normal ECG, Sinus bradycardia, and No evidence of ischemia. Interpreted by me. Reviewed by me. Administered Medications: 17:24 Not Given (Duplicate Order): [id number] mg 100 ml IVPB once over 60 mins que 17:38 Drug: NS 0.9% IV 1000 ml IV at 1 bolus Per protocol; 1000 mL bolus Route: IV; Rate: 1 hb bolus; Site: left antecubital; 19:00 Follow up: IV Status: Completed infusion iw 17:38 Drug: levofloxacin IVPB 750 mg 150 ml IVPB once over 90 mins Volume: 150 ml; Route: hb IVPB; Infused Over: 90 mins; Site: left antecubital; 19:00 Follow up: IV Status: Completed infusion iw 17:59 Drug: Levalbuterol Inhalation 3.75 mg Inhalation once Route: Inhalation; iw 17:59 Drug: Ipratropium Inhalation Aerosol 0.5 mg Inhalation once Route: Inhalation; iw 18:00 Drug: MethylPrednisoLONE IVP 125 mg IVP once Route: IVP; Site: left antecubital; hb 19:23 Follow up: Response: No adverse reaction iw 18:00 Drug: predniSONE PO 40 mg PO once Route: PO; hb 19:23 Follow up: Response: No adverse reaction iw 18:01 Drug: Tussionex Pennkinetic ER PO Suspension 5 ml PO once Route: PO; hb 19:23 Follow up: Response: Marked relief of symptoms iw 19:23 Drug: Magnesium Sulfate IVPB 2 grams IVPB once over 1 hrs Route: IVPB; Infused Over: 1 iw hrs; Site: left antecubital; 20:15 Follow up: IV Status: Completed infusion iw 19:23 Drug: predniSONE PO 20 mg PO once Route: PO; iw 19:35 Follow up: Response: No adverse reaction iw 19:44 Drug: Levalbuterol Inhalation 2.5 mg Inhalation once Route: Inhalation; jb4 Disposition Summary: 08/23/23 19:33 Discharge Ordered Notes: Location: Home que Problem: new que Symptoms: have improved que Condition: Fair que Diagnosis - Cough que - Cough variant asthma que - Acute upper respiratory infection, unspecified que - Acute bronchospasm que - Pneumonia due to other specified bacteria - RIGHT LOWER que Followup: que - With: Missy Fernandez - When: 2 - 3 days - Reason: Recheck today's complaints, Continuance of care, Re-evaluation by your physician Followup: que - With: Lane Prado MD - When: 2 - 3 days - Reason: Recheck today's complaints, Re-evaluation by your physician Discharge Instructions: - Discharge Summary Sheet que - Bronchospasm, Adult que - Community-Acquired Pneumonia, Adult que - Upper Respiratory Infection, Adult que - Cool Mist Vaporizer que - How to Use an Incentive Spirometer que - Upper Respiratory Infection, Adult, [id number] que - Cough, Adult, [id number] que - How to Use a Nebulizer, Adult que - Bronchospasm, Adult, [id number]-[id number] que - Cough, Adult que Forms: - Medication Reconciliation Form que - Thank You Letter que - Antibiotic Education que - Prescription Opioid Use que - Patient Portal Instructions [facility] - Leadership Thank You Letter [facility] Prescriptions: - albuterol sulfate 90 mcg/actuation Inhalation HFA Aerosol Inhaler - inhale 2 puff INHALATION route every 4 to 6 hours; 2 unit; Refills: 0, Product que Selection Permitted - Tessalon Perles 100 mg Oral capsule - take 2 capsule ORAL route every 8 hours As needed; 30 capsule; Refills: 0, que Product Selection Permitted - Albuterol Sulfate 2.5 mg /3 mL (0.083 %) Inhalation Solution for Nebulization - inhale 1 unit NEBULIZATION route every 4-6 hours As needed; 60 unit; Refills: que 0, Product Selection Permitted - Prednisone 20 mg Oral Tablet - take 2 tablets ORAL route once daily for 5 days; 10 tablet; Refills: 0, Product que Selection Permitted - Guaifenesin AC 10-100 mg/5 mL Oral liquid - take 10 milliliters ORAL route every 4 hours As needed; 200 milliliter; que Refills: 0, Product Selection Permitted - levofloxacin 750 mg Oral tablet - take 1 tablet ORAL route once daily; 9 tablet; Refills: 0, Product Selection que Permitted Signatures: Dispatcher [employer] Nik Naqvi MD MD cha Williams, Irene, RN RN Cassidy Khoury RN RN Ulysses Monson RN RN jb4 Brigid Hale RN RN ko1 Corrections: (The following items were deleted from the chart) 16:52 16:51 PMHx: Diabetes mellitus; ko1 ko1
--- NOTE | 2023-08-23 19:33 | ER ---
Nurse's Notes [facility] Name: Aravind [facility] Age: 62 yrs Sex: Male : 1960 Arrival Date: 08/23/2023 Time: 16:25 Bed 4 Private MD: Missy Fernandez Diagnosis: Cough;Cough variant asthma;Acute upper respiratory infection, unspecified;Acute bronchospasm;Pneumonia due to other specified bacteria-RIGHT LOWER Presentation: 08/22 16:50 Chief complaint: Patient states: cough, congestion, breathing difficulty x 2 weeks, was ko1 prescribed tessalon pearls and medrol pack and has not had any improvement. Coronavirus screen: At this time, the client does not indicate any symptoms associated with coronavirus-19. Ebola Screen: No symptoms or risks identified at this time. Initial Sepsis Screen: Does the patient meet any 2 criteria? No. Patient's initial sepsis screen is negative. Does the patient have a suspected source of infection? No. Patient's initial sepsis screen is negative. Risk Assessment: Do you want to hurt yourself or someone else? Patient reports no desire to harm self or others. Onset of symptoms is unknown. 16:50 Method Of Arrival: Ambulatory ko1 16:50 Acuity: TED 3 ko1 Triage Assessment: 16:51 General: Appears in no apparent distress. Behavior is calm, cooperative, appropriate ko1 for age. Pain: Denies pain. Respiratory: Reports shortness of breath pain with cough Onset: The symptoms/episode began/occurred gradually, the patient has moderate shortness of breath. Historical: - Allergies: 16:51 Amoxicillin; ko1 16:51 Dilaudid; ko1 - PMHx: 16:51 Back injury; coronary atherosclerosis; Hypercholesterolemia; Hypertensive disorder; ko1 Kidney stone; - PSHx: 16:51 back; Cholecystectomy; knee; hernia; Shoulder; ko1 - Immunization history:: Adult Immunizations up to date. - Social history:: Smoking status: Patient denies any tobacco usage or history of. Screenin:40 [facility] ED Fall Risk Assessment (Adult) History of falling in the last 3 months, hb including since admission No falls in past 3 months (0 pts) Confusion or Disorientation No (0 pts) Intoxicated or Sedated No (0 pts) Impaired Gait No (0 pts) Mobility Assist Device Used No (0 pt) Altered Elimination No (0 pt) Score/Fall Risk Level 0 - 2 = Low Risk Oriented to surroundings, Maintained a safe environment, Educated pt \T\ family on fall prevention, incl call for assistance when getting out of bed. Abuse screen: Denies threats or abuse. Denies injuries from another. Nutritional screening: No deficits noted. Tuberculosis screening: No symptoms or risk factors identified. Assessment: 17:41 General: Appears in no apparent distress. uncomfortable, ill, Behavior is calm, hb cooperative. Pain: Denies pain. Neuro: Level of Consciousness is awake, alert, obeys commands, Oriented to person, place, time, situation. Cardiovascular: Patient's skin is warm and dry. Rhythm is regular. Respiratory: Reports shortness of breath cough that is Airway is patent Respiratory effort is even, unlabored, Respiratory pattern is regular, symmetrical, Breath sounds with wheezes. GI: No signs and/or symptoms were reported involving the gastrointestinal system. : No signs and/or symptoms were reported regarding the genitourinary system. EENT: No signs and/or symptoms were reported regarding the EENT system. Derm: Skin is pink, warm \T\ dry. Musculoskeletal: No signs and/or symptoms reported regarding the musculoskeletal system. 18:14 Reassessment: Patient appears in no apparent distress at this time. Patient and/or iw family updated on plan of care and expected duration. Pain level reassessed. pt remains on breathing treatment, call light in reach. 19:23 Reassessment: Patient appears in no apparent distress at this time. Patient and/or iw family updated on plan of care and expected duration. Pain level reassessed. Patient is alert, oriented x 3, equal unlabored respirations, skin warm/dry/pink. Patient states feeling better. Patient states symptoms have improved. 20:16 Reassessment: Patient appears in no apparent distress at this time. Patient and/or jb4 family updated on plan of care and expected duration. Pain level reassessed. Patient is alert, oriented x 3, equal unlabored respirations, skin warm/dry/pink. Vital Signs: 16:50 BP 146 / 78; Pulse 73; Resp 20; Temp 97.3; Pulse Ox 97% on R/A; ko1 19:24 BP 139 / 65; Pulse 78; Resp 19; Pulse Ox 97% on R/A; iw 20:16 BP 136 / 60; Pulse 88; Resp 16; Pulse Ox 100% on R/A; jb4 ED Course: 16:27 Patient arrived in ED. mr 16:27 Missy Fernandez is Private Physician. mr 16:51 Triage completed. ko1 16:51 Arm band placed on left wrist. 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 16:57 Nik Vega MD is Attending Physician. que 17:10 First set of blood cultures drawn by me. hb 17:30 XRAY Chest (1 view) In Process Unspecified. EDMS 17:32 Radha Donovan, RN is Primary Nurse. iw 17:32 Initial lab(s) drawn, by me, sent to lab. Second set of blood cultures drawn by me. hb Patient maintains SpO2 saturation greater than 95% on room air. 17:38 Basic Metabolic Panel Sent. hb 17:38 CBC with Diff Sent. hb 17:38 LFT's Sent. hb 17:38 Magnesium Sent. hb 17:38 NT PRO-BNP Sent. hb 17:39 Provided Education on: tests, result times. Client placed on continuous cardiac and hb pulse oximetry monitoring. NIBP monitoring applied. back feeder plywood layup line on. Pulse ox on. NIBP on. 17:39 PT-INR Sent. hb 17:39 Troponin HS Sent. hb 17:39 Lactate w/ 2H reflex if indic. Sent. hb 17:39 Blood Culture Adult (2) Sent. hb 17:39 Inserted saline lock: 20 gauge in left antecubital area, using aseptic technique. Blood hb collected. 17:40 Patient has correct armband on for positive identification. hb 17:48 EKG done, by ED staff, reviewed by Nik Vega MD. hb 18:51 Warm blanket given. [id number] 19:18 CT Chest For PE Angio In Process Unspecified. EDMS 19:24 No provider procedures requiring assistance completed. iw 19:32 Missy Fernandez is Referral Physician. que 19:32 Lane Prado MD is Referral Physician. que 20:16 IV discontinued, intact, bleeding controlled, No redness/swelling at site. Pressure jb4 dressing applied. Administered Medications: 17:24 Not Given (Duplicate Order): [id number] mg 100 ml IVPB once over 60 mins que 17:38 Drug: NS 0.9% IV 1000 ml IV at 1 bolus Per protocol; 1000 mL bolus Route: IV; Rate: 1 hb bolus; Site: left antecubital; 19:00 Follow up: IV Status: Completed infusion iw 17:38 Drug: levofloxacin IVPB 750 mg 150 ml IVPB once over 90 mins Volume: 150 ml; Route: hb IVPB; Infused Over: 90 mins; Site: left antecubital; 19:00 Follow up: IV Status: Completed infusion iw 17:59 Drug: Levalbuterol Inhalation 3.75 mg Inhalation once Route: Inhalation; iw 17:59 Drug: Ipratropium Inhalation Aerosol 0.5 mg Inhalation once Route: Inhalation; iw 18:00 Drug: MethylPrednisoLONE IVP 125 mg IVP once Route: IVP; Site: left antecubital; hb 19:23 Follow up: Response: No adverse reaction iw 18:00 Drug: predniSONE PO 40 mg PO once Route: PO; hb 19:23 Follow up: Response: No adverse reaction iw 18:01 Drug: Tussionex Pennkinetic ER PO Suspension 5 ml PO once Route: PO; hb 19:23 Follow up: Response: Marked relief of symptoms iw 19:23 Drug: Magnesium Sulfate IVPB 2 grams IVPB once over 1 hrs Route: IVPB; Infused Over: 1 iw hrs; Site: left antecubital; 20:15 Follow up: IV Status: Completed infusion iw 19:23 Drug: predniSONE PO 20 mg PO once Route: PO; iw 19:35 Follow up: Response: No adverse reaction iw 19:44 Drug: Levalbuterol Inhalation 2.5 mg Inhalation once Route: Inhalation; jb4 Medication: 17:42 VIS not applicable for this client. Outcome: 19:33 Discharge ordered by . que 20:16 Discharged to home ambulatory, jb4 20:16 Condition: stable 20:16 Discharge instructions given to patient, Instructed on discharge instructions, follow up and referral plans. no drinking with medication, no driving heavy equipment, medication usage, Demonstrated understanding of instructions, follow-up care, medications, Prescriptions given X 7 20:17 Patient left the ED. jb4 Signatures: Dispatcher [employer] EDNik Pichardo MD MD cha Rivera, Mary, Reg Reg mr Radha Donovan RN RN Cassidy Khoury RN RN Ulysses Monson RN RN jb4 Brigid Hale RN RN ko1 Kadeem Tamayo [email or web address] Corrections: (The following items were deleted from the chart) 16:52 16:51 PMHx: Diabetes mellitus; ko1 ko1
[2023-08-23 20:36] VITALS: BP 136/60; TEMP 97.3; O2SAT 100
--- NOTE | 2023-08-25 14:20 | EKG ---
Test Date: 2023-08-23 Test Time: 16:48:57 Process Manager: HB MEASUREMENT RESULTS: Intervals: Rate: 59 MD: 164 QRSD: 114 QT: 426 QTc: 421 [place]: P: 41 MD: 164 QRS: 6 T: 29 INTERPRETIVE STATEMENTS: Sinus bradycardia Otherwise normal ECG Compared to ECG 06/18/2023 13:42:36 Incomplete right bundle-branch block no longer present T-wave abnormality no longer present Electronically Signed On 08-25-23 14:14:47 CDT by Anirudh Pan
== END ==
LOC: ER 16:25
DX: J45.991 Cough variant asthma (principal); J15.8 Pneumonia due to other specified bacteria; J06.9 Acute upper respiratory infection, unspecified; Z11.52 Encounter for screening for COVID-19; I10 Essential (primary) hypertension; Z88.1 Allergy status to other antibiotic agents; Z88.5 Allergy status to narcotic agent
CPT/HCPCS: 96365; 96367; 93005; 87040 ×2; 85025; 80048; 36415; 83735; 85610; 80076; 83605; 84484; 83880; 71275; 71045; 96375; 99285; Q9967; J7512 ×2; J3475; J7614 ×2; J7644; J2930; J7030

== ENCOUNTER 2023-08-25 03:11 | Inpatient (IN) | payer OTHER ==
[2023-08-25 03:47] LABS: Absolute Eosinophils 0.1 K/uL (0-0.5); Absolute Lymphocytes (CBC) 1.3 K/uL (0.7-4.9); Absolute Monocytes 0.8 K/uL (0.1-1.3); Absolute Neutrophil 6.5 K/uL (1.8-8.0); Basophils % 0.4 % (0-1.3); Eosinophils % 1.4 % (0-4.4); Hematocrit 37.6 % (39.6-49.0); Hemoglobin 13.1 g/dL (13.6-17.9); Lymphocytes % 15.3 % (15.3-44.8); MCH 30.5 pg (27.0-35.0); MCHC 34.8 g/dL (32.0-36.0); MCV 87.7 fL (80-100); MPV 7.9 fL (7.6-11.3); Monocytes % 9.5 % (3.3-12.3); Neutrophils % 73.4 % (41.7-73.7); Nucleated Red Blood Cells % 0.1 % (0-0); Platelets 224 thou/uL (152-406); RBC Red Blood Cell Count 4.28 M/uL (4.33-5.43); Red Cell Distribution Width 15.4 % (12.1-15.2)
[2023-08-25 03:53] LABS: PT Prothrombin Time 12.2 SECONDS (9.5-12.5); PTT, Activated Partial Thromb 26.6 SECONDS (24.3-36.9); Protime INR 1.11
[2023-08-25 03:57] LABS: SARS-CoV-2 Antigen CONTROL BLUE LINE VIS/BG OK; SARS-CoV-2 Antigen Rapid Res Negative (Negative)
[2023-08-25 04:04] LABS: Albumin 3.6 g/dL (3.4-5.0); Albumin/Globulin Ratio 1.1 (1.1-1.8); Anion Gap 11.6 mEq/L (5.0-15.0); Bilirubin Total 0.6 mg/dL (0.2-1.0); Globulin 3.3 g/dL (2.3-3.5); Potassium 3.6 mEq/L (3.5-5.1); Protein, Total 6.9 g/dL (6.4-8.2); Troponin High Sensitivity 6.4 pg/mL (<58.9)
[2023-08-25] MEDS ORDERED: Levofloxacin500mg IV 500 MG/100 ML BAG IV ONE (05:03)
--- NOTE | 2023-08-25 05:14 | ER ---
Nurse's Notes [facility] Name: Aravind Tyler Age: 62 yrs Sex: Male : 1960 Arrival Date: 08/25/2023 Time: 03:11 Bed 4 Private MD: Diagnosis: Pneumonia, unspecified organism;Syncope Presentation: 08/24 03:34 Chief complaint: Spouse and/or significant other states: He was recently discharged jb4 with diagnoses of pneumonia. Was getting up to go into the living room. Fell at some point. Came into the bedroom tapping me on the back with blood on his face. Coronavirus screen: At this time, the client does not indicate any symptoms associated with coronavirus-19. Ebola Screen: No symptoms or risks identified at this time. Initial Sepsis Screen: Does the patient meet any 2 criteria? No. Patient's initial sepsis screen is negative. Does the patient have a suspected source of infection? No. Patient's initial sepsis screen is negative. Risk Assessment: Do you want to hurt yourself or someone else? Patient reports no desire to harm self or others. Onset of symptoms was August 25, 2023. Transition of care: patient was not received from another setting of care. 03:34 Method Of Arrival: Stretcher jb4 03:34 Acuity: TED 3 jb4 05:01 Initial Sepsis Screen: Does the patient meet any 2 criteria?. lg3 Triage Assessment: 03:36 General: Appears in no apparent distress. uncomfortable, Behavior is calm, cooperative, jb4 appropriate for age. Pain: Complains of pain in forehead and nose Pain does not radiate. Pain currently is 8 out of 10 on a pain scale. EENT: No signs and/or symptoms were reported regarding the EENT system. Neuro: Level of Consciousness is awake, alert, obeys commands, Oriented to person, place, time, situation. Cardiovascular: Patient's skin is warm and dry. Respiratory: Airway is patent Respiratory effort is even, unlabored, Respiratory pattern is regular, symmetrical. GI: No signs and/or symptoms were reported involving the gastrointestinal system. : No signs and/or symptoms were reported regarding the genitourinary system. Derm: Skin is pink, warm \T\ dry. Musculoskeletal: Circulation, motion, and sensation intact. Range of motion: intact in all extremities. Injury Description: Laceration sustained to bridge of the nose. Historical: - Allergies: 03:36 Amoxicillin; jb4 03:36 Dilaudid; jb4 - PMHx: 03:36 Back injury; coronary atherosclerosis; Hypercholesterolemia; Hypertensive disorder; jb4 Kidney stone; - PSHx: 03:36 Cholecystectomy; back; hernia; knee; Shoulder; jb4 - Immunization history:: Adult Immunizations up to date. - Social history:: Smoking status: Patient denies any tobacco usage or history of. - Family history:: not pertinent. - Hospitalizations: : No recent hospitalization is reported. Screenin:37 [facility] ED Fall Risk Assessment (Adult) History of falling in the last 3 months, jb4 including since admission Yes- single mechanical fall (1 pt) Confusion or Disorientation No (0 pts) Intoxicated or Sedated No (0 pts) Impaired Gait Yes (1 pt) Mobility Assist Device Used No (0 pt) Altered Elimination No (0 pt) Score/Fall Risk Level 0 - 2 = Low Risk Oriented to surroundings, Maintained a safe environment. Abuse screen: Denies threats or abuse. Nutritional screening: No deficits noted. Tuberculosis screening: No symptoms or risk factors identified. Assessment: 03:37 Reassessment: see triage note. jb4 04:19 Reassessment: Patient appears in no apparent distress at this time. Patient and/or jb4 family updated on plan of care and expected duration. Pain level reassessed. Patient is alert, oriented x 3, equal unlabored respirations, skin warm/dry/pink. 05:59 Reassessment: no orders in Subject Company at this time. 8 07:10 Reassessment: report to devorah bower. bm8 Vital Signs: 03:34 BP 134 / 74; Pulse 69; Resp 18; Temp 98(O); Pulse Ox 99% on R/A; Weight 138.8 kg (M); jb4 04:19 BP 143 / 76; Pulse 64; Resp 16; Pulse Ox 96% on R/A; jb4 05:53 BP 151 / 91; Pulse 67; Resp 17; Temp 98; Pulse Ox 96% on R/A; bm8 06:59 BP 134 / 75; Pulse 67; Resp 16; Temp 98; Pulse Ox 97% ; Pain 6/10; bm8 06:59 Pain Scale: Adult bm8 ED Course: 03:13 Patient arrived in ED. gm2 03:13 Hood Batista MD is Attending Physician. rn 03:27 Initial lab(s) drawn, by me, sent to lab. First set of blood cultures drawn by me, EKG km8 done, by ED staff, reviewed by Hood Batista MD COVID swab sent to lab. Flu and/or RSV swab sent to lab. Inserted saline lock: 20 gauge in right hand, using aseptic technique. Blood collected. 03:36 Triage completed. jb4 03:36 Arm band placed on right wrist. jb4 03:37 Chest Single View XRAY In Process Unspecified. EDMS 03:37 Patient has correct armband on for positive identification. Bed in low position. Call jb4 light in reach. Side rails up X 1. Provided Education on: Plan of care. 03:37 BNP Sent. km8 03:38 Troponin High Sensitivity Sent. km8 03:38 SARS RAPID Sent. km8 03:38 Flu Sent. km8 03:38 CBC with Diff Sent. km8 03:38 CMP Sent. km8 03:38 Lactate w/ 2H reflex if indic. Sent. km8 03:38 Protime (+inr) Sent. km8 03:38 Ptt, Activated Sent. km8 03:[address] km8 04:04 CT Head C Spine In Process Unspecified. EDMS 04:04 CT Facial Bones W/O Con In Process Unspecified. EDMS 05:13 Hector Reid is Hospitalizing Provider. rn 06:59 Jerry Alatorre, RN is Primary Nurse. bm8 07:50 No provider procedures requiring assistance completed. Patient admitted, IV remains in ko1 place. Administered Medications: 05:08 Drug: levofloxacin IVPB 500 mg 100 ml IVPB once over 60 mins Volume: 100 ml; Route: jb4 IVPB; Infused Over: 60 mins; Site: right wrist; 07:02 Follow up: IV Status: Completed infusion; IV Intake: 100ml bm8 05:24 Drug: Acetaminophen PO 500 mg PO once Route: PO; bm8 05:53 Follow up: Response: No adverse reaction bm8 07:02 Follow up: Response: No adverse reaction bm8 06:01 Drug: Ondansetron IVP 4 mg IVP once; over 2 minutes Route: IVP; Site: left antecubital; bm8 07:02 Follow up: Response: No adverse reaction bm8 Medication: 03:37 VIS not applicable for this client. jb4 Intake: 07:02 IV: 100ml; Total: 100ml. bm8 Outcome: 05:13 Decision to Hospitalize by Provider. rn 07:50 Admitted to Med/surg accompanied by nurse, via wheelchair, room 425, with chart, koDionne 07:50 Condition: stable 07:50 Instructed on the need for admit, 08:14 Patient left the ED. ko1 Signatures: Dispatcher [employer] EDMS Hood Batista MD MD rn Bryson, James, RN RN jb4 Reyna Velasco RN RN lg3 Brigid Hale, RN RN ko1 Leela Nolan gm2 Adali Grey, RN RN km8 Jerry Alatorre, RN RN bm8
--- NOTE | 2023-08-25 05:14 | EDPHYS ---
Physician Documentation [facility] Name: Aravind Tyler Age: 62 yrs Sex: Male : 1960 Arrival Date: 08/25/2023 Time: 03:11 Bed 4 Private MD: ED Physician Hood Batista HPI: 08/24 03:38 This 62 yrs old Male presents to ER via Stretcher with complaints of Head Injury With rn LOC-Adult, Headache, Cough, Syncope. 03:38 The patient has experienced syncope. Onset: The symptoms/episode began/occurred just rn prior to arrival. Duration: This was a single episode. Associated injury: Head/face: swelling, tenderness. Associated signs and symptoms: Pertinent negatives: abdominal pain, chest pain, seizure, vomiting. Current symptoms: headache. The patient has not experienced similar symptoms in the past. The patient has been recently seen at the [facility] Emergency Department. Patient recently seen in our emergency room, diagnosed with pneumonia yesterday. Sent home. Patient returns after coughing fit had likely syncopal episode. Woke up on the ground and did not know how he got there. Injury to face. Reports mild headache, cannot stop coughing, shortness of breath. Denies any injury other than face/head.. Historical: - Allergies: 03:36 Amoxicillin; jb4 03:36 Dilaudid; jb4 - PMHx: 03:36 Back injury; coronary atherosclerosis; Hypercholesterolemia; Hypertensive disorder; jb4 Kidney stone; - PSHx: 03:36 Cholecystectomy; back; hernia; knee; Shoulder; jb4 - Immunization history:: Adult Immunizations up to date. - Social history:: Smoking status: Patient denies any tobacco usage or history of. - Family history:: not pertinent. - Hospitalizations: : No recent hospitalization is reported. ROS: 03:38 Constitutional: Negative for fever, chills, and weight loss, Eyes: Negative for injury, rn pain, redness, and discharge, ENT: Positive for abrasion to nasal bridge Neck: Negative for injury, pain, and swelling, Cardiovascular: Negative for chest pain, palpitations, and edema, Respiratory: Positive for cough and shortness of breath Abdomen/GI: Negative for abdominal pain, nausea, vomiting, diarrhea, and constipation, MS/Extremity: Negative for injury and deformity, Skin: Negative for injury, rash, and discoloration, Neuro: Positive for headache and generalized weakness Exam: 03:38 Constitutional: This is a well developed, well nourished patient who is awake, alert, rn and in no acute distress. Head/Face: Normocephalic, small abrasion nasal bridge, no active bleeding, no suturable laceration Eyes: Pupils equal round and reactive to light, extra-ocular motions intact. ENT: Dry mucous membranes, no stridor Neck: No midline cervical tenderness Chest/axilla: Normal chest wall appearance and motion. Nontender with no deformity. No crepitus Cardiovascular: Regular rate and rhythm. No pulse deficits. Respiratory: Mild tachypnea, diminished breath sounds bilateral bases. No retractions Abdomen/GI: Soft, nontender, no ecchymosis or discoloration Back: No spinal tenderness. MS/ Extremity: Pulses equal, no cyanosis. Neurovascular intact. Full, normal range of motion. Equal circumference. Neuro: Awake and alert, GCS 15, oriented to person, place, time, and situation. Cranial nerves II-XII grossly intact. Motor strength 4/5 in all extremities. Sensory grossly intact. Vital Signs: 03:34 BP 134 / 74; Pulse 69; Resp 18; Temp 98(O); Pulse Ox 99% on R/A; Weight 138.8 kg (M); jb4 04:19 BP 143 / 76; Pulse 64; Resp 16; Pulse Ox 96% on R/A; jb4 05:53 BP 151 / 91; Pulse 67; Resp 17; Temp 98; Pulse Ox 96% on R/A; bm8 06:59 BP 134 / 75; Pulse 67; Resp 16; Temp 98; Pulse Ox 97% ; Pain 6/10; bm8 06:59 Pain Scale: Adult bm8 MDM: 03:13 Patient medically screened. rn 03:38 ED course: Patient required multiple nurse aid in waiting room, nearly had another rn syncopal episode during coughing fit and lobby.. 05:11 Differential Diagnosis: cardiac arrhythmia, vasovagal episode, cough syncope. rn pneumonia. Data reviewed: vital signs, nurses notes, old medical records, lab test result(s), EKG, radiologic studies, plain films, and as a result, I will admit patient. Consideration of Admission/Observation Patient was admitted/placed on observation. Escalation of care including admission/observation considered. Independent interpretation of the following test(s) in the Emergency Department X-Ray: My interpretation is Chest x-ray images negative for pneumonia or pneumothorax. Counseling: I had a detailed discussion with the patient and/or guardian regarding the historical points, exam findings, and any diagnostic results supporting the discharge/admit diagnosis, lab results, radiology results, the need for further work-up and treatment in the hospital. Response to treatment: the patient's symptoms have mildly improved after treatment, and as a result, I will admit patient. 08/24 03:25 Order name: Blood Culture Adult (2) rn 08/24 03:25 Order name: CBC with Diff; Complete Time: 04:12 rn 08/24 03:25 Order name: CMP; Complete Time: 04:12 rn 08/24 03:25 Order name: Lactate w/ 2H reflex if indic.; Complete Time: 04:12 rn 08/24 03:25 Order name: Protime (+inr); Complete Time: 04:12 rn 08/24 03:25 Order name: Ptt, Activated; Complete Time: 04:12 rn 08/24 03:26 Order name: Flu; Complete Time: 04:45 rn 08/24 03:26 Order name: SARS RAPID; Complete Time: 04:12 rn 08/24 03:26 Order name: Troponin High Sensitivity; Complete Time: 04:12 rn 08/24 03:26 Order name: BNP; Complete Time: 04:12 rn 08/24 03:41 Order name: Glucose, Ancillary Testing; Complete Time: 03:46 EDMS 08/24 06:48 Order name: CBC with Automated Diff EDMS 08/24 06:48 Order name: CBC with Automated Diff EDMS 08/24 06:48 Order name: Comprehensive Metabolic Panel EDMS 08/24 06:48 Order name: Comprehensive Metabolic Panel EDMS 08/24 06:48 Order name: Lipid Profile EDMS 08/24 06:48 Order name: Lipid Profile EDMS 08/24 06:48 Order name: Magnesium EDMS 08/24 06:48 Order name: Magnesium EDMS 08/24 06:48 Order name: Phosphorus EDMS 08/24 06:48 Order name: Phosphorus EDMS 08/24 03:25 Order name: Chest Single View XRAY rn 08/24 03:25 Order name: CT Head C Spine rn 08/24 03:25 Order name: CT Facial Bones W/O Con rn 08/24 06:50 Order name: Carotid Artery Bilateral; Complete Time: 14:21 EDMS 08/24 03:25 Order name: EKG; Complete Time: 03:25 rn 08/24 03:25 Order name: Accucheck; Complete Time: 03:38 rn 08/24 03:25 Order name: Cardiac monitoring; Complete Time: 03:38 rn 08/24 03:25 Order name: EKG - Nurse/Tech; Complete Time: 03:38 rn 08/24 03:25 Order name: IV Saline Lock - Large Bore; Complete Time: 03:38 rn 08/24 03:25 Order name: Labs collected and sent; Complete Time: 03:38 rn 08/24 03:25 Order name: O2 Per Protocol; Complete Time: 03:38 rn 08/24 03:25 Order name: O2 Sat Monitoring; Complete Time: 03:38 rn 08/24 03:25 Order name: Vital Signs; Complete Time: 03:38 rn 08/24 06:01 Order name: Wound Care: clean nasal wound, apply steri-strips; Complete Time: 07:03 rn Administered Medications: 05:08 Drug: levofloxacin IVPB 500 mg 100 ml IVPB once over 60 mins Volume: 100 ml; Route: jb4 IVPB; Infused Over: 60 mins; Site: right wrist; 07:02 Follow up: IV Status: Completed infusion; IV Intake: 100ml bm8 05:24 Drug: Acetaminophen PO 500 mg PO once Route: PO; bm8 05:53 Follow up: Response: No adverse reaction bm8 07:02 Follow up: Response: No adverse reaction bm8 06:01 Drug: Ondansetron IVP 4 mg IVP once; over 2 minutes Route: IVP; Site: left antecubital; bm8 07:02 Follow up: Response: No adverse reaction bm8 Disposition Summary: 08/25/23 05:13 Hospitalization Ordered Notes: Hospitalization Status: Inpatient Admission rn Provider: Hector Reid rn [facility] rn Condition: Stable rn Problem: new rn Symptoms: have improved rn Bed/Room Type: Standard rn Room Assignment: 425(08/25/23 06:49) cg Diagnosis - Pneumonia, unspecified organism rn - Syncope rn Forms: - Medication Reconciliation Form rn - SBAR form rn - Leadership Thank You Letter rn Signatures: Dispatcher [employer] Sona Fair, CONTINUOUS MINING OPERATOR-C CONTINUOUS MINING OPERATOR-Csnw Hood Batista MD MD rn Garcia, Cindy, RN RN cg Bryson, James, RN RN jb4 Jerry Alatorre RN RN bm8 Corrections: (The following items were deleted from the chart) 06:49 05:13 rn
[2023-08-25] MEDS ORDERED: ACETAMINOPHEN 500 MG TAB ONE (05:21)
[2023-08-25] MEDS ORDERED: ONDANSETRON 4 MG/2 ML VIAL ONE (05:47)
[2023-08-25] MEDS: ALBUTEROL 2.5 MG/3 ML NEB SOL NEB SCH (07:00)
[2023-08-25] MEDS: IPRATROPIUM BROM 0.5MG/2.5ML NEB SCH (07:00)
[2023-08-25] MEDS: METHYLPRED NA SUC 60 MG in NA CHLORIDE 0.9% 100 ML IV SCH (07:00)
[2023-08-25] MEDS: INSULIN REGULAR (HUMAN) 100 UNIT/ML SQ SCH (07:30)
--- NOTE | 2023-08-25 07:44 | RAD REPORT ---
EXAM DESCRIPTION: US - CP - 08/25/2023 7:27 am CLINICAL HISTORY: syncope Headache, drowsiness COMPARISON: Head C Spine Mpr Wo Con dated 08/25/2023 TECHNIQUE: Real-time sonographic evaluation of both carotid systems was performed. Doppler interroga tion was performed with waveform tracing bilaterally. FINDINGS: Normal high resistance waveforms are noted in both external carotid arteries. The common c arotid arteries and internal carotid arteries show normal low resistance waveforms. No significant plaque formation is seen. Peak systolic and end diastolic velocity values and the ICA/ CCA ratios are in the non-hemodynamically significant range. Antegrade flow seen in both vertebral arteries. IMPRESSION: No significant atherosclerotic changes noted. No evidence of a hemodynamically significant stenosis.
[2023-08-25 08:33] VITALS: O2SAT 97
[2023-08-25] MEDS: MUPIROCIN 2% OINT 22GM TUBE TOP SCH (09:00)
[2023-08-25] MEDS: ENOXAPARIN 40 MG/0.4 ML SQ SCH (09:26)
[2023-08-25] MEDS: NA CHLORIDE 0.9% 1,000 ML IV SCH (09:27)
[2023-08-25] MEDS: HYDROCODONE/CHLORPHEN 5 ML/OSYR PO PRN (09:31)
--- NOTE | 2023-08-25 10:37 | P.CNS ---
Date of Consult: 08/25/23 Chief Complaint: Syncope History of Present Illness: Patient with PMH of HTN, Angina, presented with syncopal episode after he had an extensive coughing spell, no other associated symptoms, he report one similar episode in the past after having gall bladder surgery, no more episodes, no chest pain, no palpitations. Allergies amoxicillin Allergy (Verified 05/15/23 20:37) Itching hydromorphone [From Dilaudid] Allergy (Verified 05/15/23 20:37) Itching Home Medications: Finasteride 5 mg PO BEDTIME 05/15/23 Gabapentin [Neurontin*] 800 mg PO TID 05/15/23 Tamsulosin [Flomax*] 0.4 mg PO DAILY 05/15/23 Amlodipine [Norvasc*] 5 mg PO DAILY 06/18/23 Aspirin [Aspirin EC] 81 mg PO DAILY 06/18/23 Fluoxetine HCl [Prozac] 80 mg PO DAILY 06/18/23 Omeprazole 20 mg PO DAILY 06/18/23 Prednisolone Acetate/Pf [Prednisolone Acet 1% Eye Drop] 1 drop EACH EYE DAILY 06/18/23 Ranolazine [Ranolazine ER] 500 mg PO BID 06/18/23 lamoTRIgine [Subvenite] 25 mg PO SEECOM 06/18/23 lamoTRIgine [Subvenite] 50 mg PO DAILY 06/18/23 - Past Medical/Surgical History Diabetic: No -: Hypertension -: Hyperlipidemia -: CAD -: Hypoglycemia -: Cholecystectomy -: Hernia repair -: Knee surgery, shoulder surgery Psychosocial/ Personal History: Lives at home with family - Family History Mother Medical History: Heart disease - Social History Smoking Status: Unknown if ever smoked Alcohol use: No CD- Drugs: No Caffeine use: Yes Review of Systems 10-point ROS is otherwise unremarkable Physical Examination Temp Pulse Resp BP Pulse Ox 97.4 F 63 16 131/63 95 08/25/23 09:00 08/25/23 09:00 08/25/23 09:00 08/25/23 09:00 08/25/23 09:00 General: Alert, Oriented x3 HEENT: Atraumatic Neck: Supple Respiratory: Clear to auscultation bilaterally Cardiovascular: No edema, Regular rate/rhythm Gastrointestinal: Normal bowel sounds Laboratory Data (last 24 hrs) 08/25/23 08/25/2308/24/24 03:27 03:27 03:27 WBC 8.80 Hgb 13.1 L Hct 37.6 L Plt Count 224 PT 12.2 INR 1.11 APTT 26.6 Sodium 138 Potassium 3.6 BUN 30 H Creatinine 1.10 Glucose 106 Total Bilirubin 0.6 AST 44 H ALT 64 H Alkaline Phosphatase 102 - Problems (1) Syncope Current Visit: Yes Status: Acute Plan: most likely vagal after coughing episode. Tele is normal, EKG is normal advised patient that he will benefit an event monitor as outpatient anf he will schedule that. (2) HTN (hypertension) Current Visit: Yes Status: Acute Plan: Continue Norvasc 5 mg daily (3) Chest pain Current Visit: Yes Status: Acute Plan: patient denies having chest pain at this time but report chronic angina. continue Ranexa 500 mg po BID
--- NOTE | 2023-08-25 13:47 | RAD REPORT ---
EXAM DESCRIPTION: XR Chest 1 View AP CLINICAL HISTORY: Cough COMPARISON: Chest 1 View AP 08/23/2023 report without images CTA chest 08/23/2023 report without images TECHNIQUE: Chest 1 View AP FINDINGS: Trachea midline. Heart size and pulmonary vessels within normal limits. Lungs clear without evidence of consolidation, mass, or significant pulmonary edema. No significant pleural effusion or pneumothorax. Bones unremarkable. IMPRESSION: Unremarkable chest radiograph. Electronically signed by: Tom Snyder MD 08/25/2023 03:55 AM CDT Due to temporary technical issues with the PACS/Fluency reporting system, reports are being signed by the in house radiologist without review as a courtesy to ensure prompt reporting. The interpreting r adiologist is fully responsible for the content of the report.
--- NOTE | 2023-08-25 13:49 | RAD REPORT ---
EXAM DESCRIPTION: Facial Bones W/ Mpr (accession [id number]), Head C Spine Mpr Wo Con (accession [id number]) CLINICAL HISTORY: FACIAL PAIN COMPARISON: 06/18/2023 TECHNIQUE: Axial CT of the head obtained from the skull apex to the skull base without contrast. . A xial CT images of the facial bones obtained without contrast. Axial CT images of the cervical spine o btained without contrast. This exam was performed according to our departmental dose-optimization pro gram, which includes automated exposure control, adjustment of the mA and/or kV according to patient size and/or use of iterative reconstruction technique. FINDINGS: Head CT: No acute intracranial hemorrhage identified. No mass, mass effect, shift of the midline, abnormal ext ra-axial fluid collection or CT evidence of acute ischemic change identified. The ventricular system and sulcal spaces are mildly enlarged compatible with mild cerebral atrophy. Scattered areas of hyp odensity throughout the supratentorial white matter are nonspecific and may be related to chronic sma ll vessel ischemic change. No skull fracture identified. Atherosclerotic calcification of the intracranial internal carotid ar teries. Facial Bone CT: Orbits: Orbital floors and bettencourt are intact. Intraorbital contents: The globes are intact. Extraocular muscles are symmetric. No intraconal fat st randing. Nasal bones: Acute right nasal bone fracture. Maxilla: The maxillary hard palate is intact. Maxillary antral bettencourt are intact. Sinuses: Mild mucosal thickening of the paranasal sinuses. Zygomatic processes: Intact Pterygoid plates: Intact Mandible: Intact. No mandibular condylar dislocation. Skull base/cervical spine: Visualized portions of the skull base and cervical spine are intact. Visua lized mastoid air cells are well aerated. Subcutaneous soft tissues: No abnormality noted in the subcutaneous soft tissues. Neck soft tissues: No definite abnormality involving the nasopharynx, oropharynx, or hypopharynx. Fos sa of Rosenmuller are clear. Parotid glands and submandibular glands are unremarkable. No cervical ly mphadenopathy. Cervical CT : Straightening of the cervical lordosis may be secondary to patient positioning. The atlantoaxial, a tlantodental, and occipitoatlantal intervals are preserved. No fracture identified. Vertebral body height preserved. Prevertebral soft tissues are unremarkable. Mild to moderate multilevel loss of intervertebral disc height with endplate spondylosis, facet arthr opathy, and uncovertebral spurring. Posterior disc osteophyte complex at multiple levels mildly encro ach upon the anterior spinal canal. Mild neural foraminal narrowing. Degenerative pannus formation at the atlantodental articulation. Visualized skull base is intact. Visualized thyroid is unremarkable. No cervical lymphadenopathy . No pneumothorax in the visualized lung apices. IMPRESSION: 1. No acute intracranial abnormality by CT criteria. 2. Acute right nasal bone fracture. 3. No acute fracture or subluxation of the cervical spine. Electronically signed by: Del Leahy DO 08/25/2023 04:37 AM CDT M Due to temporary technical issues with the PACS/Fluency reporting system, reports are being signed by the in house radiologist without review as a courtesy to ensure prompt reporting. The interpreting r adiologist is fully responsible for the content of the report.
--- NOTE | 2023-08-25 13:51 | RAD REPORT ---
EXAM DESCRIPTION: Facial Bones W/ Mpr (accession [id number]), Head C Spine Mpr Wo Con (accession [id number]) CLINICAL HISTORY: FACIAL PAIN COMPARISON: 06/18/2023 TECHNIQUE: Axial CT of the head obtained from the skull apex to the skull base without contrast. . A xial CT images of the facial bones obtained without contrast. Axial CT images of the cervical spine o btained without contrast. This exam was performed according to our departmental dose-optimization pro gram, which includes automated exposure control, adjustment of the mA and/or kV according to patient size and/or use of iterative reconstruction technique. FINDINGS: Head CT: No acute intracranial hemorrhage identified. No mass, mass effect, shift of the midline, abnormal ext ra-axial fluid collection or CT evidence of acute ischemic change identified. The ventricular system and sulcal spaces are mildly enlarged compatible with mild cerebral atrophy. Scattered areas of hyp odensity throughout the supratentorial white matter are nonspecific and may be related to chronic sma ll vessel ischemic change. No skull fracture identified. Atherosclerotic calcification of the intracranial internal carotid ar teries. Facial Bone CT: Orbits: Orbital floors and bettencourt are intact. Intraorbital contents: The globes are intact. Extraocular muscles are symmetric. No intraconal fat st randing. Nasal bones: Acute right nasal bone fracture. Maxilla: The maxillary hard palate is intact. Maxillary antral bettencourt are intact. Sinuses: Mild mucosal thickening of the paranasal sinuses. Zygomatic processes: Intact Pterygoid plates: Intact Mandible: Intact. No mandibular condylar dislocation. Skull base/cervical spine: Visualized portions of the skull base and cervical spine are intact. Visua lized mastoid air cells are well aerated. Subcutaneous soft tissues: No abnormality noted in the subcutaneous soft tissues. Neck soft tissues: No definite abnormality involving the nasopharynx, oropharynx, or hypopharynx. Fos sa of Rosenmuller are clear. Parotid glands and submandibular glands are unremarkable. No cervical ly mphadenopathy. Cervical CT : Straightening of the cervical lordosis may be secondary to patient positioning. The atlantoaxial, a tlantodental, and occipitoatlantal intervals are preserved. No fracture identified. Vertebral body height preserved. Prevertebral soft tissues are unremarkable. Mild to moderate multilevel loss of intervertebral disc height with endplate spondylosis, facet arthr opathy, and uncovertebral spurring. Posterior disc osteophyte complex at multiple levels mildly encro ach upon the anterior spinal canal. Mild neural foraminal narrowing. Degenerative pannus formation at the atlantodental articulation. Visualized skull base is intact. Visualized thyroid is unremarkable. No cervical lymphadenopathy . No pneumothorax in the visualized lung apices. IMPRESSION: 1. No acute intracranial abnormality by CT criteria. 2. Acute right nasal bone fracture. 3. No acute fracture or subluxation of the cervical spine. Electronically signed by: Del Leahy DO 08/25/2023 04:37 AM CDT M Due to temporary technical issues with the PACS/Fluency reporting system, reports are being signed by the in house radiologist without review as a courtesy to ensure prompt reporting. The interpreting r adiologist is fully responsible for the content of the report.
--- NOTE | 2023-08-25 13:53 | P.HP ---
Certification for Inpatient Patient admitted to: Inpatient With expected LOS: >2 Midnights Patient will require the following post-hospital care: None Practitioner: I am a practitioner with admitting privileges, knowledge of patient current condition, hospital course, and medical plan of care. Services: Services provided to patient in accordance with Admission requirements found in Title 42 Section 412.3 of the Code of Federal Regulations <Sona Macias - Last Filed: 08/25/23 15:44> Patient History Date of Service: 08/25/23 Primary Care Provider: OR Reason for admission: Syncope History of Present Illness: Mr. Tyler is a 62-year-old male patient with a history of hyperlipidemia, hypertension, CAD, GERD, sleep apnea and anxiety. He states that over the last week he has had a cough which has progressively gotten worse and a low-grade fever up to 100.8. He went to the OR last week for what he thought was hayfever. He was given a course of prednisone which he has been taking for 3 days. He presented to the emergency department on Friday and after CT evaluation was sent home with neb treatments, prednisone, guaifenesin AC, and Levaquin 750 mg. Mr. Tyler presented to the emergency department today after a paroxysmal cough resulting in syncope. He struck his nose during the syncopal episode, CT reveals a fracture of the nasal bone. His emergency room evaluation was otherwise unremarkable. He denies chest pain at this time. We will admit him to the hospital for monitoring overnight and cardiology will be consulted for evaluation. Home medications list reviewed: Yes - Past Medical/Surgical History Diabetic: No -: Hypertension -: Hyperlipidemia -: CAD -: Hypoglycemia -: GERD -: Sleep apnea -: Cholecystectomy -: Hernia repair -: Knee surgery, shoulder surgery Psychosocial/ Personal History: Lives at home with family - Family History Family History: Reviewed- Non-Contributory - Family History Mother -: Heart disease - Social History Smoking Status: Never smoker Alcohol use: No CD- Drugs: No Caffeine use: Yes Place of Residence: Home <Sona Macias - Last Filed: 08/25/23 15:44> Date of Service: 08/25/23 <Nimisha Batista - Last Filed: 08/25/23 17:24> Allergies amoxicillin Allergy (Verified 05/15/23 20:37) Itching hydromorphone [From Dilaudid] Allergy (Verified 05/15/23 20:37) Itching Home Medications: Finasteride 5 mg PO BEDTIME 05/15/23 Gabapentin [Neurontin*] 800 mg PO TID 05/15/23 Amlodipine [Norvasc*] 5 mg PO DAILY 06/18/23 Aspirin [Aspirin EC] 81 mg PO DAILY 06/18/23 Fluoxetine HCl [Prozac] 80 mg PO DAILY 06/18/23 Omeprazole 20 mg PO DAILY 06/18/23 lamoTRIgine [Subvenite] 25 mg PO SEECOM 06/18/23 lamoTRIgine [Subvenite] 50 mg PO DAILY 06/18/23 Review of Systems 10-point ROS is otherwise unremarkable ENT: As per HPI Respiratory: Cough, SOB with Excertion, As per HPI Cardiovascular: As per HPI <Sona Macias - Last Filed: 08/25/23 15:44> Physical Examination - Vital Signs Temperature: 97.5 F Blood Pressure: 137/60 Pulse: 65 Respirations: 16 Pulse Ox (%): 93 - Physical Exam General: Alert, In no apparent distress, Oriented x3 HEENT: Normocephalic, PERRLA, Other (contusion to bridge of nose) Neck: Supple, 2+ carotid pulse no bruit Respiratory: Expiratory wheezes, Other (rul) Cardiovascular: No edema, Normal pulses Capillary refill: <2 Seconds Gastrointestinal: Soft and benign Musculoskeletal: No clubbing, No swelling Integumentary: Other (erythema to umbilicus) Neurological: Normal speech Lymphatics: No axilla or inguinal lymphadenopathy External genitalia: Deferred Rectal: Deferred - Studies Laboratory Data (last 24 hrs) 08/25/23 08/25/23 08/25/23 03:27 03:27 03:27 WBC 8.80 Hgb 13.1 L Hct 37.6 L Plt Count 224 PT 12.2 INR 1.11 APTT 26.6 Sodium 138 Potassium 3.6 BUN 30 H Creatinine 1.10 Glucose 106 Total Bilirubin 0.6 AST 44 H ALT 64 H Alkaline Phosphatase 102 Microbiology Data (last 24 hrs): 08/25/23 03:34 Nasopharnyx Influenza Type A Antigen Screen - Final 08/25/23 03:34 Nasopharnyx Influenza Type B Antigen Screen - Final <Sona Macias Inocente - Last Filed: 08/25/23 15:44> - Studies Laboratory Data (last 24 hrs) 08/25/23 08/25/23 08/25/23 03:27 03:27 03:27 WBC 8.80 Hgb 13.1 L Hct 37.6 L Plt Count 224 PT 12.2 INR 1.11 APTT 26.6 Sodium 138 Potassium 3.6 BUN 30 H Creatinine 1.10 Glucose 106 Total Bilirubin 0.6 AST 44 H ALT 64 H Alkaline Phosphatase 102 Microbiology Data (last 24 hrs): 08/25/23 03:34 Nasopharnyx Influenza Type A Antigen Screen - Final 08/25/23 03:34 Nasopharnyx Influenza Type B Antigen Screen - Final <Nimisha Batista - Last Filed: 08/25/23 17:24> Assessment and Plan - Plan Pneumonia: "IMPRESSION: Negative for pulmonary embolism. Mild bronchial wall thickening and nodularity in the medial right lower lobe could reflect pneumonia or pneumonitis, possibly secondary to aspiration. Dictated By: Jake Crowley MD 08/23/23" Levaquin IVPB daily Neb treatments Solumedrol 60mg iv q 8h O2 per protocol monitor labs, blood cultures pending Sleep Apnea: CPAP from Home HOB up 30 degrees Protonix 40mg IV daily Hypertension: Continue home medications (Norvasc 5mg po daily), monitor VS Hyperlipidemia: Continue home medications Stable Angina: Continue Ranexa 500mg po daily Consult Cardio Cough Syncope: Tussionex 5ml po q 12h prn cough Consult Cardio Carotid doppler - negative for acute Tele is normal, EKG is normal advised patient that he will benefit an event monitor as outpatient. He will schedule that. BPH: Finesteride and Tamsulosin per home regimen GI prophylaxis: on protonix DVT prophylaxis: Lovenox Code Status: full Discharge plan: 36-48hr Discharge Plan: Home Plan to discharge in: 24 Hours - Advance Directives Does patient have a Living Will: No Does patient have a Durable POA for Healthcare: No - Code Status/Comfort Care Code Status Assessed: Yes (Full) <Sona Macias Inocente - Last Filed: 08/25/23 15:44> - Plan Pt seen and examined. I agree with the note by the M[employer] GLACIER GUIDE. Pt is a 62 yo male with past medical history of Kidney stone, CAD, HLD, Htn and chronic back pain who presents with loss of consciousness, Headache, Cough, Syncope. Of note, pt was discharged from the ER yesterday after he was diagnosed with pneumonia. At home, pt had a syncope after a coughing spell. He woke on the ground and did not recall what happened. Pt sustained an injury on his face. On admission, lab studies show wbc 8.8, Hgb 13.1, K 3.6, Cr 1.10, Carotid ultrasound is unremarkable. CT head is unremarkable. At bedside, Pt is in NAD. ROS is significant for SOB, cough and mild headache. A/P: Syncope: Will f/u Echo, carotid ultrasound and orthostatic vital signs. Nasal bridge wound: Will continue wound care. Pneumonia: Will continue iv abx an d f/u blood cx. BPH: Continue flomax and finasteride Sleep apnea: CPAP st night. Cough: Prn mucinex. Headache: prn tylenol Hx of CAD: Continue home med HLD: statin Chronic back pain: Will continue prn pain med. Morbid obesity: Pt was advised to lose weight. Code: full Dispo: Pending hospital course. <Nimisha Batista - Last Filed: 08/25/23 17:24>
--- NOTE | 2023-08-25 14:14 | EKG ---
Test Date: 2023-08-25 Test Time: 03:23:04 Qa Manager: CHARLEY MEASUREMENT RESULTS: Intervals: Rate: 62 MO: 164 QRSD: 110 QT: 406 QTc: 412 [place]: P: 55 MO: 164 QRS: 51 T: 27 INTERPRETIVE STATEMENTS: Normal sinus rhythm Incomplete right bundle branch block Borderline ECG Compared to ECG 08/23/2023 16:48:57 Incomplete right bundle-branch block now present Sinus bradycardia no longer present Electronically Signed On 08-25-23 14:13:17 CDT by Anirudh Pan
[2023-08-25] MEDS: HYDROCODONE/APAP 7.5/325 MG TAB PO PRN (15:30)
[2023-08-25] MEDS: GUAIFENESIN 600 MG SA TAB PO SCH (15:31)
[2023-08-25] MEDS: METHYLPREDNISOLONE 125 MG INJ IV SCH (15:36)
[2023-08-25] MEDS ORDERED: SODIUM CHLORIDE 0.9% 10ML INJ IV PRN (15:46)
[2023-08-25 18:30] VITALS: BMI 42.7
[2023-08-25] MEDS: GABAPENTIN 300 MG CAP PO SCH (21:11)
[2023-08-25] MEDS: TAMSULOSIN 0.4 MG SR CAP PO SCH (21:11)
[2023-08-26 07:03] LABS: Absolute Lymphocytes (CBC) 0.4 K/uL (0.7-4.9); Absolute Monocytes 0.2 K/uL (0.1-1.3); Absolute Neutrophil 7.2 K/uL (1.8-8.0); Basophils % 0.3 % (0-1.3); Eosinophils % 0.2 % (0-4.4); Hematocrit 39.3 % (39.6-49.0); Hemoglobin 13.4 g/dL (13.6-17.9); Lymphocytes % 4.9 % (15.3-44.8); MCHC 34.2 g/dL (32.0-36.0); MCV 87.8 fL (80-100); MPV 8.3 fL (7.6-11.3); Monocytes % 2.1 % (3.3-12.3); Neutrophils % 92.5 % (41.7-73.7); Platelets 219 thou/uL (152-406); RBC Red Blood Cell Count 4.48 M/uL (4.33-5.43); Red Cell Distribution Width 15.3 % (12.1-15.2)
[2023-08-26 07:27] LABS: Albumin 3.5 g/dL (3.4-5.0); Albumin/Globulin Ratio 1.1 (1.1-1.8); Anion Gap 7.6 mEq/L (5.0-15.0); Bilirubin Total 0.6 mg/dL (0.2-1.0); Globulin 3.3 g/dL (2.3-3.5); Magnesium 2.4 mg/dL (1.6-2.4); Phosphorus 3.9 mg/dL (2.5-4.9); Potassium 4.6 mEq/L (3.5-5.1); Protein, Total 6.8 g/dL (6.4-8.2)
[2023-08-26] MEDS: Levofloxacin 750mg IV 750 MG/150 ML BAG IV SCH (09:06)
[2023-08-26] MEDS: AMLODIPINE 5 MG TAB PO SCH (09:08)
[2023-08-26] MEDS: PANTOPRAZOLE 40 MG INJ IVP SCH (09:09)
[2023-08-26 10:40] LABS: Blood Morphology Comment NOT SEEN (NOT SEEN); Platelet Estimate ADEQ; White Blood Cell Scan OK (OK)
--- NOTE | 2023-08-26 11:56 | P.DS ---
Admission Date: 08/25/23 Discharge Date: 08/27/23 Primary Care Provider: [facility] Reason for Admission: Syncope Consultations: Dr. Meadows Brief History of Present Illness: Mr. Tyler is a 62-year-old male patient with a history of hyperlipidemia, hypertension, CAD, GERD, sleep apnea and anxiety. He states that over the last week he has had a cough which has progressively gotten worse and a low-grade fever up to 100.8. He went to the [facility] last week for what he thought was hayfever. He was given a course of prednisone which he has been taking for 3 days. He presented to the emergency department on Friday and after CT evaluation was sent home with neb treatments, prednisone, guaifenesin AC, and Levaquin 750 mg. Mr. Tyler presented to the emergency department today after a paroxysmal cough resulting in syncope. He struck his nose during the syncopal episode, CT reveals a fracture of the nasal bone. His emergency room evaluation was otherwise unremarkable. He denies chest pain at this time. We will admit him to the hospital for monitoring overnight and cardiology will be consulted for evaluation. Hospital Course: Mr. Tyler has maintained O2 sats in the 90s without an oxygen requirement. He will be switched to p.o. antibiotics, steroids, and continued neb treatments. He was seen by cardiology and they recommended an outpatient Holter monitor for evaluation. Continue: Neurontin 800mg TID Ranexa 500mg BID Norvasc 5mg po daily Finesteride 5mg po at HS Omeprazole 20mg po daily Aspirin 81mg po daily Continue CPAP at HS Add: Tamsulosin 0.4mg po q hs Albuterol 2.5mg/3ml q 6h pulmicort 0.5mg/2ml q 12h prednisone 20mg po BID x 3 days Levaquin 500mg po daily x 7 days <Sona Macias - Last Filed: 08/27/23 09:58> Admission Date: 08/25/23 Discharge Date: 08/27/23 Hospital Course: Discharge diagnosis Pneumonia: Sleep Apnea: Hypertension: Hyperlipidemia: Stable Angina: Cough Syncope: BPH: <chevy yeager - Last Filed: 08/29/23 19:00> Disposition: ROUTINE DISCHARGE Discharge Condition: GOOD Vital Signs/Physical Exam: Temp Pulse Resp BP Pulse Ox 96.1 F L 58 16 141/67 H 91 08/26/23 08:00 08/26/23 08:00 08/26/23 08:00 08/26/23 08:00 08/26/23 08:00 General: Alert, In no apparent distress, Oriented x3, Obese HEENT: Atraumatic, Normocephalic Neck: 2+ carotid pulse no bruit Respiratory: Normal air movement, Expiratory wheezes Cardiovascular: Normal pulses, Regular rate/rhythm Capillary refill: <2 Seconds Gastrointestinal: Soft and benign Musculoskeletal: No clubbing, No swelling Integumentary: Other (umbilical area remains injected) Neurological: Normal speech, Normal tone Lymphatics: No axilla or inguinal lymphadenopathy External genitalia: Deferred Rectal: Deferred Laboratory Data at Discharge: WBC 7.80 thou/uL (4.3-10.9) 08/26/23 06:03 Hgb 13.4 g/dL (13.6-17.9) L 08/26/23 06:03 Hct 39.3 % (39.6-49.0) L 08/26/23 06:03 Plt Count 219 thou/uL (152-406) 08/26/23 06:03 PT 12.2 SECONDS (9.5-12.5) 08/25/23 03:27 INR 1.11 08/25/23 03:27 APTT 26.6 SECONDS (24.3-36.9) 08/25/23 03:27 Sodium 134 mEq/L (136-145) L 08/26/23 06:03 Potassium 4.6 mEq/L (3.5-5.1) D 08/26/23 06:03 BUN 20 mg/dL (7-18) H 08/26/23 06:03 Creatinine 0.89 mg/dL (0.70-1.30) 08/26/23 06:03 Glucose 143 mg/dL (74-106) H 08/26/23 06:03 Phosphorus 3.9 mg/dL (2.5-4.9) 08/26/23 06:03 Magnesium 2.4 mg/dL (1.6-2.4) 08/26/23 06:03 Total Bilirubin 0.6 mg/dL (0.2-1.0) 08/26/23 06:03 AST 38 U/L (15-37) H 08/26/23 06:03 ALT 66 U/L (16-61) H 08/26/23 06:03 Alkaline Phosphatase 98 U/L (45-117) 08/26/23 06:03 Triglycerides 77 mg/dL (<150) 08/26/23 06:03 Cholesterol 135 mg/dL (<200) 08/26/23 06:03 HDL Cholesterol 48 mg/dL (40-60) 08/26/23 06:03 Cholesterol/HDL Ratio 2.81 08/26/23 06:03 <Macias,Sona Inocente - Last Filed: 08/27/23 09:58> Vital Signs/Physical Exam: Temp Pulse Resp BP Pulse Ox 97.5 F 58 18 150/76 H 93 08/27/23 10:02 08/27/23 10:02 08/27/23 10:02 08/27/23 10:02 08/27/23 10:02 Laboratory Data at Discharge: WBC 7.80 thou/uL (4.3-10.9) 08/26/23 06:03 Hgb 13.4 g/dL (13.6-17.9) L 08/26/23 06:03 Hct 39.3 % (39.6-49.0) L 08/26/23 06:03 Plt Count 219 thou/uL (152-406) 08/26/23 06:03 PT 12.2 SECONDS (9.5-12.5) 08/25/23 03:27 INR 1.11 08/25/23 03:27 APTT 26.6 SECONDS (24.3-36.9) 08/25/23 03:27 Sodium 134 mEq/L (136-145) L 08/26/23 06:03 Potassium 4.6 mEq/L (3.5-5.1) D 08/26/23 06:03 BUN 20 mg/dL (7-18) H 08/26/23 06:03 Creatinine 0.89 mg/dL (0.70-1.30) 08/26/23 06:03 Glucose 143 mg/dL (74-106) H 08/26/23 06:03 Phosphorus 3.9 mg/dL (2.5-4.9) 08/26/23 06:03 Magnesium 2.4 mg/dL (1.6-2.4) 08/26/23 06:03 Total Bilirubin 0.6 mg/dL (0.2-1.0) 08/26/23 06:03 AST 38 U/L (15-37) H 08/26/23 06:03 ALT 66 U/L (16-61) H 08/26/23 06:03 Alkaline Phosphatase 98 U/L (45-117) 08/26/23 06:03 Triglycerides 77 mg/dL (<150) 08/26/23 06:03 Cholesterol 135 mg/dL (<200) 08/26/23 06:03 HDL Cholesterol 48 mg/dL (40-60) 08/26/23 06:03 Cholesterol/HDL Ratio 2.81 08/26/23 06:03 <chevy yeager - Last Filed: 08/29/23 19:00> Diet: ADA Activity: Ad tianna <Sona Macias - Last Filed: 08/27/23 09:58> <chevy yeager - Last Filed: 08/29/23 19:00> Home Medications: Finasteride 5 mg PO BEDTIME 05/15/23 Gabapentin [Neurontin*] 800 mg PO TID 05/15/23 Amlodipine [Norvasc*] 5 mg PO DAILY 06/18/23 Aspirin [Aspirin EC] 81 mg PO DAILY 06/18/23 Fluoxetine HCl [Prozac] 80 mg PO DAILY 06/18/23 Omeprazole 20 mg PO DAILY 06/18/23 lamoTRIgine [Subvenite] 25 mg PO SEECOM 06/18/23 lamoTRIgine [Subvenite] 50 mg PO DAILY 06/18/23 Albuterol Neb [Proventil 0.083% Neb Soln] 2.5 mg NEB [id number] 10 Days 08/26/23 Amlodipine [Norvasc*] 5 mg PO DAILY #60 tab 08/26/23 Budesonide [Pulmicort] 0.5 mg IH BID 30 Days 08/26/23 Levofloxacin [Levaquin] 500 mg PO DAILY #7 tab 08/26/23 Nebulizer 1 each PRN #1 ea 08/26/23 Nebulizer Accessories [Adult Aerosol Mask] 1 each PRN #1 ea 08/26/23 Prednisone 20 mg PO BID #6 tab 08/26/23 Tamsulosin [Flomax*] 0.4 mg PO BEDTIME #60 cap 08/26/23 New Medications: Nebulizer Accessories [Adult Aerosol Mask] 1 each MC PRN #1 ea Tamsulosin [Flomax*] 0.4 mg PO BEDTIME #60 cap Levofloxacin [Levaquin] 500 mg PO DAILY #7 tab Nebulizer 1 each MC PRN #1 ea Amlodipine [Norvasc*] 5 mg PO DAILY #60 tab Prednisone 20 mg PO BID #6 tab Albuterol Neb [Proventil 0.083% Neb Soln] 2.5 mg NEB [id number] 10 Days Budesonide [Pulmicort] 0.5 mg IH BID 30 Days Physician Discharge Instructions: Okay to DC IV and DC home Follow-up with primary care provider in 1 to 2 weeks Follow-up with cardiology in 1 to 2-week for outpatient event monitor Please call the inpatient unit for any questions or concerns regarding hospital stay Return to the ER for worsening symptoms Followup: Missy Fernandez NP [Primary Care Provider] - 1-2 Weeks Pop Meadows MD [ACTIVE - CAN ADMIT] - 1-2 Weeks
--- NOTE | 2023-08-26 16:55 | P.PN ---
Subjective Date of Service: 08/26/23 Primary Care Provider: DEIDRE Chief Complaint: Syncope Subjective: No new changes Review of Systems 10-point ROS is otherwise unremarkable Physical Examination - Vital Signs Temperature: 97 F Blood Pressure: 130/78 Pulse: 68 Respirations: 14 Pulse Ox (%): 94 - Physical Exam General: Alert, Oriented x3 HEENT: Atraumatic Neck: Supple Respiratory: Clear to auscultation bilaterally Cardiovascular: No edema, Normal S1 S2 Gastrointestinal: Normal bowel sounds Assessment And Plan - Current Problems (Diagnosis) (1) Syncope Current Visit: Yes Status: Acute Plan: most likely vagal after coughing episode. 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 (2) HTN (hypertension) Current Visit: Yes Status: Acute Plan: Continue Norvasc 5 mg daily (3) Chest pain Current Visit: Yes Status: Acute Plan: patient denies having chest pain at this time but report chronic angina. continue Ranexa 500 mg po BID
[2023-08-27 06:30] VITALS: TEMP 97.5
[2023-08-27 09:42] VITALS: BP 150/76
--- NOTE | 2023-08-27 10:03 | P.PN ---
Subjective Date of Service: 08/26/23 Primary Care Provider: DEIDRE Chief Complaint: Syncope Subjective: Improving (feeling better would like to go home this afternoon but is uneasy with discharge, pt agrees to stay another night to be safe) <Sona Macias - Last Filed: 08/27/23 10:00> Date of Service: 08/30/23 <Nimisha Batista - Last Filed: 08/30/23 23:04> Review of Systems 10-point ROS is otherwise unremarkable Respiratory: Cough, Shortness of Breath, As per HPI Cardiovascular: As per HPI <Sona Macias - Last Filed: 08/27/23 10:00> Physical Examination - Vital Signs Temperature: 97.5 F Blood Pressure: 150/76 Pulse: 58 Respirations: 18 Pulse Ox (%): 93 - Physical Exam General: Alert, In no apparent distress, Oriented x3 HEENT: Atraumatic, Normocephalic Neck: Supple Respiratory: Normal air movement, Expiratory wheezes Cardiovascular: No edema, Normal pulses, Regular rate/rhythm Capillary refill: <2 Seconds Gastrointestinal: Soft and benign, Other (umbilicus with decreased erythema ) Musculoskeletal: No clubbing, No swelling Integumentary: No rashes Neurological: Normal speech, Normal tone Lymphatics: No axilla or inguinal lymphadenopathy External genitalia: Deferred Rectal: Deferred <Sona Macias - Last Filed: 08/27/23 10:00> - Studies Microbiology Data (last 24 hrs): 08/25/23 03:53 Blood - Blood Aerobic Blood Culture - Final No growth in 5 days. 08/25/23 03:53 Blood - Blood Anaerobic Blood Culture - Final No growth in 5 days. 08/25/23 03:27 Blood - Blood Aerobic Blood Culture - Final No growth in 5 days. 08/25/23 03:27 Blood - Blood Anaerobic Blood Culture - Final No growth in 5 days. <Nimisha Batista - Last Filed: 08/30/23 23:04> Assessment And Plan - Plan Pneumonia: "IMPRESSION: Negative for pulmonary embolism. Mild bronchial wall thickening and nodularity in the medial right lower lobe could reflect pneumonia or pneumonitis, possibly secondary to aspiration. Dictated By: Jake Crowley MD 08/23/23" Levaquin IVPB daily Neb treatments Solumedrol 60mg iv q 8h O2 per protocol monitor labs, blood cultures pending Sleep Apnea: CPAP from Home HOB up 30 degrees Protonix 40mg IV daily Hypertension: Continue home medications (Norvasc 5mg po daily), monitor VS Hyperlipidemia: Continue home medications Stable Angina: Continue Ranexa 500mg po daily Consult Cardio Cough Syncope: Tussionex 5ml po q 12h prn cough Consult Cardio Carotid doppler - negative for acute Tele is normal, EKG is normal advised patient that he will benefit an event monitor as outpatient. He will schedule that. BPH: Finesteride and Tamsulosin per home regimen GI prophylaxis: on protonix DVT prophylaxis: Lovenox Code Status: full Discharge plan: 36-48hr <Sona Macias - Last Filed: 08/27/23 10:00> - Plan Pt seen and examined. I agree with the note by the CAST ASSOCIATE. Continue iv abx for pneumonia. CTA chest is negative for PE. <Nimisha Batista - Last Filed: 08/30/23 23:04>
--- NOTE | 2023-08-27 12:01 | RAD REPORT ---
EXAM DESCRIPTION: RAD - Chest Pa And Lat (2 Views) - 08/27/2023 10:43 am CLINICAL HISTORY: Cough. Repeat CXR COMPARISON: Chest Single View dated 08/25/2023; Chest Single View dated 08/23/2023; Chest Single View dated 06/18/2023; Chest Single View dated 05/15/2023 TECHNIQUE: PA and lateral views of the chest were obtained. FINDINGS: The lungs are clear. Heart size is normal and central vasculature is within normal limits. No pleural effusion or pneumothorax seen. No acute bony finding noted. IMPRESSION: No acute cardiopulmonary process.
--- NOTE | 2023-08-27 17:47 | PN ---
Date of Progress Note: 08/27/2023 Subjective: Seen at bedside, doing clinically well. No complaints. Review of Systems: No chest pain, shortness of breath, orthopnea, cough. No nausea, vomiting, or diarrhea. All other s ystems reviewed, they are negative. Physical Examination: Vital Signs: Reviewed. Head and Neck: Pupils are equal, reactive to light. Intact eye movements. No JVD. No cervical lym phadenopathy. Neck is supple. Thyroid is not enlarged. Lungs: Clear to auscultation bilaterally. No rhonchi, rales, or crackles. No accessory muscle use. Heart: Regular rate and rhythm. No extra sounds. Abdomen: Soft, nontender. Bowel sounds positive. No organomegaly. No mass or hernia. No rigidity or rebound. Extremities: No edema, clubbing, cyanosis. Intact pulses. Skin: No rash. No ulcers. Neuro: Alert, awake, oriented x3. No acute focal deficits appreciated. Investigations: Labs reviewed. Assessment/recommendations: 1.Syncope, likely vasovagal event. Recommend outpatient followup for an event monitor. 2.Hypertension. Blood pressure is controlled. Continue home medications. 3.Diabetes. Sugars are controlled. SR/MODL Voice ID: [id number] Report ID: [id number]
== END 2023-08-27 13:45 | disposition home or self-care (01) | DRG 312 ==
LOC: ER 03:11 → ERHOLD 07:22 → 4TH 07:53
PROVIDERS: ADMIT Hospitalist; ATTEND Internal Medicine
DX: R55 Syncope and collapse (principal); J18.9 Pneumonia, unspecified organism; Z68.41 Body mass index [BMI] 40.0-44.9, adult; E66.01 Morbid (severe) obesity due to excess calories; E78.00 Pure hypercholesterolemia, unspecified; I10 Essential (primary) hypertension; G89.29 Other chronic pain; M54.9 Dorsalgia, unspecified; G47.30 Sleep apnea, unspecified; N40.0 Benign prostatic hyperplasia without lower urinary tract symptoms; K21.9 Gastro-esophageal reflux disease without esophagitis; S02.2XXA Fracture of nasal bones, initial encounter for closed fracture; I25.118 Atherosclerotic heart disease of native coronary artery with other forms of angina pectoris; Z88.1 Allergy status to other antibiotic agents; Z90.49 Acquired absence of other specified parts of digestive tract; Z11.52 Encounter for screening for COVID-19; Z79.82 Long term (current) use of aspirin; Z99.89 Dependence on other enabling machines and devices; Z79.899 Other long term (current) drug therapy
CPT/HCPCS: 36415; 70450; 70486; 71045; 71046; 71275; 72125; 76377; 80048; 80053; 80061; 80076; 82947; 83605; 83735; 83880; 84100; 84484; 85025; 85610; 85730; 87040; 87804; 87811; 93005; 93880; 94640; 96365; 96366; 96367; 96375; 99285; C9113; J1650; J2405; J2930; J3475; J7030; J7512; J7613; J7614; J7644; Q9967

== ENCOUNTER 2024-01-20 09:39 | Observation (INO) | payer OTHER ==
[2024-01-20] MEDS ORDERED: KETOROLAC 30 MG/ML INJ ONE (09:57)
[2024-01-20] MEDS ORDERED: MORPHINE 4 MG/ML SYR ONE (09:57)
[2024-01-20] MEDS ORDERED: FAMOTIDINE 20 MG/2 ML VIAL IV ONE (09:58)
[2024-01-20 10:08] LABS: Absolute Eosinophils 0.2 K/uL (0-0.5); Absolute Monocytes 0.4 K/uL (0.1-1.3); Absolute Neutrophil 5.7 K/uL (1.8-8.0); Basophils % 0.5 % (0-1.3); Eosinophils % 2.2 % (0-4.4); Hemoglobin 14.3 g/dL (13.6-17.9); Lymphocytes % 13.3 % (15.3-44.8); MCH 30.3 pg (27.0-35.0); MCHC 33.9 g/dL (32.0-36.0); MCV 89.3 fL (80-100); Monocytes % 5.9 % (3.3-12.3); Neutrophils % 78.1 % (41.7-73.7); Platelets 212 thou/uL (152-406); Red Cell Distribution Width 15.5 % (12.1-15.2)
[2024-01-20 10:26] LABS: Anion Gap 9.2 mEq/L (5.0-15.0); Potassium 4.2 mEq/L (3.5-5.1); Troponin High Sensitivity 5.7 pg/mL (<58.9)
--- NOTE | 2024-01-20 10:58 | RAD REPORT ---
EXAM DESCRIPTION: RAD - Chest Single View - 01/20/2024 10:45 am CLINICAL HISTORY: CHEST PAIN Chest pain. COMPARISON: Chest Pa And Lat (2 Views) dated 08/27/2023; Chest Single View dated 08/25/2023; Chest Sin gle View dated 08/23/2023; Chest Single View dated 06/18/2023 FINDINGS: Portable technique limits examination quality. The lungs are grossly clear. The heart is upper limit normal in size. No displaced fractures. IMPRESSION: No acute intrathoracic process suspected.
--- NOTE | 2024-01-20 12:03 | RAD REPORT ---
EXAM DESCRIPTION: CT - Angio Aorta For Dissection - 01/20/2024 11:37 am CLINICAL HISTORY: Chest pain radiating to the back. S COMPARISON: No comparisons TECHNIQUE: CT angiography of the aorta was performed with MIPs. All CT scans are performed using dose optimization technique as appropriate and may include automated exposure control or mA/KV adjustment according to patient size. FINDINGS: A left aortic arch is present with normal branching pattern of the great vessels.No acute aortic finding is seen such as aneurysm, penetrating ulcer or dissection. The celiac axis, SMA, MOHSEN and renal arteries are patent. No evidence of pulmonary embolism. The lungs are clear. The liver demonstrates no focal mass or biliary dilatation.Mild fatty liver. Cholecystectomy clips. T he spleen, pancreas, adrenal glands and kidneys are within normal limits for arterial phase imaging.B enign left renal cyst. No bowel obstruction, free fluid or abscess.Moderate fat containing inguinal hernia.No pathologic enl arged lymphadenopathy identified.Normal appendix. Sigmoid diverticulosis without diverticulitis. No fracture or worrisome bone lesion seen.Lumbosacral degenerative changes. IMPRESSION: No acute aortic finding is demonstrated.
--- NOTE | 2024-01-20 12:14 | ER ---
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 ll1 Coronavirus screen: Client denies travel out of the [place] in the last 14 days. At this time, the client does not indicate any symptoms associated with coronavirus-19. Ebola Screen: Patient denies travel to an Ebola-affected area in the 21 days before illness onset. Initial Sepsis Screen: Does the patient meet any 2 criteria? No. Patient's initial sepsis screen is negative. Does the patient have a suspected source of infection? No. Patient's initial sepsis screen is negative. Risk Assessment: Do you want to hurt yourself or someone else? Patient reports no desire to harm self or others. Onset of symptoms was January 20, 2024. 09:46 Method Of Arrival: Wheelchair ll1 09:46 Acuity: TED 2 ll1 Historical: - Allergies: 09:45 Amoxicillin; ll1 09:45 Dilaudid; ll1 - PMHx: 09:45 Back injury; coronary atherosclerosis; Hypercholesterolemia; Hypertensive disorder; ll1 Kidney stone; - PSHx: 09:45 back; Cholecystectomy; hernia; knee; Shoulder; ll1 - Immunization history:: Adult Immunizations up to date. - Infectious Disease History:: Denies. - Social history:: Smoking status: unknown. Screenin:52 [facility] ED Fall Risk Assessment (Adult) History of falling in the last 3 months, db including since admission No falls in past 3 months (0 pts) Confusion or Disorientation No (0 pts) Intoxicated or Sedated No (0 pts) Impaired Gait No (0 pts) Mobility Assist Device Used No (0 pt) Altered Elimination No (0 pt) Score/Fall Risk Level 0 - 2 = Low Risk Oriented to surroundings, Maintained a safe environment. Abuse screen: Denies threats or abuse. Denies injuries from another. Nutritional screening: No deficits noted. Tuberculosis screening: No symptoms or risk factors identified. Assessment: 09:52 Reassessment: Patient appears in no apparent distress at this time. Patient and/or db family updated on plan of care and expected duration. Pain level reassessed. Patient is alert, oriented x 3, equal unlabored respirations, skin warm/dry/pink. LEFT CENTER CHEST PAIN. General: Appears distressed, uncomfortable, Behavior is cooperative, anxious. Pain: Complains of pain in chest Pain does not radiate. Pain began suddenly. Neuro: Level of Consciousness is awake, alert, obeys commands, Oriented to person, place, time, situation. Cardiovascular: Reports chest pain, Capillary refill < 3 seconds Patient's skin is warm and dry. 10:25 Reassessment: patient placed on 2liters oxygen due to SPO2 of 88% on room air. provider ap3 notified. 12:45 Reassessment: patients asked to speak with ER DrRenard this nurse notified ER physician.ap3 13:00 Reassessment: Patient and/or family updated on plan of care and expected duration. Pain ap3 level reassessed. Patient is alert, oriented x 3, equal unlabored respirations, skin warm/dry/pink. Patient states feeling better. Patient states symptoms have improved. 14:47 Reassessment: Patient and/or family updated on plan of care and expected duration. Pain ap3 level reassessed. Patient is alert, oriented x 3, equal unlabored respirations, skin warm/dry/pink. patient updated on bed status for upstairs. 15:00 Reassessment: report was sent to 4th floor at 1500. ap3 Vital Signs: 09:46 BP 229 / 217; Pulse 65; Resp 14; Pulse Ox 97% on R/A; Weight 138.35 kg; Height 6 ft. 1 db in. ; Pain 10/10; 10:01 BP 156 / 95; Pulse 67; Pulse Ox 93% on R/A; ap3 10:38 BP 141 / 76; Pulse 61; Resp 17; Pulse Ox 91% on 2 lpm NC; ap3 11:45 BP 146 / 73; Pulse 61; Resp 16; Pulse Ox 95% on 2 lpm NC; ap3 13:30 BP 133 / 78; Pulse 57; Resp 17; Pulse Ox 98% on 2 lpm NC; ap3 14:54 BP 129 / 78; Pulse 51; Resp 17; Pulse Ox 98% on 2 lpm NC; ap3 14:58 Temp 98(O); ap3 15:51 BP 121 / 85; Pulse 51; Resp 17; Pulse Ox 97% on 2 lpm NC; ap3 09:46 Body Mass Index 40.24 (138.35 kg, 185.42 cm) db 09:46 Pain Scale: Adult db ED Course: 09:40 Patient arrived in ED. mr 09:41 Maurilio Garcia MD is Attending Physician. ec2 09:45 Arm band placed on Patient placed in an exam room, on a stretcher. ll1 09:45 Provided Education on: fall risk and call light education. Client placed on continuous ap3 cardiac and pulse oximetry monitoring. NIBP monitoring applied. patient monitor on. Pulse ox on. NIBP on. 09:47 Triage completed. ll1 09:49 Catalina Deutsch, CHAIM is Primary Nurse. db 09:59 Initial lab(s) drawn, by me, sent to lab. Inserted saline lock: 22 gauge in left ap3 antecubital area, using aseptic technique. Blood collected. 10:00 Basic Metabolic Panel Sent. ap3 10:00 CBC with Diff Sent. ap3 10:00 Troponin HS Sent. ap3 10:47 XRAY Chest (1 view) In Process Unspecified. EDMS 11:39 Angio Aorta For Dissection In Process Unspecified. EDMS 11:51 Troponin High Sensitivity Sent. ap3 12:13 Hector Reid is Hospitalizing Provider. ec2 12:16 Edwar Pena MD is Hospitalizing Provider. ec2 12:30 Pt visited by . ap3 14:06 1406 CM met with patient, , son at bedside in the ED exam room. Dr. Garcia was at ane bedside discussing plan of care. Patient identified by name and . Mr. Tyler states he lives with his Maryjane in a single story home. Patient states prior to admission, he performs ADLs independently and without physical limitations. DME includes a cane that patient states he uses sporadically to help with knee and back pain and a CPAP he uses nightly. No MPOA in place at this time. Patient's preferred plan is to return home upon discharge. Maryjane states she will transport home when he is discharged. CM team will continue to follow and coordinate care. 15:11 Patient has correct armband on for positive identification. Placed in gown. Bed in low ap3 position. Call light in reach. Side rails up X2. Adult w/ patient. 15:11 Oxygen administration via nasal cannula \T\ 2L/min. ap3 15:12 No provider procedures requiring assistance completed. ap3 15:50 Patient admitted, IV remains in place. ap3 Administered Medications: 10:12 Drug: morphine IVP or IV 4 mg IVP once over 4 mins Route: IVP; Infused Over: 4 mins; ap3 Site: left antecubital; 11:44 Follow up: Response: No adverse reaction; Pain is decreased ap3 10:12 Drug: Ketorolac IVP 15 mg IVP once Route: IVP; Site: left antecubital; ap3 11:44 Follow up: Response: No adverse reaction; Pain is decreased ap3 10:12 Drug: Famotidine IVP 10 mg IVP once; dilute with 10 mL 0.9% NaCl; give over 2 minutes ap3 Route: IVP; Site: left antecubital; 11:44 Follow up: Response: No adverse reaction ap3 Medication: 15:11 VIS not applicable for this client. ap3 Outcome: 12:13 Decision to Hospitalize by Provider. ec2 15:50 Admitted to Med/surg accompanied by tech, room 404, ap3 15:50 Condition: good 15:50 Instructed on the need for admit, 15:52 Patient left the ED. ap3 Signatures: Dispatcher [employer] EDFL EmmanuelSenait, Reg Reg mr Mishel Sherman RN RN ap3 Andreea Ordaz RN RN ll1 Catalina Deutsch RN RN db Corral, Edwin, MD MD ec2 Adeline Miller RN RN ane
--- NOTE | 2024-01-20 12:14 | EDPHYS ---
Physician Documentation [facility] Name: Aravind Tyler Age: 63 yrs Sex: Male : 1960 Arrival Date: 01/20/2024 Time: 09:39 Bed 7 Private MD: ED Physician Maurilio Garcia HPI: 01/19 09:49 This 63 yrs old Male presents to ER via Wheelchair with complaints of Chest ec2 Pain. 09:51 Patient arrives today for evaluation of left-sided chest pain. Patient complaining of ec2 chest pain that started earlier this morning. States that the pain started shortly after eating at [facility]. Patient reports no exertional component states that he has had previous Issues with chest pain and usually resolved with nitroglycerin, states he took a nitroglycerin with no alleviation in symptoms. Patient reports no difficulty breathing. Not on blood thinners.. Historical: - Allergies: 09:45 Amoxicillin; ll1 09:45 Dilaudid; ll1 - PMHx: 09:45 Back injury; coronary atherosclerosis; Hypercholesterolemia; Hypertensive disorder; ll1 Kidney stone; - PSHx: 09:45 back; Cholecystectomy; hernia; knee; Shoulder; ll1 - Immunization history:: Adult Immunizations up to date. - Infectious Disease History:: Denies. - Social history:: Smoking status: unknown. ROS: 09:51 Constitutional: as per hpi ec2 Exam: 09:51 Constitutional: GEN: Uncomfortable appearing individual Head: atraumatic Eyes: ec2 EOMI Ears: External ears are normal. CV: regular rate LUNGS: no respiratory distress ABD: non-distended SKIN: no evidence of rashes MSK: no evidence of trauma, reproducible chest wall TTP without deformities or crepitus appreciated. Vital Signs: 09:46 BP 229 / 217; Pulse 65; Resp 14; Pulse Ox 97% on R/A; Weight 138.35 kg; Height 6 ft. 1 db in. ; Pain 10/10; 10:01 BP 156 / 95; Pulse 67; Pulse Ox 93% on R/A; ap3 10:38 BP 141 / 76; Pulse 61; Resp 17; Pulse Ox 91% on 2 lpm NC; ap3 11:45 BP 146 / 73; Pulse 61; Resp 16; Pulse Ox 95% on 2 lpm NC; ap3 13:30 BP 133 / 78; Pulse 57; Resp 17; Pulse Ox 98% on 2 lpm NC; ap3 14:54 BP 129 / 78; Pulse 51; Resp 17; Pulse Ox 98% on 2 lpm NC; ap3 14:58 Temp 98(O); ap3 15:51 BP 121 / 85; Pulse 51; Resp 17; Pulse Ox 97% on 2 lpm NC; ap3 09:46 Body Mass Index 40.24 (138.35 kg, 185.42 cm) db 09:46 Pain Scale: Adult db MDM: 09:51 Patient medically screened. ec2 09:51 Data reviewed: vital signs. ED course: Patient arrives today for evaluation of chest ec2 pain. Examination remarkable for reproducible chest wall TTP as well as hypertension. Will obtain lab work, CT of the chest to evaluate for dissection. Differential includes dissection, ACS, additionally considering PE. Also close relation to pain to p.o. intake, possible reflux, possible gallbladder pathology.. 09:53 ED course: EKG independently reviewed and interpreted by me, shows normal sinus rhythm, ec2 rate of 66, no acute ST segment elevations, intervals are nonconcerning.. 10:30 ED course: Metabolic profile is reassuring, CBC reassuring, troponin within normal ec2 ranges. Will obtain repeat EKG and troponin, pending CT imaging . 11:17 ED course: EKG independently reviewed and interpreted by me, shows normal sinus rhythm, ec2 rate of 57, no acute ST segment elevations, intervals are nonconcerning.. 12:13 ED course: Patient remains with active chest pain, will admit for cardiac workup. ec2 Discussed case with hospitalist, pending admission.. 12:14 HEART Score: History: Moderately Suspicious (1), ECG: Non specific repolarization ec2 disturbance / LBTB / PM (1), Age: > 45 and < 65 years (1), Risk Factors: > or = 3 Risk factors for atherosclerotic disease (2), Troponin: < or = 1 x Normal Limit (0), Total Score = 5. 12:15 ED course: MDM: Differential diagnosis as documented above in ED course; All lab tests ec2 ordered and reviewed as documented above; Independent interpretation of tests: EKG as above; Parenteral controlled substances: Yes; History gathered from independent historian: Yes, ; Discuss inpatient hospitalization: Yes; I discussed the case with: Hospitalist . 01/19 09:51 Order name: Basic Metabolic Panel; Complete Time: 10:29 ec2 01/19 09:51 Order name: CBC with Diff; Complete Time: 10:29 ec2 01/19 09:51 Order name: Troponin HS; Complete Time: 10:29 ec2 01/19 11:46 Order name: Troponin High Sensitivity ec2 01/19 14:27 Order name: CBC with Automated Diff EDMS 01/19 14:27 Order name: CBC with Automated Diff EDMS 01/19 14:27 Order name: Comprehensive Metabolic Panel EDMS 01/19 14:27 Order name: Comprehensive Metabolic Panel EDMS 01/19 14:27 Order name: Lipid Profile EDMS 01/19 14:27 Order name: Lipid Profile EDMS 01/19 14:27 Order name: Protime (+INR) EDMS 01/19 14:27 Order name: Protime (+INR) EDMS 01/19 14:27 Order name: PTT, Activated Partial Thromb EDMS 01/19 14:27 Order name: PTT, Activated Partial Thromb EDMS 01/19 14:27 Order name: Troponin High Sensitivity EDMS 01/19 14:27 Order name: Troponin High Sensitivity EDMS 01/19 14:27 Order name: Troponin High Sensitivity EDMS 01/19 09:51 Order name: XRAY Chest (1 view); Complete Time: 11:01 ec2 01/19 11:16 Order name: Angio Aorta For Dissection; Complete Time: 12:10 EDMS 01/19 09:51 Order name: EKG; Complete Time: 09:51 ec2 01/19 14:27 Order name: CONS Physician Consult EDMS 01/19 09:51 Order name: Cardiac monitoring; Complete Time: 09:54 ec2 01/19 09:51 Order name: EKG - Nurse/Tech; Complete Time: 09:54 ec2 01/19 09:51 Order name: IV Saline Lock; Complete Time: 09:54 ec2 01/19 09:51 Order name: Labs collected and sent; Complete Time: 09:54 ec2 01/19 09:51 Order name: O2 Per Protocol; Complete Time: 09:54 ec2 01/19 09:51 Order name: O2 Sat Monitoring; Complete Time: 09:54 ec2 01/19 10:30 Order name: Misc. Order: repeat ekg/trop at 1145; Complete Time: 11:44 ec2 01/19 11:46 Order name: EKG - Nurse/Tech; Complete Time: 11:51 ec2 Administered Medications: 10:12 Drug: morphine IVP or IV 4 mg IVP once over 4 mins Route: IVP; Infused Over: 4 mins; ap3 Site: left antecubital; 11:44 Follow up: Response: No adverse reaction; Pain is decreased ap3 10:12 Drug: Ketorolac IVP 15 mg IVP once Route: IVP; Site: left antecubital; ap3 11:44 Follow up: Response: No adverse reaction; Pain is decreased ap3 10:12 Drug: Famotidine IVP 10 mg IVP once; dilute with 10 mL 0.9% NaCl; give over 2 minutes ap3 Route: IVP; Site: left antecubital; 11:44 Follow up: Response: No adverse reaction ap3 Disposition Summary: 01/20/24 12:13 Hospitalization Ordered Notes: Hospitalization Status: Inpatient Admission ec2 Condition: Stable ec2 Problem: new ec2 Symptoms: have improved ec2 Bed/Room Type: Standard ec2 Provider: Edwar Pena(01/20/24 12:16) ec2 Location: Telemetry/MedSurg (Inpatient)(01/20/24 14:32) bd Room Assignment: 410(01/20/24 15:05) ja1 Diagnosis - Chest pain, unspecified ec2 Forms: - Medication Reconciliation Form ec2 - SBAR form ec2 - Leadership Thank You Letter ec2 Signatures: Dispatcher [employer] EDMS Abbey Weinberg Jose, RN RN ja1 Mishel Sherman RN RN ap3 Andreea Ordaz RN RN ll1 Maurilio Garcia MD MD ec2 Corrections: (The following items were deleted from the chart) 12:16 12:13 Hector Reid ec2 ec2 12:55 12:13 Telemetry/MedSurg (Inpatient) ec2 bd 12:55 12:13 ec2 bd 14:32 12:55 [facility] ER HOLD bd bd 14:32 12:55 ERHOLD- bd bd 15:05 14:32 404 bd ja1
[2024-01-20] MEDS ORDERED: ONDANSETRON 4 MG/2 ML VIAL IV PRN (14:23)
--- NOTE | 2024-01-20 17:27 | P.CNS ---
Date of Consult: 01/20/24 Chief Complaint: chest pain History of Present Illness: Patient with PMH of angina, obesity presented with chest pain that started today in the morning, felt like pressure in mid chest, radiated to shoulder and left arm, was very severe, assoicated with dizziness, no syncope, no SOB, no WARD, no syncope, patient report diagnosis of angina and had multiple stress tests and caths in the past but no stent was placed. Allergies amoxicillin Allergy (Verified 05/15/23 20:37) Itching hydromorphone [From Dilaudid] Allergy (Verified 05/15/23 20:37) Itching Home medications list reviewed: Yes Home Medications: Omeprazole 20 mg PO DAILY 06/18/23 lamoTRIgine [Subvenite] 25 mg PO SEECOM 06/18/23 lamoTRIgine [Subvenite] 50 mg PO DAILY 06/18/23 Tamsulosin [Flomax*] 0.4 mg PO BEDTIME #60 cap 08/26/23 - Past Medical/Surgical History Diabetic: No -: Hypertension -: Hyperlipidemia -: CAD -: Hypoglycemia -: GERD -: Sleep apnea -: Cholecystectomy -: Hernia repair -: Knee surgery, shoulder surgery Psychosocial/ Personal History: Lives at home with family - Family History Mother Medical History: Heart disease Father History Unknown: Yes - Social History Smoking Status: Unknown if ever smoked Alcohol use: No CD- Drugs: No Caffeine use: Yes Place of Residence: Home Review of Systems 10-point ROS is otherwise unremarkable Physical Examination Temp Pulse Resp BP Pulse Ox 96.1 F L 56 18 162/74 H 100 01/20/24 16:00 01/20/24 16:00 01/20/24 16:00 01/20/24 16:00 01/20/24 16:00 General: Alert, In no apparent distress HEENT: Atraumatic, PERRLA, Mucous membr. moist/pink, EOMI, Sclerae nonicteric Neck: Supple, 2+ carotid pulse no bruit, No LAD, Without JVD or thyroid abnormality Respiratory: Clear to auscultation bilaterally, Normal air movement Cardiovascular: Regular rate/rhythm, Normal S1 S2 Gastrointestinal: Normal bowel sounds, No tenderness Musculoskeletal: No tenderness Integumentary: No rashes Neurological: Normal gait, Normal speech, Normal tone, Normal affect Lymphatics: No axilla or inguinal lymphadenopathy Laboratory Data (last 24 hrs) 01/20/24 01/20/24 09:56 09:56 WBC 7.30 Hgb 14.3 Hct 42.0 Plt Count 212 Sodium 137 Potassium 4.2 BUN 25 H Creatinine 1.16 Glucose 129 H - Problems (1) Chest pain Current Visit: No Status: Acute Plan: concern for angina. ASA 325 mg x 1 then continue 81 mg daily get nuclear stress test in am (Lexiscan) continue to trend cardiac enzymes. Lipitor 40 mg daily (2) HTN (hypertension) Current Visit: No Status: Acute Plan: please check patient list of medications and reconcille.
[2024-01-20] MEDS: MORPHINE 2 MG/ML SYR IV PRN (17:35)
[2024-01-20] MEDS: ASPIRIN 325 MG TAB PO ONE (18:04)
[2024-01-20] MEDS: NA CHLORIDE 0.9% 1,000 ML IV SCH (18:05)
[2024-01-21] MEDS: MORPHINE 4 MG/ML SYR ONE (05:00)
[2024-01-21 06:53] LABS: Absolute Eosinophils 0.2 K/uL (0-0.5); Absolute Monocytes 0.4 K/uL (0.1-1.3); Absolute Neutrophil 4.3 K/uL (1.8-8.0); Basophils % 0.4 % (0-1.3); Eosinophils % 2.7 % (0-4.4); Hemoglobin 13.6 g/dL (13.6-17.9); Lymphocytes % 16.9 % (15.3-44.8); MCH 30.6 pg (27.0-35.0); MCV 90.1 fL (80-100); MPV 7.9 fL (7.6-11.3); Monocytes % 7.5 % (3.3-12.3); Neutrophils % 72.5 % (41.7-73.7); Nucleated Red Blood Cells % 0.1 % (0-0); Platelets 194 thou/uL (152-406); RBC Red Blood Cell Count 4.44 M/uL (4.33-5.43); Red Cell Distribution Width 15.5 % (12.1-15.2)
[2024-01-21 06:55] LABS: PT Prothrombin Time 10.8 SECONDS (9.4-12.5); PTT, Activated Partial Thromb 30.2 SECONDS (24.3-36.9); Protime INR 0.96
[2024-01-21 07:14] LABS: Albumin 3.5 g/dL (3.4-5.0); Albumin/Globulin Ratio 1.2 (1.1-1.8); Anion Gap 5.4 mEq/L (5.0-15.0); Bilirubin Total 0.4 mg/dL (0.2-1.0); Potassium 4.4 mEq/L (3.5-5.1); Protein, Total 6.5 g/dL (6.4-8.2)
[2024-01-21] MEDS: ASPIRIN EC 81 MG TAB PO SCH (09:00)
[2024-01-21] MEDS: ACETAMINOPHEN 500 MG TAB PO PRN (16:32)
[2024-01-21 16:37] VITALS: BMI 41.0
--- NOTE | 2024-01-21 17:00 | EKG ---
Test Date: 2024-01-20 Test Time: 11:09:24 Project Development Director: ALP MEASUREMENT RESULTS: Intervals: Rate: 57 ND: 180 QRSD: 112 QT: 412 QTc: 401 [place]: P: 43 ND: 180 QRS: 13 T: 29 INTERPRETIVE STATEMENTS: Sinus bradycardia Otherwise normal ECG Compared to ECG 08/25/2023 03:23:04 Sinus rhythm no longer present Incomplete right bundle-branch block no longer present Electronically Signed On 01-21-24 16:57:14 CDT by [place]
--- NOTE | 2024-01-21 17:00 | EKG ---
Test Date: 2024-01-20 Test Time: 09:44:55 Dining Room Coordinator: EUN MEASUREMENT RESULTS: Intervals: Rate: 66 GA: 172 QRSD: 104 QT: 394 QTc: 413 [place]: P: 39 GA: 172 QRS: 61 T: 51 INTERPRETIVE STATEMENTS: Normal sinus rhythm Normal ECG Compared to ECG 08/25/2023 03:23:04 Incomplete right bundle-branch block no longer present Electronically Signed On 01-21-24 16:57:27 CDT by [place]
[2024-01-22 08:37] VITALS: BP 156/90; TEMP 96.9
[2024-01-22] MEDS ORDERED: REGADENOSON 0.4 MG/5 ML SYR IV ONE (08:57)
--- NOTE | 2024-01-22 10:12 | RAD REPORT ---
EXAM DESCRIPTION: NM - Rest Stress Cardiac Imaging - 01/22/2024 10:05 am CLINICAL HISTORY: Chest pain. COMPARISON: None. TECHNIQUE: The patient was administered 10.9 mCi of Tc 99m Sestamibi prior to resting SPECT imaging of the heart. The patient was then administered 29.8 MCi of Tc 99m Sestamibi following exercise or ph armacologic stress. Multiplanar SPECT images were reviewed. FINDINGS: There is uniformity of radiotracer uptake involving the entire left ventricular myocardiu m on stress images. Diminished radiotracer activity involving the inferior left ventricular myocardium on rest images pro bably attenuation from the diaphragm The left ventricular ejection fraction equals 57% IMPRESSION: Negative for a myocardial perfusion defect
[2024-01-22 11:06] VITALS: O2SAT 98
--- NOTE | 2024-01-22 13:51 | TREADPHA ---
DX: CHEST PAIN Date of Study: 01/22/2024 Ht: 6' 1 " Wt: 311 lb 0 oz Consulting Physician: DERIC MEDICATIONS: TYLENOL, ASPIRIN, MORPHINE, ZOFRAN HISTORY: 63 YEAR OLD MALE WITH COMPLAINTS OF CHEST PAIN. HISTORY OF HYPERLIPIDEMIA, ANGINA, BRAIN ANEURSYM. PHYSICIAL EXAMINATION: RESTING B.P.: 138/84 RESTING H.R.: 60 RESTING EKG: NORMAL SINUS, BRADYCARDIA PROTOCOL: PHARMACOLOGIC EXERCISE TIME: 3:30 B.P. AT PEAK STRESS: 155/76 IMPRESSION: LEXISCAN INJECTED. CARDIOLITE INJECTED - SEE NUCLEAR MEDICINE REPORT. COMPLAINTS OF CHEST PAIN; FOUR OUT OF TEN ON PAIN SCALE. NO ARRHYTHMIAS NOTED. NO VENTRICULAR TACHYCARDIA, SUPRAVENTRICULAR TACHYCARDIA. PREMATURE VENTRICULAR COMPLEXES NOTED IN RECOVERY PHASE.
--- NOTE | 2024-02-11 16:55 | P.HP ---
Certification for Inpatient Patient admitted to: Observation With expected LOS: <2 Midnights Patient will require the following post-hospital care: None Practitioner: I am a practitioner with admitting privileges, knowledge of patient current condition, hospital course, and medical plan of care. Services: Services provided to patient in accordance with Admission requirements found in Title 42 Section 412.3 of the Code of Federal Regulations Patient History Date of Service: 01/20/24 Reason for admission: Chest pain History of Present Illness: Patient is a 63-year-old gentleman with PMHx of chest pain. Patient with morbid obesity. Patient's pain started in the sternal region and radiated to the left arm and shoulders. Patient was also having some lightheadedness. Patient was admitted to the hospital for further evaluation. Patient's troponins were negative. Patient's echocardiogram and stress test will be pending. At this time, patient will be admitted for observation. Allergies amoxicillin Allergy (Verified 05/15/23 20:37) Itching hydromorphone [From Dilaudid] Allergy (Verified 05/15/23 20:37) Itching Home Medications: Omeprazole 20 mg PO DAILY 06/18/23 lamoTRIgine [Subvenite] 25 mg PO SEECOM 06/18/23 lamoTRIgine [Subvenite] 50 mg PO DAILY 06/18/23 Tamsulosin [Flomax*] 0.4 mg PO BEDTIME #60 cap 08/26/23 Aspirin [Aspirin EC 81 MG] 162 mg PO DAILY #60 tab 01/22/24 Atorvastatin Calcium [Lipitor] 20 mg PO BEDTIME #30 tab 01/22/24 Clarithromycin [Biaxin*] 250 mg PO BID #30 tab 01/22/24 Lansoprazole [Prevacid] 30 mg PO BID #30 cap 01/22/24 metroNIDAZOLE [Flagyl] 500 mg PO Q12H #30 tab 01/22/24 - Past Medical/Surgical History Has patient received pneumonia vaccine in the past: No Diabetic: No -: Hypertension -: Hyperlipidemia -: CAD -: Hypoglycemia -: GERD -: Sleep apnea -: Cholecystectomy -: Hernia repair -: Knee surgery, shoulder surgery Psychosocial/ Personal History: Lives at home with family - Family History Mother Medical History: Heart disease Father History Unknown: Yes - Social History Smoking Status: Former smoker Alcohol use: No CD- Drugs: No Caffeine use: Yes Place of Residence: Home Review of Systems 10-point ROS is otherwise unremarkable Physical Examination - Vital Signs Temperature: 96.9 F Blood Pressure: 156/90 Pulse: 56 Respirations: 18 Pulse Ox (%): 98 - Physical Exam General: Alert, In no apparent distress, Oriented x3 HEENT: Atraumatic, PERRLA, Mucous membr. moist/pink, EOMI, Sclerae nonicteric Neck: Supple, 2+ carotid pulse no bruit, No LAD, Without JVD or thyroid abnormality Respiratory: Clear to auscultation bilaterally, Normal air movement Cardiovascular: Regular rate/rhythm, Normal S1 S2, No murmurs Gastrointestinal: Normal bowel sounds, Soft and benign, Non-distended, No tenderness Musculoskeletal: No clubbing, No swelling, No tenderness Integumentary: No rashes Neurological: Normal gait, Normal speech, Normal strength at 5/5 x4 extr, Normal tone, Sensation intact, Cranial nerves 3-12 intact, Normal affect Lymphatics: No axilla or inguinal lymphadenopathy Assessment & Plan - Problems (Diagnosis) (1) Chest pain, rule out acute myocardial infarction Status: Acute (2) HTN (hypertension) Status: Acute - Plan 1. Serial troponins and EKG 2. Appreciate Cardiology consultation 3. Echocardiogram and stress test if cardiology is agreeable 4. Anti-platelet therapy, anti coagulation, beta-diann, statin, and O2 as needed 5. IV morphine for pain 6. Nitro p.r.n. Discharge Plan: Home Plan to discharge in: 24 Hours - Advance Directives Does patient have a Living Will: No Does patient have a Durable POA for Healthcare: No - Code Status/Comfort Care Code Status Assessed: Yes Code Status: Full Code Critical Care: No Time Spent Managing PTS Care (In Minutes): 40
--- NOTE | 2024-02-11 16:57 | P.PN ---
Date of Service: 01/21/24 Subjective Patient is clinically doing well. Patient denies any new complaints. Further cardiac workup and stress test pending. Physical Examination - Vital Signs reviewed - Physical Exam General: Alert, In no apparent distress, Oriented x3 Respiratory: Clear to auscultation bilaterally, Normal air movement Cardiovascular: Regular rate/rhythm, Normal S1 S2, No murmurs Gastrointestinal: Normal bowel sounds, Soft and benign, Non-distended, No tenderness Musculoskeletal: No clubbing, No swelling, No tenderness Neurological: No focal deficits Assessment & Plan - Problems (Diagnosis) (1) Chest pain, rule out acute myocardial infarction Status: Acute (2) HTN (hypertension) Status: Acute - Plan Continue with plan of care as mentioned below: 1. Serial troponins and EKG 2. Appreciate Cardiology consultation 3. Echocardiogram and stress test completed and pending results 4. Anti-platelet therapy, anti coagulation, beta-diann, statin, and O2 as needed Discharge Plan: Home Plan to discharge in: 24 Hours
--- NOTE | 2024-02-11 16:58 | P.DS ---
Discharge Date: 01/22/24 Disposition: ROUTINE DISCHARGE Discharge Condition: GOOD Reason for Admission: Chest pain - Problems (1) Chest pain, rule out acute myocardial infarction Status: Acute (2) HTN (hypertension) Status: Acute Brief History of Present Illness: Patient is a 63-year-old gentleman with PMHx of chest pain. Patient with morbid obesity. Patient's pain started in the sternal region and radiated to the left arm and shoulders. Patient was also having some lightheadedness. Patient was admitted to the hospital for further evaluation. Patient's troponins were negative. Patient's echocardiogram and stress test will be pending. At this time, patient will be admitted for observation. Hospital Course: Patient has done well during hospital stay. Clinically, patient is much better. Stress test was negative. Seen by Cardiology and outpatient follow- up. At this time, patient is stable for discharge home. Patient will follow-up with consultants and PCP as an outpatient. Vital Signs/Physical Exam: Temp Pulse Resp BP Pulse Ox 96.9 F 56 18 156/90 H 98 02/11/24 16:55 02/11/24 16:55 02/11/24 16:55 02/11/24 16:55 02/11/24 16:55 General: Alert, In no apparent distress, Oriented x3 Laboratory Data at Discharge: WBC 5.90 thou/uL (4.3-10.9) 01/21/24 06:22 Hgb 13.6 g/dL (13.6-17.9) 01/21/24 06:22 Hct 40.0 % (39.6-49.0) 01/21/24 06:22 Plt Count 194 thou/uL (152-406) 01/21/24 06:22 PT 10.8 SECONDS (9.4-12.5) 01/21/24 06:22 INR 0.96 01/21/24 06:22 APTT 30.2 SECONDS (24.3-36.9) 01/21/24 06:22 Sodium 138 mEq/L (136-145) 01/21/24 06:22 Potassium 4.4 mEq/L (3.5-5.1) 01/21/24 06:22 BUN 19 mg/dL (7-18) H 01/21/24 06:22 Creatinine 0.95 mg/dL (0.70-1.30) 01/21/24 06:22 Glucose 98 mg/dL (74-106) 01/21/24 06:22 Total Bilirubin 0.4 mg/dL (0.2-1.0) 01/21/24 06:22 AST 35 U/L (15-37) 01/21/24 06:22 ALT 65 U/L (16-61) H 01/21/24 06:22 Alkaline Phosphatase 87 U/L (45-117) 01/21/24 06:22 Triglycerides 134 mg/dL (<150) 01/21/24 06:22 Cholesterol 171 mg/dL (<200) 01/21/24 06:22 HDL Cholesterol 47 mg/dL (40-60) 01/21/24 06:22 Cholesterol/HDL Ratio 3.64 01/21/24 06:22 Home Medications: Omeprazole 20 mg PO DAILY 06/18/23 lamoTRIgine [Subvenite] 25 mg PO SEECOM 06/18/23 lamoTRIgine [Subvenite] 50 mg PO DAILY 06/18/23 Tamsulosin [Flomax*] 0.4 mg PO BEDTIME #60 cap 08/26/23 Aspirin [Aspirin EC 81 MG] 162 mg PO DAILY #60 tab 01/22/24 Atorvastatin Calcium [Lipitor] 20 mg PO BEDTIME #30 tab 01/22/24 Clarithromycin [Biaxin*] 250 mg PO BID #30 tab 01/22/24 Lansoprazole [Prevacid] 30 mg PO BID #30 cap 01/22/24 metroNIDAZOLE [Flagyl] 500 mg PO Q12H #30 tab 01/22/24 New Medications: Aspirin [Aspirin EC 81 MG] 162 mg PO DAILY #60 tab Clarithromycin [Biaxin*] 250 mg PO BID #30 tab metroNIDAZOLE [Flagyl] 500 mg PO Q12H #30 tab Atorvastatin Calcium [Lipitor] 20 mg PO BEDTIME #30 tab Lansoprazole [Prevacid] 30 mg PO BID #30 cap Physician Discharge Instructions: -DC IV and DC home -Follow-up with PCP in 1 to 2 weeks -Follow-up with Cardiology in 1 to 2 weeks -Please call Dr. Pena at [phone] if any questions regarding hospital stay -Please call nursing station at [phone] if any nursing or medication questions -Return to the emergency room if symptoms worsen Diet: AHA Activity: Fall precautions Followup: Missy Fernandez NP [Primary Care Provider] - 1-2 Weeks [place] MD [ACTIVE - CAN ADMIT] - 1-2 Weeks Time spent managing pt's care (in minutes): 35
== END 2024-01-22 12:20 | disposition home or self-care (01) ==
LOC: ER 09:39 → ERHOLD 14:23 → 4TH 15:46
PROVIDERS: ADMIT Hospitalist; ATTEND Hospitalist
DX: R07.9 Chest pain, unspecified (principal); I10 Essential (primary) hypertension; R42 Dizziness and giddiness; I25.10 Atherosclerotic heart disease of native coronary artery without angina pectoris; E78.5 Hyperlipidemia, unspecified; E66.01 Morbid (severe) obesity due to excess calories; Z88.1 Allergy status to other antibiotic agents; Z68.41 Body mass index [BMI] 40.0-44.9, adult
CPT/HCPCS: 93005 ×2; 93017; 85025 ×2; 80048; 36415; 85610; 80061; 82947 ×3; 85730; 84484 ×3; 80053; 71275; 74175; 71045; 78452; 96375; 96374; 99285; Q9967; J2785; J2270 ×4; J7030 ×4; A9500; G0378 ×5

== ENCOUNTER 2024-02-02 18:02 | Emergency (ER) | payer OTHER ==
[2024-02-02] MEDS ORDERED: HYDROCODONE/APAP 10/325 TAB ONE (18:38)
[2024-02-02] MEDS ORDERED: IBUPROFEN 400 MG TAB ONE (18:39)
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
[2024-02-02 19:41] VITALS: BP 137/89; TEMP 97.3; O2SAT 96
== END 2024-02-02 19:32 | disposition home or self-care (01) ==
LOC: ER 18:02
DX: T25.221A Burn of second degree of right foot, initial encounter (principal)
CPT/HCPCS: 99284

== ENCOUNTER 2024-04-02 06:59 | Day surgery (SDC) | payer OTHER ==
[2024-03-31 13:19] LABS: Absolute Eosinophils 0.2 K/uL (0-0.5); Absolute Monocytes 0.4 K/uL (0.1-1.3); Absolute Neutrophil 4.7 K/uL (1.8-8.0); Basophils % 0.7 % (0-1.3); Eosinophils % 2.4 % (0-4.4); Hematocrit 43.7 % (39.6-49.0); Lymphocytes % 16.1 % (15.3-44.8); MCHC 34.4 g/dL (32.0-36.0); MCV 90.2 fL (80-100); MPV 8.4 fL (7.6-11.3); Monocytes % 6.9 % (3.3-12.3); Neutrophils % 73.9 % (41.7-73.7); Platelets 193 thou/uL (152-406); RBC Red Blood Cell Count 4.84 M/uL (4.33-5.43); Red Cell Distribution Width 14.8 % (12.1-15.2)
[2024-03-31 13:30] LABS: Anion Gap 7.2 mEq/L (5.0-15.0); Potassium 4.2 mEq/L (3.5-5.1)
[2024-04-02] MEDS ORDERED: Ringers Lactate 1,000 ML IV ONE (07:20)
[2024-04-02] MEDS ORDERED: propofoL 200 MG/20 ML VIAL IV ONE (07:37)
[2024-04-02] MEDS ORDERED: LIDOCAINE 1% MPF 5 ML VIAL ONE (07:37)
[2024-04-02 10:10] VITALS: O2SAT 100
[2024-04-02 10:15] VITALS: BP 144/75; TEMP 97.7
== END 2024-04-02 10:13 | disposition home or self-care (01) ==
LOC: OR 06:59
PROVIDERS: ATTEND Surgery
PROC: 0DB78ZX Excision of Stomach, Pylorus, Via Natural or Artificial Opening Endoscopic, Diagnostic (ICD-10-PCS; 2024-04-02)
PROC: 0DB68ZX Excision of Stomach, Via Natural or Artificial Opening Endoscopic, Diagnostic (ICD-10-PCS; 2024-04-02)
PROC: 0DB48ZX Excision of Esophagogastric Junction, Via Natural or Artificial Opening Endoscopic, Diagnostic (ICD-10-PCS; 2024-04-02)
PROC: 0DB98ZX Excision of Duodenum, Via Natural or Artificial Opening Endoscopic, Diagnostic (ICD-10-PCS; principal; 2024-04-02 08:30)
DX: R10.13 Epigastric pain (principal); K21.9 Gastro-esophageal reflux disease without esophagitis; K29.81 Duodenitis with bleeding; K29.50 Unspecified chronic gastritis without bleeding
CPT/HCPCS: 85025; 80048; 36415; 88312; 88305; 43239; J2704; J2003; J7120; 88304

== ENCOUNTER 2024-06-03 15:57 | Emergency (ER) | payer OTHER ==
[2024-06-03] MEDS ORDERED: IPRATROPIUM BROM 0.5MG/2.5ML ONE (16:46)
[2024-06-03] MEDS ORDERED: ALBUTEROL 2.5 MG/3 ML NEB SOL ONE (16:46)
--- NOTE | 2024-06-03 17:05 | RAD REPORT ---
EXAMINATION: TWO VIEW CHEST XR CLINICAL INDICATION: Cough;Congestion TECHNIQUE: 2 views of the chest was performed. COMPARISON: 01/20/2024 FINDINGS: The lungs are hyperexpanded suggesting COPD. The heart is upper limit of normal in size. No displaced fractures evident. IMPRESSION: COPD is suspected without acute finding identified. The USPSTF recommends annual screening for lung cancer with low-dose computed tomography (LDCT) in ad ults aged 50 to 80 years who have a 20 pack-year smoking history and currently smoke or have quit within the past 15 years. Screening should be discontinued once a person has not smoked for 15 years or develops a health problem that substantially limits life expectancy or the ability or willingness to have curative lung surgery.
--- NOTE | 2024-06-03 17:49 | EDPHYS ---
Physician Documentation [facility] Name: Aravind Tyler Age: 63 yrs Sex: Male : 1960 Arrival Date: 06/03/2024 Time: 15:57 Bed DX5 Private MD: ED Physician Nik Vega HPI: 06/03 16:42 This 63 yrs old Male presents to ER via Ambulatory with complaints of Flu Symptoms. sb4 16:44 sick with FLS x 2-3 weeks. family has similar symptoms. is concerned because it is not sb4 getting better and he doesn't want to develop pneumonia. states that he has a nebulizer at home but doesn't have the mask for it. reports a lot of chest congestion that he is unable to cough up. states fevers have resolved. Historical: - Allergies: 16:16 Amoxicillin; iw 16:16 Dilaudid; iw - PMHx: 16:16 Hypercholesterolemia; coronary atherosclerosis; Back injury; Hypertensive disorder; iw Kidney stone; - PSHx: 16:16 back; hernia; Cholecystectomy; knee; Shoulder; iw ROS: 16:44 Cardiovascular: Negative for chest pain, palpitations, and edema, sb4 16:44 Constitutional: Positive for fatigue, fever, malaise, 16:44 Respiratory: Positive for cough, 16:44 All other systems are negative, Exam: 16:44 Head/Face: Normocephalic, atraumatic. Eyes: Extra-ocular motions intact. Periorbital sb4 areas with no swelling, redness, or edema. ENT: Mucous membranes moist. Cardiovascular: Regular rate and rhythm with a normal S1 and S2. Respiratory: No increased work of breathing, no retractions or nasal flaring. Abdomen/GI: Soft, non-tender, no distension. Skin: Warm, dry with normal turgor. Normal color with no rashes, no lesions, and no evidence of cellulitis. 16:44 Constitutional: The patient appears alert, awake, obese, obviously ill, Vital Signs: 16:14 BP 163 / 82; Pulse 85; Resp 19; Temp 98.9(TE); Pulse Ox 96% on R/A; Weight 136.08 kg; iw Height 6 ft. 2 in. ; Pain 3/10; 16:14 Body Mass Index 38.52 (136.08 kg, 187.96 cm) iw 16:14 Pain Scale: Adult iw MDM: 16:09 Medical Screening Exam initiated que 17:21 Data reviewed: vital signs, nurses notes, radiologic studies, and as a result, I will sb4 discharge patient. Counseling: I had a detailed discussion with the patient and/or guardian regarding the historical points, exam findings, and any diagnostic results supporting the discharge/admit diagnosis, the presence of at least one elevated blood pressure reading (>120/80) during this emergency department visit, radiology results, to return to the emergency department if symptoms worsen or persist or if there are any questions or concerns that arise at home. 06/03 16:20 Order name: Chest Pa And Lat (2 Views) XRAY; Complete Time: 17:16 sb4 Administered Medications: 16:50 Drug: DuoNeb Nebulize (3:1) (2.5 mg - 0.5 mg) 3 ml Nebulizer once Route: Nebulizer; iw 17:10 Follow up: Response: No adverse reaction; Marked relief of symptoms iw Disposition Summary: 06/03/24 17:49 Discharge Ordered Notes: Location: Home sb4 Problem: new sb4 Symptoms: have improved sb4 Condition: Stable sb4 Diagnosis - Acute upper respiratory infection, unspecified sb4 Followup: sb4 - With: Emergency Department - When: As needed - Reason: Trouble breathing, Worsening of condition Discharge Instructions: - Discharge Summary Sheet sb4 - Upper Respiratory Infection, Adult, [id number] sb4 Forms: - Antibiotic Education sb4 - Patient Portal Instructions sb4 - Leadership Thank You Letter sb4 Prescriptions: - Zithromax Z-Maury 250 mg Oral Tablet - take 1 tablet ORAL route as directed for 5 days Day 1 - take two (2) tablets sb4 one time. Day 2, 3, 4 , 5 take one (1) tablet once daily.; 6 tablet; Refills: 0, Product Selection Permitted - Prednisone 20 mg Oral Tablet - take 1 tablet ORAL route every 12 hours for 5 days; 10 tablet; Refills: 0, sb4 Product Selection Permitted Addendum: 06/08/2024 15:27 Co-signature as Attending Physician, Nik Vega MD I agree with the assessment and c young plan of care. Signatures: Dispatcher [employer] Nik Naqvi MD MD cha Williams, Irene, CHAIM RN Airam Quinteros, PA-C PA-C sb4 Corrections: (The following items were deleted from the chart) 06/03 16:21 16:21 Chest Pa And Lat (2 Views)+[email or web address] ordered. EDMS EDMS
--- NOTE | 2024-06-03 17:49 | ER ---
Nurse's Notes [facility] Name: Aravind Tyler Age: 63 yrs Sex: Male : 1960 Arrival Date: 06/03/2024 Time: 15:57 Bed DX5 Private MD: Diagnosis: Acute upper respiratory infection, unspecified Presentation: 06/03 16:14 Chief complaint: Patient states: has been sick X 2 weeks, fatigue, productive cough, iw daughter had the flu. Coronavirus screen: Client presents with at least one sign or symptom that may indicate coronavirus-19. Ebola Screen: No symptoms or risks identified at this time. Initial Sepsis Screen: Does the patient meet any 2 criteria? Does the patient have a suspected source of infection? No. Patient's initial sepsis screen is negative. Risk Assessment: Do you want to hurt yourself or someone else? Patient reports no desire to harm self or others. Onset of symptoms was May 21, 2024. 16:14 Method Of Arrival: Ambulatory iw 16:14 Acuity: TED 3 iw Triage Assessment: 16:15 General: Appears in no apparent distress. Behavior is calm, cooperative. Pain: iw Complains of pain in gneralized body aches. Historical: - Allergies: 16:16 Amoxicillin; iw 16:16 Dilaudid; iw - PMHx: 16:16 Hypercholesterolemia; coronary atherosclerosis; Back injury; Hypertensive disorder; iw Kidney stone; - PSHx: 16:16 back; hernia; Cholecystectomy; knee; Shoulder; iw Screenin:40 [facility] ED Fall Risk Assessment (Adult) History of falling in the last 3 months, iw including since admission No falls in past 3 months (0 pts) Confusion or Disorientation No (0 pts) Intoxicated or Sedated No (0 pts) Impaired Gait No (0 pts) Mobility Assist Device Used No (0 pt) Altered Elimination No (0 pt) Score/Fall Risk Level 0 - 2 = Low Risk Oriented to surroundings, Maintained a safe environment. Abuse screen: Denies threats or abuse. Denies injuries from another. Nutritional screening: No deficits noted. Tuberculosis screening: No symptoms or risk factors identified. Assessment: 16:15 General: Appears in no apparent distress. Behavior is calm, cooperative. Pain:. Neuro: iw Level of Consciousness is awake, alert, obeys commands, Oriented to person, place, time, situation, Moves all extremities. Cardiovascular: Reports shortness of breath, Patient's skin is warm and dry. Respiratory: Reports shortness of breath on exertion cough that is Respiratory effort is even, unlabored, Respiratory pattern is regular, symmetrical. GI: Abdomen is non-distended. Vital Signs: 16:14 BP 163 / 82; Pulse 85; Resp 19; Temp 98.9(TE); Pulse Ox 96% on R/A; Weight 136.08 kg; iw Height 6 ft. 2 in. ; Pain 310; 16:14 Body Mass Index 38.52 (136.08 kg, 187.96 cm) iw 16:14 Pain Scale: Adult iw ED Course: 16:01 Patient arrived in ED. im 16:05 Airam Gallagher PA-C is PHCP. sb4 16:05 Nik Vega MD is Attending Physician. sb4 16:16 Triage completed. iw 16:16 Arm band placed on. iw 16:37 Radha Donovan RN is Primary Nurse. iw 16:51 Chest Pa And Lat (2 Views) XRAY In Process Unspecified. EDMS 18:05 No provider procedures requiring assistance completed. Patient did not have IV access iw during this emergency room visit. Patient maintains SpO2 saturation greater than 95% on room air. Administered Medications: 16:50 Drug: DuoNeb Nebulize (3:1) (2.5 mg - 0.5 mg) 3 ml Nebulizer once Route: Nebulizer; iw 17:10 Follow up: Response: No adverse reaction; Marked relief of symptoms iw Outcome: 17:49 Discharge ordered by . sb4 18:05 Discharged to home ambulatory, iw 18:05 Condition: good 18:05 Discharge instructions given to patient, Instructed on discharge instructions, follow up and referral plans. medication usage, Demonstrated understanding of instructions, follow-up care, medications, Prescriptions given X 2, 18:06 Patient left the ED. db Signatures: Dispatcher [employer] EDMS Radha Donovan RN RN iw Catalina Deutsch RN RN db Brown, Sophia, PA-C PA-C sb4 Yennifer Iglesias im Corrections: (The following items were deleted from the chart) 06/04 07:27 / 16:14 BP 163 / 82; Pulse 85bpm; Resp 19bpm; Pulse Ox 96% RA; 136.08 kg; Height 6 iw ft. 2 in.; BMI: 38.5; Pain 3/10, Adult; iw
[2024-06-03 22:36] VITALS: BP 163/82; O2SAT 96
== END 2024-06-03 18:06 | disposition home or self-care (01) ==
LOC: ER 15:57
DX: J06.9 Acute upper respiratory infection, unspecified (principal); I10 Essential (primary) hypertension; E78.00 Pure hypercholesterolemia, unspecified; Z88.0 Allergy status to penicillin; Z88.5 Allergy status to narcotic agent
CPT/HCPCS: 71046; 99284; J7613; J7644

== ENCOUNTER 2024-08-19 17:05 | Emergency (ER) | payer OTHER ==
--- NOTE | 2024-08-19 19:05 | RAD REPORT ---
EXAMINATION: US bilateral LOWER EXTREMITY VENOUS DOPPLER CLINICAL INDICATION: Leg swelling TECHNIQUE: Sonographic evaluation of the veins of the lower extremity bilaterally formed.Grayscale, c olor and spectral analysis performed on all vessels COMPARISON: No prior exam. FINDINGS: The common femoral, superficial femoral, greater saphenous, popliteal and posterior tibial veins bila terally are compressible and demonstrate augmentation. Doppler demonstrates good flow. IMPRESSION: No evidence of deep venous thrombosis involving either lower extremity
--- NOTE | 2024-08-19 19:16 | RAD REPORT ---
Procedure: Chest Single View HISTORY: Chest pain COMPARISON: June 2024 FINDINGS: The lungs appear clear of acute infiltrate. No significant pleural effusion noted. The heart is normal size. IMPRESSION: No acute abnormality is displayed.
[2024-08-19 19:53] LABS: Absolute Basophils 0.1 K/uL (0-0.5); Absolute Eosinophils 0.2 K/uL (0-0.5); Absolute Lymphocytes (CBC) 1.5 K/uL (0.7-4.9); Absolute Monocytes 0.6 K/uL (0.1-1.3); Absolute Neutrophil 4.5 K/uL (1.8-8.0); Eosinophils % 2.8 % (0-4.4); Hematocrit 45.4 % (39.6-49.0); Hemoglobin 15.7 g/dL (13.6-17.9); Lymphocytes % 22.1 % (15.3-44.8); MCH 30.3 pg (27.0-35.0); MCHC 34.5 g/dL (32.0-36.0); MCV 87.9 fL (80-100); MPV 8.6 fL (7.6-11.3); Monocytes % 8.2 % (3.3-12.3); Neutrophils % 65.9 % (41.7-73.7); Nucleated Red Blood Cells % 0.2 % (0-0); Platelets 180 thou/uL (152-406); RBC Red Blood Cell Count 5.16 M/uL (4.33-5.43); Red Cell Distribution Width 14.3 % (12.1-15.2)
[2024-08-19 19:55] LABS: PT Prothrombin Time 11.9 SECONDS (10-13.0); Protime INR 1.05
[2024-08-19 20:08] LABS: ALT/SGPT 103 U/L (16-61); AST/SGOT 53 U/L (15-37); Albumin 3.8 g/dL (3.4-5.0); Alkaline Phosphatase 120 U/L (45-117); BUN Blood Urea Nitrogen 26 mg/dL (7-18); Bicarbonate 29 mEq/L (21-32); Bilirubin Total 0.5 mg/dL (0.2-1.0); Globulin 3.7 g/dL (2.3-3.5); Glomerular Filtration Rate 83 ml/min (=/>90); Glucose Level 102 mg/dL (74-106); NT PRO-BNP 40 pg/mL (<125); Protein, Total 7.5 g/dL (6.4-8.2); Sodium Level 137 mEq/L (136-145); Troponin High Sensitivity 12.7 pg/mL (<58.9)
[2024-08-19 20:13] LABS: Bilirubin Direct < 0.2 mg/dL (0-0.2); Bilirubin Indirect, Calculated 0.3 mg/dL (0.2-0.8)
[2024-08-19] MEDS ORDERED: FAMOTIDINE 20 MG/2 ML VIAL IV ONE (20:19)
[2024-08-19] MEDS ORDERED: LIDOCAINE VISCOUS 2% 10ML ORAL SOLN ONE (20:19)
[2024-08-19] MEDS ORDERED: MAGNES/ALUMIN/SIMET 30ML UCUP ONE (20:19)
--- NOTE | 2024-08-19 21:00 | EDPHYS ---
Physician Documentation [facility] Name: Aravind Tyler Age: 63 yrs Sex: Male : 1960 Arrival Date: 08/19/2024 Time: 17:05 Bed DX1 Private MD: ED Physician Maurilio Garcia HPI: 08/19 18:05 This 63 yrs old Male presents to ER via Ambulatory with complaints of High Blood cp Pressure, Chest Pain. 18:05 The patient has elevated blood pressure and discovered this at home, with a home device.cp 18:05 Onset: The symptoms/episode began/occurred today. Associated signs and symptoms: cp Pertinent negatives: dizziness, headache, lightheadedness, visual changes, vomiting, weakness. Severity of symptoms: in the emergency department the blood pressure is unchanged, despite home interventions. Patient complains of chest pain in substernal area that started about an hour ago. Patient describes the pain as pressure, indigestion and an ache that he attributes to heartburn. Historical: - Allergies: 17:41 Amoxicillin; iw 17:41 Dilaudid; iw - PMHx: 17:41 Back injury; coronary atherosclerosis; Hypercholesterolemia; Hypertensive disorder; iw Kidney stone; - PSHx: 17:41 Cholecystectomy; back; knee; hernia; Shoulder; iw ROS: 18:10 Constitutional: Negative for body aches, chills, fever, poor PO intake, cp 18:10 Cardiovascular: Positive for chest pain, Negative for edema, palpitations, cp 18:10 Respiratory: Negative for cough, shortness of breath, wheezing, 18:10 Eyes: Negative for injury, pain, redness, and discharge, cp 18:10 Abdomen/GI: Negative for abdominal pain, vomiting, diarrhea, constipation, 18:10 Back: Negative for pain at rest, pain with movement, radiated pain, 18:10 Neuro: Negative for altered mental status, dizziness, headache, numbness, syncope, near syncope, weakness, 18:10 ENT: Negative for drainage from ear(s), ear pain, sore throat, difficulty swallowing, cp difficulty handling secretions, 18:10 All other systems are negative, Exam: 18:15 Constitutional: The patient appears in no acute distress, alert, awake, cp non-diaphoretic, non-toxic, well developed, well nourished, 18:15 Head/Face: Normocephalic, atraumatic. cp 18:15 Eyes: Periorbital structures: appear normal, Conjunctiva: normal, no exudate, no injection, Sclera: no appreciated abnormality, Lids and lashes: appear normal, bilaterally, 18:15 ENT: External ear(s): are unremarkable, Nose: is normal, Mouth: Lips: moist, Oral mucosa: moist, Posterior pharynx: Airway: no evidence of obstruction, patent, 18:15 Neck: ROM/movement: is normal, is supple, without pain, no range of motions limitations, 18:15 Chest/axilla: Inspection: normal, 18:15 Cardiovascular: Rate: tachycardic, Rhythm: regular, Edema: is not appreciated, JVD: is not appreciated, 18:15 Respiratory: the patient does not display signs of respiratory distress, Respirations: normal, no use of accessory muscles, no retractions, labored breathing, is not present, Breath sounds: are clear throughout, no decreased breath sounds, no stridor, no wheezing, 18:15 Abdomen/GI: Inspection: obese Palpation: abdomen is soft and non-tender, in all quadrants, 18:15 Back: pain, is absent, ROM is normal, 18:15 Neuro: Orientation: to person, place \T\ time. Mentation: is normal, Motor: moves all fours, strength is normal, Gait: is steady, 21:03 ECG was reviewed by the Attending Physician. Vital Signs: 17:41 BP 176 / 103; Pulse 107; Resp 18; Temp 97.9; Pulse Ox 97% on R/A; iw 19:52 BP 154 / 89; Pulse 92; Pulse Ox 93% on R/A; af3 MDM: 17:40 Medical Screening Exam initiated cp 21:00 Data reviewed: vital signs, nurses notes, lab test result(s), EKG, radiologic studies, cp plain films. 21:00 Differential diagnosis: hypertensive crisis, Malignant HTN, CVA, intracerebral cp hemorrhage, acute VT. I considered the following discharge prescriptions or medication management in the emergency department Medications were administered in the Emergency Department. See MAR. Independent interpretation of the following test(s) in the Emergency Department EKG: See my EKG interpretation above. Care significantly affected by the following chronic conditions: Hypertension, Obesity. 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 Response to treatment: the patient's symptoms have markedly improved after treatment, and as a result, I will discharge patient. Special discussion: Based on the patient's history, exam, and Dx evaluation, there is no indication for emergent intervention or inpatient Tx. It is understood by the patient/guardian that if the Sx's persist or worsen they need to return immediately for re-evaluation. ED course: VSS. Patient refuses repeat troponin and understands he can return to ED at any time for reevaluation as patient requests discharge to home to continue to monitor symptoms. 08/19 17:59 Order name: Basic Metabolic Panel; Complete Time: 20:33 cp 08/19 17:59 Order name: CBC with Diff; Complete Time: 20:33 cp 08/19 17:59 Order name: LFT's; Complete Time: 20:33 cp 08/19 17:59 Order name: Magnesium; Complete Time: 20:33 cp 08/19 17:59 Order name: NT PRO-BNP; Complete Time: 20:33 cp 08/19 17:59 Order name: PT-INR; Complete Time: 20:33 cp 08/19 17:59 Order name: Troponin HS; Complete Time: 20:33 cp /20 20:34 Interpretation: Reviewed. cp 08/19 17:59 Order name: XRAY Chest (1 view); Complete Time: 20:33 cp 08/19 17:59 Order name: US Extremity Venous W Compression Alen; Complete Time: 20:33 cp 08/19 17:59 Order name: EKG; Complete Time: 17:59 cp 08/19 17:59 Order name: EKG - Nurse/Tech; Complete Time: 19:26 cp 08/19 17:59 Order name: IV Saline Lock; Complete Time: 19:51 cp 08/19 17:59 Order name: Labs collected and sent; Complete Time: 19:51 cp 08/19 17:59 Order name: O2 Per Protocol; Complete Time: 20:11 cp 08/19 17:59 Order name: O2 Sat Monitoring; Complete Time: 20:11 cp EC:03 Rate is 109 beats/min. Rhythm is regular. PA interval is normal. QRS interval is cp normal. QT interval is normal. T waves are Inverted in lead aVR. Interpreted by me. Reviewed by me. Administered Medications: 20:25 Not Given (Patient Refused): aspirinchewable tablet 324 mg PO once; 81 mg tablets x 4 ha1 20:27 Not Given (Patient Refused): morphineor iv 4 mg IVP once over 4 mins ha1 20:27 Drug: Famotidine IVP 10 mg IVP once; dilute with 10 mL 0.9% NaCl; give over 2 minutes ha1 Route: IVP; Site: right antecubital; 20:27 Drug: Alum-Mag Hydroxide-Simeth PO Suspension (200 mg-200 mg-20 mg/5 mL) 30 ml PO once ha1 Route: PO; Disposition Summary: 08/19/24 21:00 Discharge Ordered Notes: Location: Home cp Problem: new cp Symptoms: are resolved cp Condition: Stable cp Diagnosis - Chest pain, unspecified cp Followup: cp - With: Anirudh Pan MD - When: 2 - 3 days - Reason: Recheck today's complaints Discharge Instructions: - Discharge Summary Sheet cp - Nonspecific Chest Pain, Adult cp - Gastroesophageal Reflux Disease, Adult cp - Aspirin and Your Heart cp Forms: - Medication Reconciliation Form cp - Antibiotic Education cp - Prescription Opioid Use cp - Patient Portal Instructions cp - Leadership Thank You Letter cp Signatures: Dispatcher [employer] Radha Tam RN RN iw Page, Corey, PA PA cp Azeb Wang RN RN ha1
--- NOTE | 2024-08-19 21:00 | ER ---
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 Coronavirus screen: At this time, the client does not indicate any symptoms associated with coronavirus-19. Ebola Screen: No symptoms or risks identified at this time. Initial Sepsis Screen: Does the patient meet any 2 criteria? No. Patient's initial sepsis screen is negative. Does the patient have a suspected source of infection? No. Patient's initial sepsis screen is negative. Risk Assessment: Do you want to hurt yourself or someone else? Patient reports no desire to harm self or others. Onset of symptoms was August 19, 2024. 17:40 Method Of Arrival: Ambulatory iw 17:40 Acuity: TED 3 iw Historical: - Allergies: 17:41 Amoxicillin; iw 17:41 Dilaudid; iw - PMHx: 17:41 Back injury; coronary atherosclerosis; Hypercholesterolemia; Hypertensive disorder; iw Kidney stone; - PSHx: 17:41 Cholecystectomy; back; knee; hernia; Shoulder; iw Vital Signs: 17:41 BP 176 / 103; Pulse 107; Resp 18; Temp 97.9; Pulse Ox 97% on R/A; iw 19:52 BP 154 / 89; Pulse 92; Pulse Ox 93% on R/A; af3 ED Course: 17:18 Patient arrived in ED. al6 17:40 Nik Nobles PA is PHCP. cp 17:40 Maurilio Garcia MD is Attending Physician. cp 17:41 Triage completed. iw 18:57 US Extremity Venous W Compression Alen In Process Unspecified. EDMS 19:11 XRAY Chest (1 view) In Process Unspecified. EDMS 19:51 Inserted saline lock: 20 gauge in left antecubital area, using aseptic technique. Blood af3 collected. Flushed with 10 mL NS. 20:11 Azeb Wang RN is Primary Nurse. ha1 21:00 Anirudh Pan MD is Referral Physician. cp 21:14 IV discontinued, intact, bleeding controlled, No redness/swelling at site. Pressure br2 dressing applied. Administered Medications: 20:25 Not Given (Patient Refused): aspirinchewable tablet 324 mg PO once; 81 mg tablets x 4 ha1 20:27 Not Given (Patient Refused): morphineor iv 4 mg IVP once over 4 mins ha1 20:27 Drug: Famotidine IVP 10 mg IVP once; dilute with 10 mL 0.9% NaCl; give over 2 minutes ha1 Route: IVP; Site: right antecubital; 20:27 Drug: Alum-Mag Hydroxide-Simeth PO Suspension (200 mg-200 mg-20 mg/5 mL) 30 ml PO once ha1 Route: PO; Outcome: 21:00 Discharge ordered by . cp 21:14 Patient left the ED. br2 Signatures: Dispatcher [employer] EDMS Radha Donovan RN RN iw Nik Nobles PA PA cp Azeb Wang RN RN ha1 Ariana Stack RN RN br2 Christine Adams af3 Laura King al6
[2024-08-19 22:28] VITALS: TEMP 97.9
[2024-08-19 22:33] VITALS: BP 154/89; O2SAT 93
--- NOTE | 2024-08-23 12:12 | EKG ---
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
== END 2024-08-19 21:14 | disposition home or self-care (01) ==
LOC: ER 17:05
DX: R07.9 Chest pain, unspecified (principal); I10 Essential (primary) hypertension
CPT/HCPCS: 36415; 71045; 80048; 80076; 83735; 83880; 84484; 85025; 85610; 93005; 93970; 96374; 99284